=== PATIENT | male | born 1955 | race Caucasian/White ===

== ENCOUNTER 2019-06-07 12:32 | Observation (INO) ==
--- NOTE | 2019-06-07 13:23 | Emergency Department Note ---
Disposition Clinical Impression: Urinary retention, Hyperkalemia Renal failure Qualifiers: Renal failure chronicity: unspecified chronicity Qualified Code(s): N19 - Uns pecified kidney failure Disposition: Admitted As Inpatient Condition: Fair Time of Disposition: 15:09 General Adult HPI - General Chief complaint: ED General Medical Stated complaint: Stage 5 renal failure Time Seen by Provider: 06/07/19 12:37 Source: patient Mode of arrival: private vehicle Limitations: no limitations Nursing Notes Reviewed: Yes Vital Signs Reviewed: Yes - History of Present Illness HPI Narrative: 63-year-old male history of CHF on Plavix who presents for abnormal labs. States that he was seen on Tuesday by nephrology. He had labs ordered and was called today because they were abnormal. States he was told to come here to start dialysis. He actually has not had any complaints and feels at his baseline. Denies any chest pain or shortness of breath. No fevers, nausea vomiting or diarrhea. He is still having urine output. No other complaints. Pt Subjective Complaint: Abnormal labs Onset (ago): day(s) Pain Scale: 0 Improves with: nothing Worsens with: nothing Associated symptoms: Reports: denies other symptoms - Related Data Home Medications Medication Instructions Recorded Confirmed Aspirin [[place] Aspirin EC] 81 mg PO DAILY 06/07/19 06/07/19 Carvedilol 12.5 mg PO BID 06/07/19 06/07/19 Clopidogrel [Plavix] 75 mg PO DAILY 06/07/19 06/07/19 Furosemide [Lasix] 40 mg PO BID 06/07/19 06/07/19 Losartan Potassium 100 mg PO DAILY 06/07/19 06/07/19 Spironolactone [Aldactone] 25 mg PO DAILY 06/07/19 06/07/19 glipiZIDE [Glipizide] 10 mg PO BID 06/07/19 06/07/19 Allergies Allergy/AdvReac Type Severity Reaction Status Date / Time No Known Allergies Allergy Verified 06/07/19 12:54 All systems ED: reviewed and negative except as stated. Constitutional: Denies: fever Cardiovascular: Denies: chest pain Respiratory: Denies: dyspnea Gastrointestinal: Denies: abdominal pain, nausea, vomiting, diarrhea Genitourinary: Denies: dysuria, hematuria Past Medical History - Past Medical History Attestation: Yes The following information was validated with the patient. Source: patient Medical history: Reports: diabetes Psychiatric history: Reports: no psych history - Social History Smoking Status: Current every day smoker Alcohol use: Reports: none Drug use: Reports: none Physical Exam - General Limitations: no limitations General appearance: alert, in no apparent distress - Head Head exam: atraumatic, normocephalic, normal inspection - Eye Eye exam: Present: normal appearance - ENT ENT exam: normal exam - Neck Neck exam: Present: normal inspection - Chest Chest inspection: Present: normal inspection, symmetric chest wall rise - Respiratory Respiratory exam: Present: normal lung sounds bilaterally - Cardiovascular Cardiovascular exam: Present: regular rate, normal rhythm, irregular rhythm - Abdominal Exam Abdominal exam: Present: soft, Non-Tender. Absent: tenderness, distention, rigidity - Extremities Exam Extremities exam: Present: normal inspection, full ROM - Expanded Upper Extremity Exam Shoulder exam: Present: normal inspection, full ROM Arm exam: Present: normal inspection, full ROM Elbow exam: Present: normal inspection, full ROM Forearm/Wrist exam: Present: normal inspection, full ROM Hand exam: Present: normal inspection, full ROM - Expanded Lower Extremity Exam Hip/Pelvis exam: Present: normal inspection, full ROM Upper leg exam: Present: normal inspection, full ROM Knee exam: Present: normal inspection, full ROM Lower leg exam: Present: normal inspection, full ROM Ankle exam: Present: normal inspection, full ROM Foot/toe exam: Present: normal inspection, full ROM - Skin Skin exam: Present: warm, dry Course Course Narrative: Seen and examined. Vital signs reviewed. Plan for EKG, chest x-ray, CT imaging to evaluate for obstruction, labs and discussed with nephrology with likely admission. - Consultations Consultation #1: Discussed the case with Dr. Griffin in the emergency department. He will see the patient in consultation. Consultation #2: Discussed this case with Dr. Chen on-call for urology. Discussed the patient's exam as well as imaging and labs. Agrees with Carter placement. Cautious on hypotension from removing the patient's significant retained urine. They will see the patient in consultation. Vital Signs Temperature 97.4 F L 06/07/19 12:39 Pulse Rate 58 06/07/19 12:39 Respiratory Rate 18 06/07/19 12:39 Blood Pressure 89/60 06/07/19 12:39 O2 Sat by Pulse Oximetry 100 06/07/19 12:39 Temperature 97.4 F L 06/07/19 12:39 Pulse Rate 58 06/07/19 14:27 Respiratory Rate 18 06/07/19 14:27 Blood Pressure 105/62 06/07/19 14:27 O2 Sat by Pulse Oximetry 98 06/07/19 14:27 Oxygen Delivery Oxygen Delivery Room Air Medical Decision Making - MDM Narrative Medical decision making narrative: 63-year-old male presenting with labs concerning for renal failure. He has no complaints here. CT scan shows a distended bladder consistent with obstructive uropathy. He did have a potassium of 6 which was treated with insulin, D50 and calcium. No EKG changes. Case discussed both with nephrology and urology. The patient is admitted to the hospital service. - Lab Data Lab results reviewed: Yes I reviewed the patient's lab results. Result diagrams: 06/07/19 12:55 06/07/19 12:55 Lab Results 06/07/19 06/07/19 06/07/19 Range/Units 12:55 12:55 12:55 WBC 10.5 (4.3-11.1) K/mcL RBC 3.87 L (4.19-5.50) M/mcL Hgb 11.8 L (12.9-16.9) g/dL Hct 36.0 L (37.5-50.1) % MCV 93.0 (83.0-100.0) fL MCH 30.5 (28.0-33.3) pg MCHC 32.8 (31.6-35.5) g/dL RDW 13.2 (11.5-14.5) % Plt Count 241 (140-400) K/mcL MPV 10.0 (9.4-12.4) fL Immature Gran % 1.1 (0-4) % Seg Neutrophils % 79.6 % Lymphocytes % 13.6 % Monocytes % 4.4 % Eosinophils % 1.0 % Basophils % 0.3 % Neutrophils # 8.4 (1.6-8.9) K/mcL Lymphocytes # 1.4 (0.6-4.6) K/mcL Monocytes # 0.5 (0.0-1.3) K/mcL Eosinophils # 0.1 (0.0-0.6) K/mcL Basophils # 0.0 (0.0-0.2) K/mcL PT 12.0 (9.4-12.1) Seconds INR 1.1 Sodium 133 L (136-145) mEq/L Potassium 6.0 H (3.5-5.1) mEq/L Chloride 92 L (98-107) mEq/L Carbon Dioxide 23 (23-29) mEq/L BUN 88 H (8-23) mg/dL Creatinine 4.39 H (0.70-1.30) mg/dL Est GFR ( Amer) 17 L (> 60) Est GFR (Non-Af Amer) 14 L (> 60) BUN/Creatinine Ratio 20 (6-26) Glucose 152 H (70-105) mg/dL Calculated Osmolality 306 H (280-300) Calcium 10.1 (8.6-10.3) mg/dL Urine Color (Yellow) Urine Clarity (Clear) Urine pH (5.0-8.0) pH Units Ur Specific [place] (1.010-1.025) Urine Protein (Neg-Trace) mg/dL Urine Glucose (UA) (Normal) mg/dL Urine Ketones (Negative) mg/dL Urine Blood (Negative) Urine Nitrite (Negative) Urine Bilirubin (Negative) Urine Urobilinogen (Normal) mg/dL Ur Leukocyte Esterase (Negative) Urine Microscopic RBC (0-3) per hpf Urine Microscopic WBC (0-3) per hpf Ur Squamous Epith Cells (None-Few) per lpf Urine Bacteria (None-Few) per hpf Hyaline Casts (None-Few) per lpf Ur Culture Indicated? (NO) 06/07/19 Range/Units 14:16 WBC (4.3-11.1) K/mcL RBC (4.19-5.50) M/mcL Hgb (12.9-16.9) g/dL Hct (37.5-50.1) % MCV (83.0-100.0) fL MCH (28.0-33.3) pg MCHC (31.6-35.5) g/dL RDW (11.5-14.5) % Plt Count (140-400) K/mcL MPV (9.4-12.4) fL Immature Gran % (0-4) % Seg Neutrophils % % Lymphocytes % % Monocytes % % Eosinophils % % Basophils % % Neutrophils # (1.6-8.9) K/mcL Lymphocytes # (0.6-4.6) K/mcL Monocytes # (0.0-1.3) K/mcL Eosinophils # (0.0-0.6) K/mcL Basophils # (0.0-0.2) K/mcL PT (9.4-12.1) Seconds INR Sodium (136-145) mEq/L Potassium (3.5-5.1) mEq/L Chloride (98-107) mEq/L Carbon Dioxide (23-29) mEq/L BUN (8-23) mg/dL Creatinine (0.70-1.30) mg/dL Est GFR ( Amer) (> 60) Est GFR (Non-Af Amer) (> 60) BUN/Creatinine Ratio (6-26) Glucose (70-105) mg/dL Calculated Osmolality (280-300) Calcium (8.6-10.3) mg/dL Urine Color Yellow (Yellow) Urine Clarity Clear (Clear) Urine pH 5.0 (5.0-8.0) pH Units Ur Specific [place] 1.013 (1.010-1.025) Urine Protein 30 H (Neg-Trace) mg/dL Urine Glucose (UA) Normal (Normal) mg/dL Urine Ketones Negative (Negative) mg/dL Urine Blood Negative (Negative) Urine Nitrite Negative (Negative) Urine Bilirubin Negative (Negative) Urine Urobilinogen Normal (Normal) mg/dL Ur Leukocyte Esterase Negative (Negative) Urine Microscopic RBC 0-3 (0-3) per hpf Urine Microscopic WBC 0-3 (0-3) per hpf Ur Squamous Epith Cells Few (None-Few) per lpf Urine Bacteria None Seen (None-Few) per hpf Hyaline Casts None Seen (None-Few) per lpf Ur Culture Indicated? NO (NO) - Radiology Data Radiology results reviewed: Yes I reviewed the patient's radiology results. Chest X-Ray 06/07/19 12:49 IMPRESSION: Minimal right basilar atelectasis or scarring. D/ / Seymour Murcia MD / Seymour Murcia MD Interpreting Provider: Seymour Murcia MD Abdomen/Pelvis CT 06/07/19 13:17 IMPRESSION: 1. No acute abnormality in the abdomen or pelvis on the noncontrast CT. No hydronephrosis. No renal atrophy. The kidneys measure between 10-10.5 cm in length. 2. Distended urinary bladder up to 15 x 8 x 9 cm to the level of the umbilicus. Mildly enlarged prostate gland. 3. Diffuse atherosclerosis in the abdominal aorta. D/ / Yehuda Alcantar MD / Yehuda Alcantar MD Interpreting Provider: Yehuda Alcantar MD - EKG Data EKG #1 EKG attestation: Yes I reviewed and interpreted this EKG. EKG results narrative: EKG demonstrates a sinus rhythm with a right bundle-branch block with a rate of 64 bpm. Prolonged QRS ration 179. No gross ST elevations or depressions. No acute ischemic findings. S.Hermelinda - Marco Antonio Situation: Demographics, MOA Background: Presenting Complaint, Relevant PMH, Meds, & Allergies Assessment: Course and respsone to treatment, Exam Concerns, Patient/Family Expectation, Pertinant Lab Results Recommendation: Barrier(s) to disposition, Recommendation based on pending studies, treatments, or consults S.BHimanshu Report Given to: Dr. Steph Bernard Repor Time: 14:30
[2019-06-07 13:29] LABS: Calcium 10.1 mg/dL (8.6-10.3)
[2019-06-07 13:30] LABS: Basophils % 0.3 %; Eosinophils # 0.1 K/mcL (0.0-0.6); Hemoglobin 11.8 g/dL (12.9-16.9); Immature Granulocytes % 1.1 % (0-4); Lymphocytes # 1.4 K/mcL (0.6-4.6); Lymphocytes % 13.6 %; Mean Corpuscular HGB Conc 32.8 g/dL (31.6-35.5); Mean Corpuscular Hemoglobin 30.5 pg (28.0-33.3); Monocytes # 0.5 K/mcL (0.0-1.3); Monocytes % 4.4 %; Neutrophils # 8.4 K/mcL (1.6-8.9); Platelet Count 241 K/mcL (140-400); Red Blood Count 3.87 M/mcL (4.19-5.50); Red Cell Distribution Width 13.2 % (11.5-14.5); Segmented Neutrophils % 79.6 %; White Blood Count 10.5 K/mcL (4.3-11.1)
[2019-06-07 13:37] LABS: INR 1.1
[2019-06-07] MEDS ORDERED: Insulin Human Regular 10 UNIT in 0.9 % Sodium Chloride 10 ML IV ONE (13:42)
[2019-06-07] MEDS ORDERED: *HR* Dextrose 50 % in Water (Syg) 50 ML SYRINGE IVP ONE (13:42)
[2019-06-07] MEDS ORDERED: Calcium Gluconate 1gm/50mL 1 GM/50 ML BAG IVPB ONE ×2 (13:43→14:03)
[2019-06-07] MEDS ORDERED: *HR* Dextrose 50 % in Water (Syg) 50 ML SYRINGE ONE (14:12)
[2019-06-07 14:25] LABS: Bilirubin,Urine Negative (Negative); Blood,Urine Negative (Negative); Clarity,Urine Clear (Clear); Color,Urine Yellow (Yellow); Glucose,Urine (UA) Normal (Normal); Ketones,Urine Negative (Negative); Leukocyte Esterase,Urine Negative (Negative); Nitrite,Urine Negative (Negative); Protein,Urine 30 mg/dL (Neg-Trace); Specific Gravity,Urine 1.013 (1.010-1.025); Urobilinogen,Urine Normal (Normal)
[2019-06-07 14:26] LABS: Bacteria,Urine None Seen per hpf (None-Few); Hyaline Casts,Urine None Seen per lpf (None-Few); RBC,Urine 0-3 per hpf (0-3); Squamous Epithelial Cell,Urine Few per lpf (None-Few); WBC,Urine 0-3 per hpf (0-3)
--- NOTE | 2019-06-07 16:07 | Urology - Consult Note ---
<Marianna Tabares N - Last Filed: 06/07/19 16:05> Date of Encounter: 06/07/19 Time of Encounter: 15:45 - Assessment and Plan (1) Urinary retention Current Visit: Yes Status: Acute Assessment and plan: Patient is a 63-year-old male who presents with urinary retention. I suspect this has been an ongoing issue as patient did not appear to be in any discomfort prior to Carter placement. I will start patient on Flomax daily, and he will require an indwelling Carter catheter for approximately 1 week. I will also order a PSA since patient has no record of screening. Anticipate PSA elevation secondary to catheter placement and volume of prostate. We will repeat PSA if needed. We will arrange for an outpatient voiding trial with Dr. Chen. Urology CN:[facility] Consult date: 06/07/19 Reason for consult Urology: Other (urinary retention) Requesting physician: Jerry Belcher History of present illness: Patient is a 63-year-old male who presents with urinary retention and an enlarged prostate. Patient states he underwent blood work with Dr. Tello earlier this week, and [place] [facility] call patient to notify him of critical lab results. Patient was instructed to report to the emergency department to begin dialysis. On initial evaluation, patient was found to have an elevated serum creatinine to 4.39 and GFR 14. Patient underwent a CT of the abdomen and pelvis to rule out uropathy and was found to have a markedly distended bladder to the level of umbilicus as well as an enlarged prostate. Patient denies any abdominal pain or urge to urinate. Patient denies any past history of urinary retention. Patient admits to a baseline of significant nocturia, urinary urgency, frequency and occasional urge incontinence. Patient reports no acute changes in voiding habits. He denies any known family history of prostate or other malignancy. Patient is unsure if he has been screened for prostate cancer. Past Med Surg Social Fam HX - Past Medical History Medical history: diabetes Psychiatric history: no psych history - Past Surgical History Additional surgical history: neck surgery - Social History Smoking Status: Current every day smoker Alcohol use: none Drug use: none - Additional Family History Additional family history: No known documented family history of prostate cancer or malignancy Medications and Allergies Aspirin [[place] Aspirin EC] 81 mg PO DAILY 06/07/19 [History] Carvedilol 12.5 mg PO BID 06/07/19 [History] Clopidogrel [Plavix] 75 mg PO DAILY 06/07/19 [History] Furosemide [Lasix] 40 mg PO BID 06/07/19 [History] Losartan Potassium 100 mg PO DAILY 06/07/19 [History] Spironolactone [Aldactone] 25 mg PO DAILY 06/07/19 [History] glipiZIDE [Glipizide] 10 mg PO BID 06/07/19 [History] Allergy/AdvReac Type Severity Reaction Status Date / Time No Known Allergies Allergy Verified 06/07/19 12:54 Review of Systems - Constitutional no chills, no fatigue, no fever(s) - EENT Nose, mouth and throat: no dizziness, no headache(s) - Cardiovascular no chest pain, no diaphoresis - Respiratory no cough, no dyspnea - Gastrointestinal no abdominal pain, no nausea, no vomiting - Genitourinary nocturia, post void dribbling, urinary frequency, urinary incontinence, urinary urgency, no change in urinary stream, no difficulty urinating, no dysuria, no flank pain, no hematuria, no urinary hesitancy - Musculoskeletal no back pain, no muscle weakness - Integumentary no erythema, no rash - Neurological no confusion, no syncope - Psychiatric no anxiety, no confusion - Hematologic/Lymphatic no easy bleeding, no easy bruising - Allergic/Immunologic no throat swelling, no wheezing Exam Initial Vital Signs Temp Pulse Resp BP Pulse Ox 97.4 F L 58 18 89/60 100 06/07/19 12:39 06/07/19 12:39 06/07/19 12:39 06/07/19 12:39 06/07/19 12:39 - General physical appearance Present: no distress, no pain - Eyes Present: PERRL, normal ocular movement - ENT Present: normal nares - Neck Present: no masses, trachea midline, no lymphadenopathy - Respiratory Present: normal respiratory effort - Cardiovascular Cardiovascular exam IM: bradycardia - Abdomen Abdomen: Present: soft, non tender. Absent: distended - Genitourinary other (Carter catheter is indwelling and draining transparent, clear yellow urine into bedside bag; 900 mL) - Integumentary Present: no rash, no abnormal pigmentation - Neurologic Present: normal coordination - Musculoskeletal Present: other (Normal posture) Urology Results - Labs 06/07/19 12:55 06/07/19 12:55 Abnormal lab results RBC 3.87 M/mcL (4.19-5.50) L 06/07/19 12:55 Hgb 11.8 g/dL (12.9-16.9) L 06/07/19 12:55 Hct 36.0 % (37.5-50.1) L 06/07/19 12:55 Sodium 133 mEq/L (136-145) L 06/07/19 12:55 Potassium 6.0 mEq/L (3.5-5.1) H 06/07/19 12:55 Chloride 92 mEq/L (98-107) L 06/07/19 12:55 BUN 88 mg/dL (8-23) H 06/07/19 12:55 Creatinine 4.39 mg/dL (0.70-1.30) H 06/07/19 12:55 Est GFR ( Amer) 17 (> 60) L 06/07/19 12:55 Est GFR (Non-Af Amer) 14 (> 60) L 06/07/19 12:55 Glucose 152 mg/dL (70-105) H 06/07/19 12:55 Calculated Osmolality 306 (280-300) H 06/07/19 12:55 Urine Protein 30 mg/dL (Neg-Trace) H 06/07/19 14:16 Diabetes panel 06/07/19 Range/Units 12:55 Sodium 133 L (136-145) mEq/L Potassium 6.0 H (3.5-5.1) mEq/L Chloride 92 L (98-107) mEq/L Carbon Dioxide 23 (23-29) mEq/L BUN 88 H (8-23) mg/dL Creatinine 4.39 H (0.70-1.30) mg/dL Glucose 152 H (70-105) mg/dL Calcium 10.1 (8.6-10.3) mg/dL Calcium panel 06/07/19 Range/Units 12:55 Calcium 10.1 (8.6-10.3) mg/dL Pituitary panel 06/07/19 Range/Units 12:55 Sodium 133 L (136-145) mEq/L Potassium 6.0 H (3.5-5.1) mEq/L Chloride 92 L (98-107) mEq/L Carbon Dioxide 23 (23-29) mEq/L BUN 88 H (8-23) mg/dL Creatinine 4.39 H (0.70-1.30) mg/dL Glucose 152 H (70-105) mg/dL Calcium 10.1 (8.6-10.3) mg/dL Adrenal panel 06/07/19 Range/Units 12:55 Sodium 133 L (136-145) mEq/L Potassium 6.0 H (3.5-5.1) mEq/L Chloride 92 L (98-107) mEq/L Carbon Dioxide 23 (23-29) mEq/L BUN 88 H (8-23) mg/dL Creatinine 4.39 H (0.70-1.30) mg/dL Glucose 152 H (70-105) mg/dL Calcium 10.1 (8.6-10.3) mg/dL All other labs normal. - Imaging CT scan - abdomen: report reviewed, image reviewed CT scan - pelvis: report reviewed, image reviewed Consult Discharge Plan - Plan Referrals: Susan Carrion, [employer] [Primary Care Provider] - <Juan Chen - Last Filed: 06/08/19 10:50> Date of Encounter: 06/08/19 - Assessment and Plan (1) Urinary retention Current Visit: Yes Status: Acute Assessment and plan: pt seen and examined in conjunction with PA. agree with findings. will need to keep cath in place for 1-2 weeks before attempted voiding trial. high potential for recurrent retention/neurogenic bladder. will start tamsulosin. may need to consider greenlight PVP as outpatient if continued issues. hopefully renal function will improve with cath drainage. Exam Initial Vital Signs Temp Pulse Resp BP Pulse Ox 97.4 F L 58 18 89/60 100 06/07/19 12:39 06/07/19 12:39 06/07/19 12:39 06/07/19 12:39 06/07/19 12:39 Urology Results - Labs 06/08/19 04:18 06/08/19 04:18 Abnormal lab results RBC 3.31 M/mcL (4.19-5.50) L 06/08/19 04:18 Hgb 10.0 g/dL (12.9-16.9) L D 06/08/19 04:18 Hct 30.8 % (37.5-50.1) L 06/08/19 04:18 Sodium 133 mEq/L (136-145) L 06/07/19 12:55 Potassium 6.0 mEq/L (3.5-5.1) H 06/07/19 12:55 Chloride 92 mEq/L (98-107) L 06/07/19 12:55 BUN 82 mg/dL (8-23) H 06/08/19 04:18 Creatinine 3.85 mg/dL (0.70-1.30) H 06/08/19 04:18 Est GFR ( Amer) 19 (> 60) L 06/08/19 04:18 Est GFR (Non-Af Amer) 16 (> 60) L 06/08/19 04:18 Glucose 152 mg/dL (70-105) H 06/07/19 12:55 POC Glucose 137 mg/dL (70-99) H 06/08/19 06:41 Calculated Osmolality 307 (280-300) H 06/08/19 04:18 Phosphorus 5.8 mg/dL (2.7-4.5) H 06/08/19 04:18 Troponin I 0.05 ng/mL (< 0.04) H* 06/08/19 04:18 Triglycerides 536 mg/dL (< 150) H 06/08/19 04:18 Cholesterol 217 mg/dL (< 200) H 06/08/19 04:18 HDL Cholesterol 21 mg/dL (40-59) L 06/08/19 04:18 Cholesterol/HDL Ratio 10.3 (0-4.9) H 06/08/19 04:18 Urine Protein 30 mg/dL (Neg-Trace) H 06/07/19 18:40 Urine Blood Moderate (Negative) H 06/07/19 18:40 Urine Microscopic RBC 5-15 per hpf (0-3) H 06/07/19 18:40 Urine Microscopic WBC 5-15 per hpf (0-3) H 06/07/19 18:40 Ur Squamous Epith Cells Many per lpf (None-Few) H 06/07/19 18:40 Diabetes panel 06/07/19 06/07/19 06/08/19 Range/Units 12:55 16:16 04:18 Sodium 133 L 136 (136-145) mEq/L Potassium 6.0 H 5.0 5.1 (3.5-5.1) mEq/L Chloride 92 L 100 (98-107) mEq/L Carbon Dioxide 23 23 (23-29) mEq/L BUN 88 H 82 H (8-23) mg/dL Creatinine 4.39 H 3.85 H (0.70-1.30) mg/dL Glucose 152 H 105 (70-105) mg/dL Calcium 10.1 9.8 (8.6-10.3) mg/dL AST 18 (13-39) Units/L ALT 14 (7-52) Units/L Alkaline Phosphatase 64 (34-104) Units/L Albumin 3.8 (3.5-5.7) g/dL Triglycerides 536 H (< 150) mg/dL HDL Cholesterol 21 L (40-59) mg/dL Calcium panel 06/07/19 06/08/19 Range/Units 12:55 04:18 Calcium 10.1 9.8 (8.6-10.3) mg/dL Phosphorus 5.8 H (2.7-4.5) mg/dL Albumin 3.8 (3.5-5.7) g/dL Pituitary panel 06/07/19 06/07/19 06/08/19 Range/Units 12:55 16:16 04:18 Sodium 133 L 136 (136-145) mEq/L Potassium 6.0 H 5.0 5.1 (3.5-5.1) mEq/L Chloride 92 L 100 (98-107) mEq/L Carbon Dioxide 23 23 (23-29) mEq/L BUN 88 H 82 H (8-23) mg/dL Creatinine 4.39 H 3.85 H (0.70-1.30) mg/dL Glucose 152 H 105 (70-105) mg/dL Calcium 10.1 9.8 (8.6-10.3) mg/dL Adrenal panel 06/07/19 06/07/19 06/08/19 Range/Units 12:55 16:16 04:18 Sodium 133 L 136 (136-145) mEq/L Potassium 6.0 H 5.0 5.1 (3.5-5.1) mEq/L Chloride 92 L 100 (98-107) mEq/L Carbon Dioxide 23 23 (23-29) mEq/L BUN 88 H 82 H (8-23) mg/dL Creatinine 4.39 H 3.85 H (0.70-1.30) mg/dL Glucose 152 H 105 (70-105) mg/dL Calcium 10.1 9.8 (8.6-10.3) mg/dL Total Bilirubin 0.4 (0.3-1.0) mg/dL AST 18 (13-39) Units/L ALT 14 (7-52) Units/L Alkaline Phosphatase 64 (34-104) Units/L Albumin 3.8 (3.5-5.7) g/dL All other labs normal.
[2019-06-07] MEDS ORDERED: Ondansetron 4 MG/2 ML VIAL IVP PRN (16:13)
[2019-06-07] MEDS ORDERED: Naloxone 0.4 MG/ML INJ IVP PRN (16:13)
[2019-06-07] MEDS ORDERED: Acetaminophen 325 MG TABLET PO PRN (16:13)
[2019-06-07] MEDS ORDERED: *HR* OxyCODONE Immed Rel 5 MG TABLET PO PRN (16:13)
--- NOTE | 2019-06-07 16:13 | Internal Med History&Physical ---
Date of Encounter: 06/07/19 Time of Encounter: 16:12 Internal Medicine - H&P: HPI Chief complaint: abnormal labs History of present illness: Mr. Swanson is a 63 year old male WITH h/o CHF on furosemide, spironolactone and losartan was sent from nephrology clinic for further evaluation and management of abnormal labs that is suggesting acute kidney injury as well as hyperkalemia, the patient was admitted by the ER staff and his imaging studies was suggestive of severe urine retention, hyperkalemia treated medically. Urology was consulted for further evaluation and management of urinary retention, The patient denying chest pain, shortness of breath, orthopnea, paroxysmal nocturnal dyspnea, Progressive forcing of lower extremity edema, weakness, nausea, vomiting, loss of appetite. Nephrology is also noted to further evaluate that he noted to start renal replacement therapy while inpatient . The patient was admitted for further evaluation and management. Past Med Surg Social Fam HX - Past Medical History Medical history: diabetes Psychiatric history: no psych history - Past Surgical History Additional surgical history: neck surgery - Social History Smoking Status: Current every day smoker Alcohol use: none Drug use: none Internal Medicine - H&P: Meds Aspirin [[place] Aspirin EC] 81 mg PO DAILY 06/07/19 [History] Carvedilol 12.5 mg PO BID 06/07/19 [History] Clopidogrel [Plavix] 75 mg PO DAILY 06/07/19 [History] glipiZIDE [Glipizide] 10 mg PO BID 06/07/19 [History] Tamsulosin [Flomax] 0.4 mg PO DAILY #30 capsule 06/09/19 [Rx] Allergy/AdvReac Type Severity Reaction Status Date / Time No Known Allergies Allergy Verified 06/07/19 12:54 All Systems PM: A 10-system review of systems was performed and is negative for pertinent findings except as documented above in the HPI. - Constitutional Vitals: Temp Pulse Resp BP Pulse Ox 97.2 F L 59 16 96/57 95 06/07/19 16:04 06/07/19 16:04 06/07/19 16:04 06/07/19 16:04 06/07/19 16:04 General appearance: Present: A&O X 3 Exam: , - Head Head exam: Present: atraumatic, normocephalic - Neck Neck exam general surgery: Present: supple, trachea midline. Absent: lymphadenopathy - Respiratory Respiratory exam: Present: CTAB. Absent: accessory muscle use, rales, rhonchi, wheezes - Cardiovascular Cardiovascular exam: Present: RRR, +S1, +S2. Absent: diastolic murmur, gallop, rubs, systolic murmur - GI/Abdominal GI/Abdominal exam: Present: normal bowel sounds, soft, no peritoneal signs. Absent: distended, tenderness - Extremities Exam Extremities exam: Present: warm, radial pulses palpable and symmetrical. Absent: calf tenderness, cyanotic, pedal edema Internal Med - H&P Results - Labs CBC & Chem 7: 06/09/19 07:18 06/09/19 07:18 Labs: Short CBC 06/07/19 Range/Units 12:55 WBC 10.5 (4.3-11.1) K/mcL Hgb 11.8 L (12.9-16.9) g/dL Hct 36.0 L (37.5-50.1) % Plt Count 241 (140-400) K/mcL Neutrophils # 8.4 (1.6-8.9) K/mcL BMP 06/07/19 12:55 Sodium 133 L Potassium 6.0 H Chloride 92 L Carbon Dioxide 23 BUN 88 H Creatinine 4.39 H Glucose 152 H Calcium 10.1 Urine 06/07/19 Range/Units 14:16 Urine Color Yellow (Yellow) Urine Clarity Clear (Clear) Urine pH 5.0 (5.0-8.0) pH Units Ur Specific [place] 1.013 (1.010-1.025) Urine Protein 30 H (Neg-Trace) mg/dL Urine Glucose (UA) Normal (Normal) mg/dL - Impressions ITS Impressions Chest X-Ray 06/07/19 12:49 IMPRESSION: Minimal right basilar atelectasis or scarring. D/ / Seymour Murcia MD / Seymour Murcia MD Interpreting Provider: Seymour Murcia MD Abdomen/Pelvis CT 06/07/19 13:17 IMPRESSION: 1. No acute abnormality in the abdomen or pelvis on the noncontrast CT. No hydronephrosis. No renal atrophy. The kidneys measure between 10-10.5 cm in length. 2. Distended urinary bladder up to 15 x 8 x 9 cm to the level of the umbilicus. Mildly enlarged prostate gland. 3. Diffuse atherosclerosis in the abdominal aorta. D/ / 06/07/2019 14:32:13 Yehuda Alcantar MD / Coreen Salamanca Interpreting Provider: Yehuda Alcantar MD - Assessment and Plan (1) COLETTE (acute kidney injury) Status: Acute Assessment and plan: Imaging studies is suggestive of severe obstructive uropathy, neurology was consulted for further evaluation and management, expect significant recovery after revealed relieving the obstruction, we will hold furosemide, spironolactone and losartan for now, renal dosing of medication as better current EGFR, strict I&O's and repeat renal panel in a.m. (2) Urinary retention Status: Acute (3) Hyperkalemia Status: Acute Assessment and plan: Most likely secondary to renal impairment in the setting of obstructive uropathy, no evidence of EKG changes, repeat level suggestive of successfully m edical management (4) Diabetes mellitus Status: Acute Assessment and plan: We will start the patient insulin sliding scale with coverage. Qualifiers: Diabetes mellitus type: type 2 Diabetes mellitus alf insulin use: without buttermaker use Diabetes mellitus complication status: with hypoglycemia Diabetes mellitus complication detail: without coma Qualified Code(s): E11.649 - Type 2 diabetes mellitus with hypoglycemia without coma - Time Spent With Patient Total time spent is greater than 50% in coordination of care (as documented) at patient's floor/unit and/or counseling patient:
[2019-06-07] MEDS: 0.9 % Sodium Chloride 1,000 ML IVC SCH ×2 (16:59→23:55)
[2019-06-07 17:06] LABS: Troponin I 0.03 ng/mL (< 0.04)
[2019-06-07 19:00] LABS: Bilirubin,Urine Negative (Negative); Blood,Urine Moderate (Negative); Clarity,Urine Clear (Clear); Color,Urine Yellow (Yellow); Glucose,Urine (UA) Normal (Normal); Ketones,Urine Negative (Negative); Leukocyte Esterase,Urine Negative (Negative); Nitrite,Urine Negative (Negative); PH,Urine 5.5 pH Units (5.0-8.0); Protein,Urine 30 mg/dL (Neg-Trace); Specific Gravity,Urine 1.015 (1.010-1.025); Urobilinogen,Urine Normal (Normal)
[2019-06-07 19:03] LABS: Bacteria,Urine None Seen per hpf (None-Few); Hyaline Casts,Urine Few per lpf (None-Few); Squamous Epithelial Cell,Urine Many per lpf (None-Few)
[2019-06-07 19:17] LABS: Transitional Epi Cells,Urine Few per hpf (None-Few)
[2019-06-08 04:51] LABS: Basophils % 0.2 %; Eosinophils # 0.2 K/mcL (0.0-0.6); Eosinophils % 1.7 %; Hematocrit 30.8 % (37.5-50.1); Immature Granulocytes % 0.7 % (0-4); Lymphocytes # 1.8 K/mcL (0.6-4.6); Lymphocytes % 19.3 %; Mean Corpuscular HGB Conc 32.5 g/dL (31.6-35.5); Mean Corpuscular Hemoglobin 30.2 pg (28.0-33.3); Mean Corpuscular Volume 93.1 fL (83.0-100.0); Monocytes # 0.8 K/mcL (0.0-1.3); Monocytes % 8.2 %; Neutrophils # 6.6 K/mcL (1.6-8.9); Platelet Count 212 K/mcL (140-400); Red Blood Count 3.31 M/mcL (4.19-5.50); Red Cell Distribution Width 13.1 % (11.5-14.5); Segmented Neutrophils % 69.9 %; White Blood Count 9.4 K/mcL (4.3-11.1)
[2019-06-08 04:54] LABS: INR 1.1; Prothrombin Time 12.1 Seconds (9.4-12.1)
[2019-06-08 04:58] LABS: Activated Partial Thrombo Time 32.5 Seconds (26.0-36.0)
[2019-06-08 05:09] LABS: Alanine Aminotransferase 14 Units/L (7-52); Albumin 3.8 g/dL (3.5-5.7); Albumin/Globulin Ratio 1.4 (1.1-2.2); Alkaline Phosphatase 64 Units/L (34-104); Aspartate Amino Transferase 18 Units/L (13-39); BUN/Creatinine Ratio 21 (6-26); Bilirubin,Total 0.4 mg/dL (0.3-1.0); Blood Urea Nitrogen 82 mg/dL (8-23); Calcium 9.8 mg/dL (8.6-10.3); Carbon Dioxide 23 mEq/L (23-29); Chloride 100 mEq/L (98-107); Chol/HDL Ratio 10.3 (0-4.9); Cholesterol 217 mg/dL (< 200); Globulin 2.7 g/dL (2.4-3.5); Glucose 105 mg/dL (70-105); HDL Cholesterol 21 mg/dL (40-59); Magnesium 2.6 mg/dL (1.6-2.6); Osmolality,Calculated 307 (280-300); Phosphorous 5.8 mg/dL (2.7-4.5); Potassium 5.1 mEq/L (3.5-5.1); Sodium 136 mEq/L (136-145); Total Protein 6.5 g/dL (6.4-8.9); Triglycerides 536 mg/dL (< 150); eGFR For African Americans 19 (> 60); eGFR For Non-African Americans 16 (> 60)
[2019-06-08] MEDS: Aspirin Enteric Coated 81 MG Tablet PO SCH (07:12)
[2019-06-08] MEDS ORDERED: LOSARTAN POTASSIUM 100 MG PO SCH (09:00)
[2019-06-08] MEDS ORDERED: *HR* Dextrose 50 % in Water (Syg) 50 ML SYRINGE IVP PRN (10:10)
[2019-06-08] MEDS ORDERED: D5% in Water 1,000 ML IVC PRN (10:10)
[2019-06-08] MEDS ORDERED: Dextrose Gel 15 GM/37.5 ML TUBE PO PRN ×2 (10:10)
--- NOTE | 2019-06-08 10:53 | Urology Progress Note ---
Date of Encounter: 06/08/19 Time of Encounter: 10:50 - Assessment and Plan (1) Urinary retention Current Visit: Yes Status: Acute Assessment and plan: dont remove cath. will arrange voiding trial in 1-2 weeks after discharge. s tart tamsulosin. we discussed he is at increased risk for recurrent retention/neurogenic bladder. no further intervention while hospitalized. OK to discharge from standpoint. Nephrology will likely drive decision for discharge. Renal function has improved a little. Progress Note Subjective: feels better Narrative: pt still doing well. no pain. states he was unaware his bladder was so full and had no discomfort. Objective Initial Vital Signs Temp Pulse Resp BP Pulse Ox 97.4 F L 58 18 89/60 100 06/07/19 12:39 06/07/19 12:39 06/07/19 12:39 06/07/19 12:39 06/07/19 12:39 - General physical appearance Present: no distress - Additional Exam urine is clear. - Labs 06/08/19 04:18 06/08/19 04:18 Diabetes panel 06/07/19 06/07/19 06/08/19 Range/Units 12:55 16:16 04:18 Sodium 133 L 136 (136-145) mEq/L Potassium 6.0 H 5.0 5.1 (3.5-5.1) mEq/L Chloride 92 L 100 (98-107) mEq/L Carbon Dioxide 23 23 (23-29) mEq/L BUN 88 H 82 H (8-23) mg/dL Creatinine 4.39 H 3.85 H (0.70-1.30) mg/dL Glucose 152 H 105 (70-105) mg/dL Calcium 10.1 9.8 (8.6-10.3) mg/dL AST 18 (13-39) Units/L ALT 14 (7-52) Units/L Alkaline Phosphatase 64 (34-104) Units/L Albumin 3.8 (3.5-5.7) g/dL Triglycerides 536 H (< 150) mg/dL HDL Cholesterol 21 L (40-59) mg/dL Calcium panel 06/07/19 06/08/19 Range/Units 12:55 04:18 Calcium 10.1 9.8 (8.6-10.3) mg/dL Phosphorus 5.8 H (2.7-4.5) mg/dL Albumin 3.8 (3.5-5.7) g/dL Pituitary panel 06/07/19 06/07/19 06/08/19 Range/Units 12:55 16:16 04:18 Sodium 133 L 136 (136-145) mEq/L Potassium 6.0 H 5.0 5.1 (3.5-5.1) mEq/L Chloride 92 L 100 (98-107) mEq/L Carbon Dioxide 23 23 (23-29) mEq/L BUN 88 H 82 H (8-23) mg/dL Creatinine 4.39 H 3.85 H (0.70-1.30) mg/dL Glucose 152 H 105 (70-105) mg/dL Calcium 10.1 9.8 (8.6-10.3) mg/dL Adrenal panel 06/07/19 06/07/19 06/08/19 Range/Units 12:55 16:16 04:18 Sodium 133 L 136 (136-145) mEq/L Potassium 6.0 H 5.0 5.1 (3.5-5.1) mEq/L Chloride 92 L 100 (98-107) mEq/L Carbon Dioxide 23 23 (23-29) mEq/L BUN 88 H 82 H (8-23) mg/dL Creatinine 4.39 H 3.85 H (0.70-1.30) mg/dL Glucose 152 H 105 (70-105) mg/dL Calcium 10.1 9.8 (8.6-10.3) mg/dL Total Bilirubin 0.4 (0.3-1.0) mg/dL AST 18 (13-39) Units/L ALT 14 (7-52) Units/L Alkaline Phosphatase 64 (34-104) Units/L Albumin 3.8 (3.5-5.7) g/dL Consult Discharge Plan - Plan Referrals: Susan Carrion, FAMILY SERVICES SPECIALIST [Primary Care Provider] -
--- NOTE | 2019-06-08 11:25 | Internal Med Progress Note ---
Hospitalist Progress Note - Encounter Date of Encounter: 06/08/19 Time of Encounter: 09:40 - Subjective Interval History: Patient is awake and alert. Doing better today. He has been having good urine output. No fevers or chills reported overnight. - Exam Vitals: Temp Pulse Resp BP Pulse Ox 97.9 F 62 17 126/71 97 06/08/19 10:52 06/08/19 10:52 06/08/19 10:52 06/08/19 10:52 06/08/19 10:52 Exam: General: Patient is alert, no acute distress, oriented x 3 Respiratory: Good respiratory effort. Normal breath sounds. No wheezing or crackles. Cardiovascular: Regular rate and rhythm. s1 and s2 normal No clicks, rubs, gallops, or murmurs. No pedal edema Abdomen: Abdomen is soft, nontender. Bowel sounds are present Musculoskeletal: Spontaneously moving all extremities Skin: warm, dry, intact. Neuro: Alert oriented x 3 normal cranial nerves, no focal deficits - Assessment and Plan (1) COLETTE (acute kidney injury) Current Visit: Yes Status: Acute (2) Urinary retention Current Visit: Yes Status: Acute (3) Hyperkalemia Current Visit: Yes Status: Acute (4) Diabetes mellitus Current Visit: Yes Status: Acute DVT Prophylaxis: Will place patient on subcutaneous heparin - Summary of Assessment and Plan Summary of Assessment and Plan: Acute kidney injury due to obstructive uropathy: Renal function improving. Continue gentle IV hydration. Creatinine 3.85 today. Continue Carter catheter. Urinary retention: Carter catheter placed. Urology input appreciated. Patient will be discharged with Carter catheter in place when stable for discharge with outpatient follow-up with urology for voiding trial. Diabetes mellitus type 2: Initially had hypoglycemia most likely due to use of glipizide with acute kidney injury. Medications have been held. Blood glucose levels are improving. Will place patient on low-dose correctional scale. Mild troponin elevation: Troponins elevated up to 0.05. Likely due to acute kidney injury. No further workup planned at this time. Hyperkalemia: Improved. Potassium 5.1 today. Will continue to monitor. Moderate risk for complications. - Time Spent with Patient Total time spent is greater than 50% in coordination of care (as documented) at patient's floor/unit and/or counseling patient: Internal Medicine: Result - Labs CBC & Chem 7: 06/08/19 04:18 06/08/19 04:18 Labs: Short CBC 06/07/19 06/08/19 Range/Units 12:55 04:18 WBC 10.5 9.4 (4.3-11.1) K/mcL Hgb 11.8 L 10.0 L D (12.9-16.9) g/dL Hct 36.0 L 30.8 L (37.5-50.1) % Plt Count 241 212 (140-400) K/mcL Neutrophils # 8.4 6.6 (1.6-8.9) K/mcL BMP 06/07/19 06/07/19 06/08/19 12:55 16:16 04:18 Sodium 133 L 136 Potassium 6.0 H 5.0 5.1 Chloride 92 L 100 Carbon Dioxide 23 23 BUN 88 H 82 H Creatinine 4.39 H 3.85 H Glucose 152 H 105 Calcium 10.1 9.8 Cardiac Enzymes 06/07/19 06/07/19 06/08/19 Range/Units 16:16 22:29 04:18 Troponin I 0.03 0.03 0.05 H* (< 0.04) ng/mL 06/08/19 Range/Units 10:00 Troponin I 0.04 H* (< 0.04) ng/mL Liver Function 06/08/19 Range/Units 04:18 Total Bilirubin 0.4 (0.3-1.0) mg/dL AST 18 (13-39) Units/L ALT 14 (7-52) Units/L Alkaline Phosphatase 64 (34-104) Units/L Albumin 3.8 (3.5-5.7) g/dL Urine 06/07/19 06/07/19 Range/Units 14:16 18:40 Urine Color Yellow Yellow (Yellow) Urine Clarity Clear Clear (Clear) Urine pH 5.0 5.5 (5.0-8.0) pH Units Ur Specific [place] 1.013 1.015 (1.010-1.025) Urine Protein 30 H 30 H (Neg-Trace) mg/dL Urine Glucose (UA) Normal Normal (Normal) mg/dL - ABG Interpretation ABG results: PT/INR, D-dimer PT 12.1 Seconds (9.4-12.1) 06/08/19 04:18 - Impressions Impressions Chest X-Ray 06/07/19 12:49 IMPRESSION: Minimal right basilar atelectasis or scarring. D/ / Seymour Murcia MD / Seymour Murcia MD Interpreting Provider: Seymour Murcia MD Abdomen/Pelvis CT 06/07/19 13:17 IMPRESSION: 1. No acute abnormality in the abdomen or pelvis on the noncontrast CT. No hydronephrosis. No renal atrophy. The kidneys measure between 10-10.5 cm in length. 2. Distended urinary bladder up to 15 x 8 x 9 cm to the level of the umbilicus. Mildly enlarged prostate gland. 3. Diffuse atherosclerosis in the abdominal aorta. 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
[2019-06-08] MEDS: 0.9 % Sodium Chloride 1,000 ML IVC SCH ×2 (11:39→21:35)
[2019-06-08] MEDS: Insulin LISPRO 300 UNITS/3 ML VIAL SQ SCH ×2 (11:42→16:58)
--- NOTE | 2019-06-08 12:39 | Electrocardiograph Report ---
[facility] Test Date: 2019-06-07 Pat Name: Roscoe Swanson Department: EXAM8 Room: 2A34 Gender: M Burn Nurse: : [id number] Requested By: Jerry Belcher Order Number: [id number] Reading MD: Silvino Mann Measurements Intervals [place] Rate: 64 P: -77 [place]: 259 QRS: -75 QRSD: 179 T: -28 QT: 451 QTc: 466 Interpretive Statements Sinus or ectopic atrial rhythm Prolonged [place] interval Right bundle branch block Electronically Signed On 06-08-2019 12:37:57 EDT by Silvino Mann
--- NOTE | 2019-06-08 13:36 | Nephrology Consult Note ---
Date of Encounter: 06/08/19 Time of Encounter: 10:15 Assessment and Plan (1) COLETTE (acute kidney injury) Current Visit: Yes Status: Acute Likely secondary to obstructive uropathy, patient had Carter placed with 1 L of urine removed CT abdomen showed a distended bladder Urology is on board started patient on tamsulosin They will try a voiding trial in 1-2 weeks We are unsure patient's baseline please see no evidence EKG Patient's renal function is improving post Carter catheter placement Urine output expected after obstruction We will continue monitor patient's renal function Continue renally protective strategies, avoid nephrotoxic substances, renally dose medications as needed (2) CKD (chronic kidney disease) Current Visit: Yes Status: Acute Unknown baseline for patient Most recent outpatient labs that are available May 25 showed creatinine of 3.36, GFR 21, BUN of 51 Referred recently for decreased kidney function Patient states that his labs in July showed his renal function was fine to his knowledge Patient is on spironolactone and Lasix for congestive heart failure Patient had no urologic symptoms but was retaining urine please see COLETTE Qualifiers: Chronic kidney disease stage: unspecified stage Qualified Code(s): N18.9 - Chronic kidney disease, unspecified (3) Urinary retention Current Visit: Yes Status: Acute Likely secondary to enlarged prostate Carter catheter placed by urology Patient was started on Flomax daily and will have indwelling Carter for approximately one week Voiding trial scheduled with urology History of Present Illness - Reason for Consult Consult date: 06/07/19 Acute Kidney Injury, Chronic Kidney Disease Requesting physician: Jerry Belcher - Chief Complaint Abnormal labs, urinary retention - History of Present Illness Mr. Swanson is a 63-year-old male with history of CHF on furosemide, spironolactone, losartan he was sent from nephrology clinic for evaluation of abnormal labs. Imaging studies suggested urinary retention, hyperkalemia. Urology was consulted and Carter catheter was placed. Patient was treated with insulin, D50, calcium gluconate for potassium of 6.0 with no EKG changes. Patient was seen and examined at bedside today with no complaints. He stated he did not realize that he was retaining urine. He was he has been taking his spironolactone and furosemide for CHF. He had not noticed any increase in swelling or any other signs of worsening kidney failure. He states that he did not notice any urinary symptoms either. Patient denies any chest pain, shortness of breath, abdominal pain, urinary symptoms, weight dictate that patient is at his baseline for mentation. Patient denies any family history of renal failure, dialysis Patient had labs drawn in July he says were just fine for his kidneys so unsure about what caused his kidney function decline Patient denies any NSAID use or decreased oral intake Today's vitals are stable blood pressure 126/71, afebrile Patient input yesterday 1000 mL, output 1200 from catheter, today has received 480 analysis of fluid, 1500 mL CRN from catheter We are unsure of this patient's baseline kidney function is he was recently sent to nephrology for abnormal labs showing a decreased kidney function. Last outside labs that we have available are from May 25 creatinine 3.36, GFR 21, BUN of 51 Labs today show white blood cell count 9.4, hemoglobin of 10, hematocrit 30.8, sodium 136, potassium 5.1 decreased from 6.0 yesterday, chloride 100, BUN 82 decreased from 88 yesterday, creatinine 3.85 decreased from 4.39, GFR 16 increase from 14 yesterday. Patient is to follow up outpatient with urology in 1-2 weeks for voiding trial, was started on tamsulosin for urinary retention Past Med Surg Social Fam HX - Past Medical History Medical history: CVA, diabetes, hyperlipidemia, hypertension Psychiatric history: no psych history - Past Surgical History Surgical History: appendectomy Additional surgical history: neck surgery - Social History Smoking Status: Current every day smoker Packs per day: 1 Smokeless Tobacco Status: No Alcohol use: none Drug use: none Medications and Allergies Aspirin [[place] Aspirin EC] 81 mg PO DAILY 06/07/19 [History] Carvedilol 12.5 mg PO BID 06/07/19 [History] Clopidogrel [Plavix] 75 mg PO DAILY 06/07/19 [History] Furosemide [Lasix] 40 mg PO BID 06/07/19 [History] Losartan Potassium 100 mg PO DAILY 06/07/19 [History] Spironolactone [Aldactone] 25 mg PO DAILY 06/07/19 [History] glipiZIDE [Glipizide] 10 mg PO BID 06/07/19 [History] Allergy/AdvReac Type Severity Reaction Status Date / Time No Known Allergies Allergy Verified 06/07/19 12:54 Review of Systems Constitutional: no chills, no fatigue, no fever(s) Nose, mouth and throat: no dry mouth Cardiovascular: no chest pain, no irregular heart rhythm Respiratory: no cough, no dyspnea Gastrointestinal: no change in bowel habits Genitourinary Male: no urinary frequency, no urinary hesitancy, no urinary incontinence, no urinary urgency Exam - Vital Signs Vital signs: Initial Vital Signs Temp Pulse Resp BP Pulse Ox 97.4 F L 58 18 89/60 100 06/07/19 12:39 06/07/19 12:39 06/07/19 12:39 06/07/19 12:39 06/07/19 12:39 Vital Signs - Last 8 Hours Temp Pulse Resp BP Pulse Ox 06/08/19 10:52 97.9 F 62 17 126/71 97 06/08/19 07:13 98 06/08/19 06:42 98.0 F 65 17 143/67 98 Intake and Output 06/07/19 06/08/19 06/08/19 23:59 07:59 15:59 Intake Total 1000 / 1000 480 / 480 Output Total 1200 / 1200 800 / 1500 700 / 1500 Balance -200 / -200 -800 / -1020 -220 / -1020 Intake: IV Fluids 1000 / 1000 0.9 % Sodium Chloride 1,000 ML 1000 / 1000 @ 125 mls/hr IVC .Q8H [facility] Rx#: [id number] Oral 480 / 480 Output: Catheter 1200 / 1200 800 / 1500 700 / 1500 Other: Meal Lunch Percent of Meal Consumed 60% Weight 83.3 kg Blood Glucose* 158 137 196 Patient Weight 06/08/19 23:59 Weight 83.3 kg - General Appearance General appearance: well-developed, well-nourished EENT: mucous membranes moist Neck: no JVD, supple Respiratory: clear Cardiology: no murmurs, no rub, no gallops, no edema Gastrointestinal: normoactive bowel sounds, no tenderness, no guarding Integumentary: no rash, warm and dry Results - Lab Results 06/08/19 04:18 06/08/19 04:18 Most recent lab results 06/08/19 04:18 Calcium 9.8 Phosphorus 5.8 H Magnesium 2.6 Consult Discharge Plan - Plan Referrals: Susan Carrion, REFINERY OPERATOR [employer] [facility] [Primary Care Provider] -
[2019-06-08] MEDS: *HR* Heparin 5,000 UNIT/ML VIAL SQ SCH (16:58)
[2019-06-08] MEDS ORDERED: Insulin LISPRO 300 UNITS/3 ML VIAL SQ SCH (21:00)
[2019-06-09] MEDS: *HR* Heparin 5,000 UNIT/ML VIAL SQ SCH (05:36)
[2019-06-09 08:05] LABS: Basophils % 0.3 %; Eosinophils # 0.2 K/mcL (0.0-0.6); Eosinophils % 2.5 %; Hematocrit 30.7 % (37.5-50.1); Hemoglobin 9.8 g/dL (12.9-16.9); Immature Granulocytes % 0.9 % (0-4); Lymphocytes # 2.1 K/mcL (0.6-4.6); Lymphocytes % 24.1 %; Mean Corpuscular HGB Conc 31.9 g/dL (31.6-35.5); Mean Corpuscular Hemoglobin 30.2 pg (28.0-33.3); Mean Corpuscular Volume 94.5 fL (83.0-100.0); Mean Platelet Volume 10.1 fL (9.4-12.4); Monocytes # 0.8 K/mcL (0.0-1.3); Monocytes % 8.8 %; Neutrophils # 5.6 K/mcL (1.6-8.9); Platelet Count 222 K/mcL (140-400); Red Blood Count 3.25 M/mcL (4.19-5.50); Red Cell Distribution Width 13.2 % (11.5-14.5); Segmented Neutrophils % 63.4 %; White Blood Count 8.8 K/mcL (4.3-11.1)
[2019-06-09] MEDS: Insulin LISPRO 300 UNITS/3 ML VIAL SQ SCH ×2 (08:05→12:01)
[2019-06-09] MEDS: 0.9 % Sodium Chloride 1,000 ML IVC SCH (08:11)
[2019-06-09] MEDS: Aspirin Enteric Coated 81 MG Tablet PO SCH (08:11)
[2019-06-09 08:27] LABS: Calcium 9.9 mg/dL (8.6-10.3); Potassium 5.3 mEq/L (3.5-5.1)
[2019-06-09 11:28] VITALS: BP 121/64
--- NOTE | 2019-06-09 11:42 | Discharge Summary ---
- NOTES TO OUTPATIENT PROVIDER Notes to Outpatient Provider: Patient with a history of congestive heart failure on Lasix, spironolactone and losartan was hospitalized here with acute kidney injury. His creatinine on arrival was 4.39. He has been having urinary retention and was diagnosed with obstructive uropathy. Carter catheter was placed and urology was consulted. Patient was started on Flomax. His renal function has improved and urology recommends outpatient follow-up with Carter in place in 1-2 weeks for voiding trial. At this time his creatinine has come down to 2.38. He is clinically stable for discharge. Would recommend holding off on diuretics till he follows up with nephrology. 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 Swanson is a 63 year old male Patient with a history of congestive heart failure on Lasix, spironolactone and losartan was hospitalized here with acute kidney injury. His creatinine on arrival was 4.39. He has been having urinary retention and was diagnosed with obstructive uropathy. Carter catheter was placed and urology was consulted. Patient was started on Flomax. His renal function has improved and urology recommends outpatient follow-up with Carter in place in 1-2 weeks for voiding trial. At this time his creatinine has come down to 2.38. He is clinically stable for discharge. Would recommend holding off on diuretics till he follows up with nephrology. Discharge discussed with: patient, family - Time Spent with Patient Total time spent providing and/or coordinating discharge services: Time spent: Less than 30 minutes (25 min) - Discharge Medications Prescriptions: New Tamsulosin [Flomax] 0.4 mg PO DAILY #30 capsule Continued Clopidogrel [Plavix] 75 mg PO DAILY Carvedilol 12.5 mg PO BID Aspirin [[place] Aspirin EC] 81 mg PO DAILY glipiZIDE [Glipizide] 10 mg PO BID Discontinued Spironolactone [Aldactone] 25 mg PO DAILY Furosemide [Lasix] 40 mg PO BID Losartan Potassium 100 mg PO DAILY Home Medications: Aspirin [[place] Aspirin EC] 81 mg PO DAILY 06/07/19 [History] Carvedilol 12.5 mg PO BID 06/07/19 [History] Clopidogrel [Plavix] 75 mg PO DAILY 06/07/19 [History] glipiZIDE [Glipizide] 10 mg PO BID 06/07/19 [History] Tamsulosin [Flomax] 0.4 mg PO DAILY #30 capsule 06/09/19 [Rx] Allergies/Adverse Reactions: Allergy/AdvReac Type Severity Reaction Status Date / Time No Known Allergies Allergy Verified 06/07/19 12:54 Date of admission: 06/07/19 14:39 Primary care physician: Susan Carrion CNP Consults: 06/07/19 14:27 Consult to Nephrology [CONS] Stat Consulting Provider: [facility]/ANTHONY/LALITA/OZ Reason for Consult: renal failure, hyperkalemia Call Completed: Yes Consult to Urology [CONS] Stat Consulting Provider: [facility] [place] Reason for Consult: post obstructive uropathy Time Notified: 14:28 Call Completed: Yes Discharging clinician: Naya Christopher Anticipated date of discharge: 06/09/19 - Constitutional Vitals: Temp Pulse Resp BP Pulse Ox 97.6 F 58 16 121/64 97 06/09/19 11:26 06/09/19 11:26 06/09/19 11:26 06/09/19 11:26 06/09/19 11:26 General appearance: Present: A&O X 3, answers questions appropriately Exam: General: Patient is alert, no acute distress, oriented x 3 Respiratory: Good respiratory effort. Normal breath sounds. No wheezing or crackles. Cardiovascular: Regular rate and rhythm. s1 and s2 normal No clicks, rubs, gallops, or murmurs. No pedal edema Abdomen: Abdomen is soft, nontender. Bowel sounds are present Musculoskeletal: Spontaneously moving all extremities Skin: warm, dry, intact. Neuro: Alert oriented x 3 normal cranial nerves, no focal deficits - Patient Status Disposition: Home, Self-Care Condition: Fair Functional capacity at discharge: independent ambulation Overall status at discharge: patient is progressing back to baseline - Discharge Instructions Follow Up With: Susan Carrion CNP [Primary Care Provider] - (in 1-2 weeks) Maurice Tello DO [Partnered Physician] - (in 1-2 weeks) - Diet and Activity Activity: as per physical therapy Diet: diabetic diet, low salt diet, other (renal diet; Fluid restriction to 1.5L/day)
== END 2019-06-09 13:31 | disposition home or self-care (01) ==
LOC: 2ANU 12:32 → EMEROOARM 12:32 → SUATTDRO 14:39 → 2ANU 15:30
PROVIDERS: ADMIT Internal Medicine Nephrology; ATTEND Internal Medicine

== ENCOUNTER 2019-07-25 13:51 | Inpatient (IN) ==
[2019-07-25] MEDS ORDERED: 0.9 % Sodium Chloride 1,000 ML IVC ONE ×2 (14:08→14:35)
[2019-07-25] MEDS ORDERED: Isovue-370 500 ML BOTTLE IVP ONE ×2 (14:14→19:56)
[2019-07-25] MEDS ORDERED: Piperacillin/Tazobactam 3.375 GM in 0.9 % Sodium Chloride Mini Bag 100 ML IVPB ONE (14:15)
[2019-07-25 14:51] LABS: Basophils % 0.3 %; Eosinophils # 0.2 K/mcL (0.0-0.6); Eosinophils % 1.6 %; Hematocrit 29.2 % (37.5-50.1); Hemoglobin 9.4 g/dL (12.9-16.9); Immature Granulocytes % 0.6 % (0-4); Lymphocytes # 1.5 K/mcL (0.6-4.6); Mean Corpuscular HGB Conc 32.2 g/dL (31.6-35.5); Mean Corpuscular Hemoglobin 29.9 pg (28.0-33.3); Mean Platelet Volume 9.7 fL (9.4-12.4); Neutrophils # 10.9 K/mcL (1.6-8.9); Platelet Count 276 K/mcL (140-400); Red Blood Count 3.14 M/mcL (4.19-5.50); Red Cell Distribution Width 13.3 % (11.5-14.5); Segmented Neutrophils % 79.5 %; White Blood Count 13.7 K/mcL (4.3-11.1)
[2019-07-25 14:58] LABS: INR 1.2; Prothrombin Time 13.2 Seconds (9.4-12.1)
[2019-07-25 15:01] LABS: Activated Partial Thrombo Time 32.5 Seconds (26.0-36.0)
[2019-07-25 15:07] LABS: Troponin I 0.06 ng/mL (< 0.04)
--- NOTE | 2019-07-25 15:09 | Emergency Department Note ---
Disposition Clinical Impression: Open fracture, Foot abscess Disposition: Admitted As Inpatient Condition: Good Referrals: Jessenia Self MD [Primary Care Provider] - Forms: ED Satisfaction Letter Time of Disposition: 17:32 General Adult HPI - General Chief complaint: ED Extremity Problem,Nontraumatic Stated complaint: Left foot wound Time Seen by Provider: 07/25/19 14:01 Source: patient Mode of arrival: private vehicle Limitations: no limitations Nursing Notes Reviewed: Yes Vital Signs Reviewed: Yes - History of Present Illness HPI Narrative: 64-year-old male with a past medical history of diabetes, CAD, carotid stenting, but is a current every day smoker complains of left third toe pain that is been ongoing for the last 2 months. He reports that he initially had what looked to be an infection and he was placed on antibiotics and he states that he got somewhat better, then his toenail fell off, and then his noted that his toe looked black this morning so she brought him for evaluation. Patient notes sig nificant pain to the digit, states that it is sharp pain. He states that he cannot really move his foot without any pain. Pain Scale: 10 - Related Data Home Medications Medication Instructions Recorded Confirmed Aspirin [[place] Aspirin EC] 81 mg PO DAILY 06/07/19 07/25/19 Carvedilol 12.5 mg PO BID 06/07/19 07/25/19 Clopidogrel [Plavix] 75 mg PO DAILY 06/07/19 07/25/19 glipiZIDE [Glipizide] 10 mg PO BID 06/07/19 07/25/19 Allopurinol [Zyloprim 100 MG] 100 mg PO DAILY 07/25/19 07/25/19 Cholecalciferol (Vitamin D3) 50,000 unit PO DAILY 07/25/19 07/25/19 [Vitamin D] Furosemide [Lasix] 40 mg PO BID 07/25/19 07/25/19 Omeprazole [PriLOSEC] 20 mg PO DAILY 07/25/19 07/25/19 Allergies Allergy/AdvReac Type Severity Reaction Status Date / Time No Known Allergies Allergy Verified 06/21/19 08:20 Review of Systems: In addition to that documented in the HPI above, the additional ROS was obtained: Constitutional: Denies fevers or chills Eyes: Denies vision changes ENMT: Denies sore throat CV: Denies chest pain Resp: Denies SOB GI: Denies vomiting or diarrhea : Denies painful urination MSK: Denies recent trauma Skin: Denies new rashes Neuro: Denies new numbness or tingling or weakness, even when asked specifically if he has neuropathy Endocrine: Denies unexpected weight loss Heme: Denies bleeding disorders Past Medical History - Past Medical History Attestation: Yes The following information was validated with the patient. Medical history: Reports: CVA, diabetes, hyperlipidemia, hypertension Surgical history: Reports: appendectomy Psychiatric history: Reports: no psych history - Social History Smoking Status: Current every day smoker Smokeless Tobacco Status: No Alcohol use: Reports: none Drug use: Reports: none Physical Exam General: No acute distress. Well developed, well nourished. Head: atraumatic, normocephalic. ENT: No conjunctival injection, no scleral icterus. PERRLA. EOMI. Oropharynx non- erythematous. mucous membranes moist. Neuro: No focal deficits, no speech deficit, no facial droop, mentating well. BUE/BLE Str 5/5. Pulm: Lungs CTAB A/P. No wheezes, rales, ronchi. Cardio: RRR no m/r/g. Chest not tender to palpation. Abd: Soft, non-distended. Normoactive bowel sounds. Non-tender to palpation. No guarding. Non rigid. Extremities: Radial pulses 2+ chinmay, no palpable pulses in chinmay LE but lower extremities are warm and almita appropriately. Left third toe is purple, has a laceration across the anterior aspect of the toe, and there is a strong odor associated with the toe. He has significant tenderness to palpation. Skin: Other than noted above, warm, dry, intact. No rashes. Psych: Appropriate mood and affect. Answers questions appropriately. Cooperative with exam. - General Limitations: no limitations General appearance: alert, in no apparent distress Course - Consultations Consultation #1: Spoke with Dr. Lopez from podiatry who requested the last known meal of the patient and requested admission to the hospitalist. Will obtain last meal and admit. Time: 17:07 Vital Signs Temperature 98.6 F 07/25/19 13:54 Pulse Rate 54 07/25/19 13:54 Respiratory Rate 16 07/25/19 13:54 Blood Pressure 73/38 07/25/19 13:54 O2 Sat by Pulse Oximetry 99 07/25/19 13:54 Temperature 98.6 F 07/25/19 13:54 Pulse Rate 71 07/25/19 16:18 Respiratory Rate 10 07/25/19 16:18 Blood Pressure 114/53 07/25/19 16:18 O2 Sat by Pulse Oximetry 96 07/25/19 16:18 Oxygen Delivery Oxygen Delivery Room Air Medical Decision Making - MDM Narrative Medical decision making narrative: 64-year-old male with a past medical history of diabetes that presents for pain, swelling, gangrenous appearance of left third toe. We will obtain CT of his left foot, we will administer fluids, we will admit with podiatry consult. 1513: Troponin is elevated at 0.06, however chart review reveals that he has had elevated troponins in the past. Patient is chest pain-free, I believe the elevated troponin is secondary to his renal disease. We will cover the patient with an aspirin. 1732: Pt CT of foot showed abscess with gas in the third left toe with open fracture. Pt was covered with antibiotics including clarithromycin, vancomycin, and zosyn. Podiatry was called, details of the consult are in the course notes. They requested that we keep the patient NPO. Pt was admitted to the hospitalist, Dr Licea, who agreed to accept the patient to his service. Results of the workup including any imaging and/or labwork was shared with the patient at bedside. Patient was given an opportunity to ask questions at bedside and all of their concerns were addressed. Patient verbalized understanding and agreement with plan of care. Pt remained stable while in the department. - Medical Records Medical records reviewed: Yes I reviewed the patient's medical records. - Lab Data Lab results reviewed: Yes I reviewed the patient's lab results. Result diagrams: 07/25/19 14:28 07/25/19 14:28 Lab Results 07/25/19 07/25/19 07/25/19 Range/Units 14:28 14:28 14:28 WBC 13.7 H (4.3-11.1) K/mcL RBC 3.14 L (4.19-5.50) M/mcL Hgb 9.4 L (12.9-16.9) g/dL Hct 29.2 L (37.5-50.1) % MCV 93.0 (83.0-100.0) fL MCH 29.9 (28.0-33.3) pg MCHC 32.2 (31.6-35.5) g/dL RDW 13.3 (11.5-14.5) % Plt Count 276 (140-400) K/mcL MPV 9.7 (9.4-12.4) fL Immature Gran % 0.6 (0-4) % Seg Neutrophils % 79.5 % Lymphocytes % 11.0 % Monocytes % 7.0 % Eosinophils % 1.6 % Basophils % 0.3 % Neutrophils # 10.9 H (1.6-8.9) K/mcL Lymphocytes # 1.5 (0.6-4.6) K/mcL Monocytes # 1.0 (0.0-1.3) K/mcL Eosinophils # 0.2 (0.0-0.6) K/mcL Basophils # 0.0 (0.0-0.2) K/mcL ESR (0-10) mm/hr PT 13.2 H (9.4-12.1) Seconds INR 1.2 APTT 32.5 (26.0-36.0) Seconds VBG pH (7.32-7.42) pH Units VBG pCO2 (41-51) mmHg VBG pO2 (25-50) mmHg VBG HCO3 (21-27) mEq/L Sodium 135 L (136-145) mEq/L Potassium 4.0 (3.5-5.1) mEq/L Chloride 98 (98-107) mEq/L Carbon Dioxide 27 (23-29) mEq/L BUN 26 H (8-23) mg/dL Creatinine 1.92 H (0.70-1.30) mg/dL Est GFR ( Amer) 43 L (> 60) Est GFR (Non-Af Amer) 36 L (> 60) BUN/Creatinine Ratio 14 (6-26) Glucose 133 H (70-105) mg/dL Calculated Osmolality 287 (280-300) Calcium 9.6 (8.6-10.3) mg/dL Phosphorus 3.6 (2.7-4.5) mg/dL Magnesium 2.1 (1.6-2.6) mg/dL Total Bilirubin 0.5 (0.3-1.0) mg/dL Direct Bilirubin 0.1 (0.0-0.2) mg/dL Indirect Bilirubin 0.4 (0.0-1.2) mg/dL AST 12 L (13-39) Units/L ALT 11 (7-52) Units/L Alkaline Phosphatase 87 (34-104) Units/L Troponin I 0.06 H* (< 0.04) ng/mL C-Reactive Protein 90 H (Less than 10) mg/L Serum Total Protein 7.0 (6.4-8.9) g/dL Albumin 3.9 (3.5-5.7) g/dL Globulin 3.1 (2.4-3.5) g/dL Albumin/Globulin Ratio 1.3 (1.1-2.2) Beta-Hydroxybutyric Acd (0.02-0.27) mmol/L Specimen Rejected 07/25/19 07/25/19 07/25/19 Range/Units 14:28 15:31 15:43 WBC (4.3-11.1) K/mcL RBC (4.19-5.50) M/mcL Hgb (12.9-16.9) g/dL Hct (37.5-50.1) % MCV (83.0-100.0) fL MCH (28.0-33.3) pg MCHC (31.6-35.5) g/dL RDW (11.5-14.5) % Plt Count (140-400) K/mcL MPV (9.4-12.4) fL Immature Gran % (0-4) % Seg Neutrophils % % Lymphocytes % % Monocytes % % Eosinophils % % Basophils % % Neutrophils # (1.6-8.9) K/mcL Lymphocytes # (0.6-4.6) K/mcL Monocytes # (0.0-1.3) K/mcL Eosinophils # (0.0-0.6) K/mcL Basophils # (0.0-0.2) K/mcL ESR 112 H (0-10) mm/hr PT (9.4-12.1) Seconds INR APTT (26.0-36.0) Seconds VBG pH 7.37 (7.32-7.42) pH Units VBG pCO2 48 (41-51) mmHg VBG pO2 57 H (25-50) mmHg VBG HCO3 27 (21-27) mEq/L Sodium (136-145) mEq/L Potassium (3.5-5.1) mEq/L Chloride (98-107) mEq/L Carbon Dioxide (23-29) mEq/L BUN (8-23) mg/dL Creatinine (0.70-1.30) mg/dL Est GFR ( Amer) (> 60) Est GFR (Non-Af Amer) (> 60) BUN/Creatinine Ratio (6-26) Glucose (70-105) mg/dL Calculated Osmolality (280-300) Calcium (8.6-10.3) mg/dL Phosphorus (2.7-4.5) mg/dL Magnesium (1.6-2.6) mg/dL Total Bilirubin (0.3-1.0) mg/dL Direct Bilirubin (0.0-0.2) mg/dL Indirect Bilirubin (0.0-1.2) mg/dL AST (13-39) Units/L ALT (7-52) Units/L Alkaline Phosphatase (34-104) Units/L Troponin I (< 0.04) ng/mL C-Reactive Protein (Less than 10) mg/L Serum Total Protein (6.4-8.9) g/dL Albumin (3.5-5.7) g/dL Globulin (2.4-3.5) g/dL Albumin/Globulin Ratio (1.1-2.2) Beta-Hydroxybutyric Acd 0.28 H (0.02-0.27) mmol/L Specimen Rejected 07/25/19 Range/Units 16:22 WBC (4.3-11.1) K/mcL RBC (4.19-5.50) M/mcL Hgb (12.9-16.9) g/dL Hct (37.5-50.1) % MCV (83.0-100.0) fL MCH (28.0-33.3) pg MCHC (31.6-35.5) g/dL RDW (11.5-14.5) % Plt Count (140-400) K/mcL MPV (9.4-12.4) fL Immature Gran % (0-4) % Seg Neutrophils % % Lymphocytes % % Monocytes % % Eosinophils % % Basophils % % Neutrophils # (1.6-8.9) K/mcL Lymphocytes # (0.6-4.6) K/mcL Monocytes # (0.0-1.3) K/mcL Eosinophils # (0.0-0.6) K/mcL Basophils # (0.0-0.2) K/mcL ESR (0-10) mm/hr PT (9.4-12.1) Seconds INR APTT (26.0-36.0) Seconds VBG pH (7.32-7.42) pH Units VBG pCO2 (41-51) mmHg VBG pO2 (25-50) mmHg VBG HCO3 (21-27) mEq/L Sodium (136-145) mEq/L Potassium (3.5-5.1) mEq/L Chloride (98-107) mEq/L Carbon Dioxide (23-29) mEq/L BUN (8-23) mg/dL Creatinine (0.70-1.30) mg/dL Est GFR ( Amer) (> 60) Est GFR (Non-Af Amer) (> 60) BUN/Creatinine Ratio (6-26) Glucose (70-105) mg/dL Calculated Osmolality (280-300) Calcium (8.6-10.3) mg/dL Phosphorus (2.7-4.5) mg/dL Magnesium (1.6-2.6) mg/dL Total Bilirubin (0.3-1.0) mg/dL Direct Bilirubin (0.0-0.2) mg/dL Indirect Bilirubin (0.0-1.2) mg/dL AST (13-39) Units/L ALT (7-52) Units/L Alkaline Phosphatase (34-104) Units/L Troponin I (< 0.04) ng/mL C-Reactive Protein (Less than 10) mg/L Serum Total Protein (6.4-8.9) g/dL Albumin (3.5-5.7) g/dL Globulin (2.4-3.5) g/dL Albumin/Globulin Ratio (1.1-2.2) Beta-Hydroxybutyric Acd (0.02-0.27) mmol/L Specimen Rejected Accident - Radiology Data Radiology results reviewed: Yes I reviewed the patient's radiology results. Foot CT 07/25/19 15:12 IMPRESSION: 1. Subacute fracture of the left toe distal phalanx with focus of gas which appears contiguous with the skin surface. 2. No formed fluid collection or abscess. 3. No radiopaque foreign body. D/ / 07/25/2019 16:19:08 Presley Sánchez MD / jesica Interpreting Provider: Presley Sánchez MD - EKG Data EKG #1 EKG attestation: Yes I reviewed and interpreted this EKG. EKG results narrative: Heart rate 63, rhythm sinus, axis normal. ER 245 and prolonged, QRS 1:30 and prolonged, QTC 434. Less than [address] depression noted in lead V5 and V6 with T wave inversion in lead V5 and V6, less than [address] elevation seen in lead V2. When compared with previous EKG dated 06/07/2019 the previous EKG shows an RSR pattern in V2 and V3 consistent with right bundle branch block that is not the same on current study.
[2019-07-25] MEDS ORDERED: Aspirin 325 MG TABLET PO ONE (15:13)
[2019-07-25] MEDS ORDERED: Clindamycin 900 MG/50 ML 900 MG/50 ML IV.SOLN IVPB ONE (15:18)
[2019-07-25 15:24] LABS: Albumin 3.9 g/dL (3.5-5.7); Albumin/Globulin Ratio 1.3 (1.1-2.2); Bilirubin,Direct 0.1 mg/dL (0.0-0.2); Bilirubin,Indirect 0.4 mg/dL (0.0-1.2); Bilirubin,Total 0.5 mg/dL (0.3-1.0); Calcium 9.6 mg/dL (8.6-10.3); Globulin 3.1 g/dL (2.4-3.5); Magnesium 2.1 mg/dL (1.6-2.6); Phosphorous 3.6 mg/dL (2.7-4.5)
[2019-07-25 15:46] LABS: VBG HCO3 27 mEq/L (21-27); VBG PCO2 48 mmHg (41-51); VBG PH 7.37 pH Units (7.32-7.42); VBG PO2 57 mmHg (25-50)
[2019-07-25] MEDS ORDERED: Tdap (Boostrix) Vaccine 0.5 ML SYRINGE IM ONE (16:20)
--- NOTE | 2019-07-25 16:32 | Emergency Department Note ---
Disposition Clinical Impression: Open fracture, Foot abscess Disposition: Admitted As Inpatient Condition: Good Referrals: Jessenia Self MD [Primary Care Provider] - Forms: ED Satisfaction Letter Time of Disposition: 16:32 General Adult HPI - General Chief complaint: ED Extremity Problem,Nontraumatic Stated complaint: Left foot wound Time Seen by Provider: 07/25/19 14:01 Source: patient Mode of arrival: private vehicle Limitations: no limitations - History of Present Illness Pain Scale: 10 - Related Data Home Medications Medication Instructions Recorded Confirmed Aspirin [[place] Aspirin EC] 81 mg PO DAILY 06/07/19 06/08/19 Carvedilol 12.5 mg PO BID 06/07/19 06/08/19 Clopidogrel [Plavix] 75 mg PO DAILY 06/07/19 06/08/19 glipiZIDE [Glipizide] 10 mg PO BID 06/07/19 06/08/19 Previous Rx's Medication Instructions Recorded Tamsulosin [Flomax] 0.4 mg PO DAILY #30 capsule 06/09/19 Allergies Allergy/AdvReac Type Severity Reaction Status Date / Time No Known Allergies Allergy Verified 06/21/19 08:20 Past Medical History - Past Medical History Medical history: Reports: CVA, diabetes, hyperlipidemia, hypertension Surgical history: Reports: appendectomy Psychiatric history: Reports: no psych history - Social History Smoking Status: Current every day smoker Smokeless Tobacco Status: No Alcohol use: Reports: none Drug use: Reports: none Physical Exam - General Limitations: no limitations General appearance: alert, in no apparent distress Course Vital Signs Temperature 98.6 F 07/25/19 13:54 Pulse Rate 54 07/25/19 13:54 Respiratory Rate 16 07/25/19 13:54 Blood Pressure 73/38 07/25/19 13:54 O2 Sat by Pulse Oximetry 99 07/25/19 13:54 Temperature 98.6 F 07/25/19 13:54 Pulse Rate 71 07/25/19 16:18 Respiratory Rate 10 07/25/19 16:18 Blood Pressure 114/53 07/25/19 16:18 O2 Sat by Pulse Oximetry 96 07/25/19 16:18 Oxygen Delivery Oxygen Delivery Room Air Medical Decision Making - Lab Data Result diagrams: 07/25/19 14:28 07/25/19 14:28 Lab Results 07/25/19 07/25/19 07/25/19 Range/Units 14:28 14:28 14:28 WBC 13.7 H (4.3-11.1) K/mcL RBC 3.14 L (4.19-5.50) M/mcL Hgb 9.4 L (12.9-16.9) g/dL Hct 29.2 L (37.5-50.1) % MCV 93.0 (83.0-100.0) fL MCH 29.9 (28.0-33.3) pg MCHC 32.2 (31.6-35.5) g/dL RDW 13.3 (11.5-14.5) % Plt Count 276 (140-400) K/mcL MPV 9.7 (9.4-12.4) fL Immature Gran % 0.6 (0-4) % Seg Neutrophils % 79.5 % Lymphocytes % 11.0 % Monocytes % 7.0 % Eosinophils % 1.6 % Basophils % 0.3 % Neutrophils # 10.9 H (1.6-8.9) K/mcL Lymphocytes # 1.5 (0.6-4.6) K/mcL Monocytes # 1.0 (0.0-1.3) K/mcL Eosinophils # 0.2 (0.0-0.6) K/mcL Basophils # 0.0 (0.0-0.2) K/mcL ESR (0-10) mm/hr PT 13.2 H (9.4-12.1) Seconds INR 1.2 APTT 32.5 (26.0-36.0) Seconds VBG pH (7.32-7.42) pH Units VBG pCO2 (41-51) mmHg VBG pO2 (25-50) mmHg VBG HCO3 (21-27) mEq/L Sodium 135 L (136-145) mEq/L Potassium 4.0 (3.5-5.1) mEq/L Chloride 98 (98-107) mEq/L Carbon Dioxide 27 (23-29) mEq/L BUN 26 H (8-23) mg/dL Creatinine 1.92 H (0.70-1.30) mg/dL Est GFR ( Amer) 43 L (> 60) Est GFR (Non-Af Amer) 36 L (> 60) BUN/Creatinine Ratio 14 (6-26) Glucose 133 H (70-105) mg/dL Calculated Osmolality 287 (280-300) Calcium 9.6 (8.6-10.3) mg/dL Phosphorus 3.6 (2.7-4.5) mg/dL Magnesium 2.1 (1.6-2.6) mg/dL Total Bilirubin 0.5 (0.3-1.0) mg/dL Direct Bilirubin 0.1 (0.0-0.2) mg/dL Indirect Bilirubin 0.4 (0.0-1.2) mg/dL AST 12 L (13-39) Units/L ALT 11 (7-52) Units/L Alkaline Phosphatase 87 (34-104) Units/L Troponin I 0.06 H* (< 0.04) ng/mL C-Reactive Protein 90 H (Less than 10) mg/L Serum Total Protein 7.0 (6.4-8.9) g/dL Albumin 3.9 (3.5-5.7) g/dL Globulin 3.1 (2.4-3.5) g/dL Albumin/Globulin Ratio 1.3 (1.1-2.2) Beta-Hydroxybutyric Acd (0.02-0.27) mmol/L Specimen Rejected 07/25/19 07/25/19 07/25/19 Range/Units 14:28 15:31 15:43 WBC (4.3-11.1) K/mcL RBC (4.19-5.50) M/mcL Hgb (12.9-16.9) g/dL Hct (37.5-50.1) % MCV (83.0-100.0) fL MCH (28.0-33.3) pg MCHC (31.6-35.5) g/dL RDW (11.5-14.5) % Plt Count (140-400) K/mcL MPV (9.4-12.4) fL Immature Gran % (0-4) % Seg Neutrophils % % Lymphocytes % % Monocytes % % Eosinophils % % Basophils % % Neutrophils # (1.6-8.9) K/mcL Lymphocytes # (0.6-4.6) K/mcL Monocytes # (0.0-1.3) K/mcL Eosinophils # (0.0-0.6) K/mcL Basophils # (0.0-0.2) K/mcL ESR 112 H (0-10) mm/hr PT (9.4-12.1) Seconds INR APTT (26.0-36.0) Seconds VBG pH 7.37 (7.32-7.42) pH Units VBG pCO2 48 (41-51) mmHg VBG pO2 57 H (25-50) mmHg VBG HCO3 27 (21-27) mEq/L Sodium (136-145) mEq/L Potassium (3.5-5.1) mEq/L Chloride (98-107) mEq/L Carbon Dioxide (23-29) mEq/L BUN (8-23) mg/dL Creatinine (0.70-1.30) mg/dL Est GFR ( Amer) (> 60) Est GFR (Non-Af Amer) (> 60) BUN/Creatinine Ratio (6-26) Glucose (70-105) mg/dL Calculated Osmolality (280-300) Calcium (8.6-10.3) mg/dL Phosphorus (2.7-4.5) mg/dL Magnesium (1.6-2.6) mg/dL Total Bilirubin (0.3-1.0) mg/dL Direct Bilirubin (0.0-0.2) mg/dL Indirect Bilirubin (0.0-1.2) mg/dL AST (13-39) Units/L ALT (7-52) Units/L Alkaline Phosphatase (34-104) Units/L Troponin I (< 0.04) ng/mL C-Reactive Protein (Less than 10) mg/L Serum Total Protein (6.4-8.9) g/dL Albumin (3.5-5.7) g/dL Globulin (2.4-3.5) g/dL Albumin/Globulin Ratio (1.1-2.2) Beta-Hydroxybutyric Acd 0.28 H (0.02-0.27) mmol/L Specimen Rejected 07/25/19 Range/Units 16:22 WBC (4.3-11.1) K/mcL RBC (4.19-5.50) M/mcL Hgb (12.9-16.9) g/dL Hct (37.5-50.1) % MCV (83.0-100.0) fL MCH (28.0-33.3) pg MCHC (31.6-35.5) g/dL RDW (11.5-14.5) % Plt Count (140-400) K/mcL MPV (9.4-12.4) fL Immature Gran % (0-4) % Seg Neutrophils % % Lymphocytes % % Monocytes % % Eosinophils % % Basophils % % Neutrophils # (1.6-8.9) K/mcL Lymphocytes # (0.6-4.6) K/mcL Monocytes # (0.0-1.3) K/mcL Eosinophils # (0.0-0.6) K/mcL Basophils # (0.0-0.2) K/mcL ESR (0-10) mm/hr PT (9.4-12.1) Seconds INR APTT (26.0-36.0) Seconds VBG pH (7.32-7.42) pH Units VBG pCO2 (41-51) mmHg VBG pO2 (25-50) mmHg VBG HCO3 (21-27) mEq/L Sodium (136-145) mEq/L Potassium (3.5-5.1) mEq/L Chloride (98-107) mEq/L Carbon Dioxide (23-29) mEq/L BUN (8-23) mg/dL Creatinine (0.70-1.30) mg/dL Est GFR ( Amer) (> 60) Est GFR (Non-Af Amer) (> 60) BUN/Creatinine Ratio (6-26) Glucose (70-105) mg/dL Calculated Osmolality (280-300) Calcium (8.6-10.3) mg/dL Phosphorus (2.7-4.5) mg/dL Magnesium (1.6-2.6) mg/dL Total Bilirubin (0.3-1.0) mg/dL Direct Bilirubin (0.0-0.2) mg/dL Indirect Bilirubin (0.0-1.2) mg/dL AST (13-39) Units/L ALT (7-52) Units/L Alkaline Phosphatase (34-104) Units/L Troponin I (< 0.04) ng/mL C-Reactive Protein (Less than 10) mg/L Serum Total Protein (6.4-8.9) g/dL Albumin (3.5-5.7) g/dL Globulin (2.4-3.5) g/dL Albumin/Globulin Ratio (1.1-2.2) Beta-Hydroxybutyric Acd (0.02-0.27) mmol/L Specimen Rejected Accident Attestation Statement - Attestation Attestation: I reviewed the residents documentation and agree with the residents assessment and plan of care. I have personally had face to face time with the patient. (Brief History, Brief Exam, and MDM) I personally supervised and was present for the hammond/critical portions of the following procedures completed by the resident: EKG 64 year old male presents to the ED with complaints of left foot wound and he is diabetic. Patinet state the wound was present a few days ago and it appears on CT scan there is a open fracture to the 3rd left toe with abscess formation and appears necrotic. WE have started the infectious workup and started vanc/zosyn and consulted podiatry. plan to admit to medicine
[2019-07-25] MEDS ORDERED: Acetaminophen 325 MG TABLET PO PRN (17:39)
[2019-07-25] MEDS ORDERED: Ondansetron 4 MG/2 ML VIAL IVP PRN ×2 (17:39→19:56)
[2019-07-25] MEDS ORDERED: Naloxone 0.4 MG/ML INJ IVP PRN ×2 (17:39→19:56)
[2019-07-25] MEDS ORDERED: *HR* OxyCODONE Immed Rel 5 MG TABLET PO PRN (17:39)
[2019-07-25] MEDS ORDERED: traMADol 50 MG TABLET PO PRN ×2 (17:39→19:56)
[2019-07-25] MEDS ORDERED: Ringers Solution, Lactated 1,000 ML IVC SCH (17:45)
--- NOTE | 2019-07-25 17:47 | Podiatry Consult Note ---
Date of Encounter: 07/25/19 Time of Encounter: 17:49 Assessment and Plan (1) Gas gangrene Current visit: Yes Status: Acute 1. Patient evaluated and treated. CT reviewed with shows evidence of soft tissue gas and pathologic fracture at the left 3rd toe. I discussed with the patient that gas gangrene can be a surgical emergency and I&D with possible amputation of the digit is warranted for infection source control so as to prevent rapid progression of the soft tissue infection. Patient agrees with this plan. Risks, benefits, and expected post operative course reviewed with the patient. Risks include but are not limited to: worsening infection, non healing wound, heart complications, loss of limb, loss of life, blood clots, nerve/tendon/vascular i njury, need for further surgery, numbness, swelling, chronic pain. Surgical consent signed by the patient. No guarantees were made regarding the outcome of the procedure. There is concern for vascular disease given his calcified vessels on CT scan and decreased pulses. Will order ABIs following the surgical procedure and will consult vascular surgery as needed. Patient is NPO before surgery. History of Present Illness Chief complaint: left foot infection HPI: Mr. Swanson is a 64 year old male presenting with a left 3rd toe infection. He reports that approximately 3 days ago his toenail fell off and the toe had a foul odor and discoloration. He reports mild pain. He denies any systemic signs of infection. CT scan showed evidence of gas gangrene at the left 3rd toe. Patient states that he has not eaten since last night. Past Med Surg Social Fam HX - Past Medical History Medical history: CVA, diabetes, hyperlipidemia, hypertension Psychiatric history: no psych history - Past Surgical History Surgical History: appendectomy Additional surgical history: neck surgery - Social History Smoking Status: Current every day smoker Smokeless Tobacco Status: No Alcohol use: none Drug use: none Medications and Allergies Aspirin [[place] Aspirin EC] 81 mg PO DAILY 06/07/19 [History] Carvedilol 12.5 mg PO BID 06/07/19 [History] Clopidogrel [Plavix] 75 mg PO DAILY 06/07/19 [History] glipiZIDE [Glipizide] 10 mg PO BID 06/07/19 [History] Allopurinol [Zyloprim 100 MG] 100 mg PO DAILY 07/25/19 [History] Cholecalciferol (Vitamin D3) [Vitamin D] 50,000 unit PO DAILY 07/25/19 [History] Furosemide [Lasix] 40 mg PO BID 07/25/19 [History] Omeprazole [PriLOSEC] 20 mg PO DAILY 07/25/19 [History] Allergy/AdvReac Type Severity Reaction Status Date / Time No Known Allergies Allergy Verified 06/21/19 08:20 All Systems Reviewed: The remainder of the systems were reviewed and are negative Physical Exam - Constitutional Vitals: Temp Pulse Resp BP Pulse Ox 98.6 F 71 10 114/53 96 07/25/19 13:54 07/25/19 16:18 07/25/19 16:18 07/25/19 16:18 07/25/19 16:18 Exam: Alert, oriented x3, no acute distress. Vascular: DP and PT non palpable. Capillary refill less than 3 seconds to all digits. Skin temperature cool to touch distally. Capillary refill delayed to digits. Dermatology: Left 3rd toe with evidence of ischemia to level of PIPJ. Ulcer noted dorsally with probe to bone. Mild purulent drainage. No streaking erythema noted. Musculoskeletal: Tenderness with palpation left 3rd toe. Muscle strength normal. Neuro: Sensations diminished to light touch bilateral lower extremity. Results - Labs Result Diagrams: 07/25/19 14:28 07/25/19 14:28 Labs: Abnormal lab results WBC 13.7 K/mcL (4.3-11.1) H 07/25/19 14:28 RBC 3.14 M/mcL (4.19-5.50) L 07/25/19 14:28 Hgb 9.4 g/dL (12.9-16.9) L 07/25/19 14:28 Hct 29.2 % (37.5-50.1) L 07/25/19 14:28 Neutrophils # 10.9 K/mcL (1.6-8.9) H 07/25/19 14:28 ESR 112 mm/hr (0-10) H 07/25/19 14:28 PT 13.2 Seconds (9.4-12.1) H 07/25/19 14:28 VBG pO2 57 mmHg (25-50) H 07/25/19 15:43 Sodium 135 mEq/L (136-145) L 07/25/19 14:28 BUN 26 mg/dL (8-23) H 07/25/19 14:28 Creatinine 1.92 mg/dL (0.70-1.30) H 07/25/19 14:28 Est GFR ( Amer) 43 (> 60) L 07/25/19 14:28 Est GFR (Non-Af Amer) 36 (> 60) L 07/25/19 14:28 Glucose 133 mg/dL (70-105) H 07/25/19 14:28 AST 12 Units/L (13-39) L 07/25/19 14:28 Troponin I 0.06 ng/mL (< 0.04) H* 07/25/19 14:28 C-Reactive Protein 90 mg/L (Less than 10) H 07/25/19 14:28 Beta-Hydroxybutyric Acd 0.28 mmol/L (0.02-0.27) H 07/25/19 15:31 H & H 07/25/19 Range/Units 14:28 Hgb 9.4 L (12.9-16.9) g/dL Hct 29.2 L (37.5-50.1) % All other labs normal. Consult Discharge Plan - Plan Referrals: Jessenia Self MD [Primary Care Provider] -
[2019-07-25] MEDS ORDERED: *HR* Heparin 5,000 UNIT/ML VIAL SQ SCH (18:00)
[2019-07-25] MEDS ORDERED: Cefepime HCl 1,000 MG in Water for inj. (sterile) 10 ML IVP SCH (18:00)
[2019-07-25] MEDS ORDERED: Cefepime HCl 1,000 MG in Water for inj. (sterile) 10 ML IVPB SCH (18:00)
--- NOTE | 2019-07-25 18:10 | Internal Med History&Physical ---
Date of Encounter: 07/25/19 Time of Encounter: 17:30 Internal Medicine - H&P: HPI Chief complaint: Left 3rd toe pain and cyanosis Admitted From: Emergency Dept Plans for Post Hospital Care: Home History of present illness: Mr. Swanson is a 64 year old male with a history of CHF, CKD which was attributed to obstructive uropathy, diabetes CAD hypertension and chronic tobacco use who presented to the ED with complaints of left 3rd toe pain and cyanosis. According to the patient's kvng she can be reachd at [phone] the patient had a toenail infection 3 weeks ago and at the toenail fell off. She stated that about 3 days ago she noticed his left 3rd toe discoloration. Patient does admits to pain. He also admits to symptoms of intermittent claudication over the years but admits to current chronic tobacco use he denies ever being evaluated for peripheral artery disease. He could not recall also he has last [id number] he is only on a antidiabetic medication. He denies any prior history of diabetic foot ulcers. According to his medical records he was recently hospitalized in May 2019 for obstructive uropathy. Patient was evaluated by the podiatry team and is scheduled for emergent surgical interv ention. Past Med Surg Social Fam HX - Past Medical History Medical history: CVA, diabetes, hyperlipidemia, hypertension Psychiatric history: no psych history - Past Surgical History Surgical History: appendectomy Additional surgical history: neck surgery - Social History Smoking Status: Current every day smoker Smokeless Tobacco Status: No Alcohol use: none Drug use: none Internal Medicine - H&P: Meds Aspirin [[place] Aspirin EC] 81 mg PO DAILY 06/07/19 [History] Carvedilol 12.5 mg PO BID 06/07/19 [History] Clopidogrel [Plavix] 75 mg PO DAILY 06/07/19 [History] glipiZIDE [Glipizide] 10 mg PO BID 06/07/19 [History] Allopurinol [Zyloprim 100 MG] 100 mg PO DAILY 07/25/19 [History] Cholecalciferol (Vitamin D3) [Vitamin D] 50,000 unit PO DAILY 07/25/19 [History] Furosemide [Lasix] 40 mg PO BID 07/25/19 [History] Omeprazole [PriLOSEC] 20 mg PO DAILY 07/25/19 [History] Allergy/AdvReac Type Severity Reaction Status Date / Time No Known Allergies Allergy Verified 06/21/19 08:20 All Systems PM: A 10-system review of systems was performed and is negative for pertinent findings except as documented above in the HPI. Review of systems: GENERAL: Denies fever, chills, fatigue or night sweats. DERMATOLOGIC: Denies itch, rash or lesions HEENT: Denies headache, blurriness, diplopia or decreased visual acuity, ear pain, tinnitus, rhinorrhea, sinus tenderness or sore throat RESPIRATORY: Denies SOB, cough, hemoptysis or pleuritic chest pain CARDIOVASCULAR: Denies chest pain, LE edema, palpitation or syncope GASTRO INTESTINAL: Denies cramps, nausea/vomiting, diarrhea or constipation, melena MUSCULOSKELATAL: Denies muscle pain/weakness, joint tenderness/pain or swelling but reports left foot pain PSYCH: Denies worsening anxiety, or depression NEURO: Denies vertigo, dizziness, or ataxia GENITURINARY: Denies dysuria, nocturia or urinary incontinence - Constitutional Vitals: Temp Pulse Resp BP Pulse Ox 98.6 F 71 10 114/53 96 07/25/19 13:54 07/25/19 16:18 07/25/19 16:18 07/25/19 16:18 07/25/19 16:18 Exam: GENERAL: NAD, A&O x3, pleasant and conversant, sister, at his bedside SKIN: No skin lesions or rashes, non-jaundiced except for his third left toe which appears gangrenous and necrotic EYES: EOMI, PERRLA, no sclera icterus HENT: Head atraumatic, no facial asymmetry, frontal and maxillary sinus non- tender, normal hearing, oropharynx and mucosa moist and without any exudates NECK: No cervical lymphadenopathy, trachea midline, thyroid is palpable does not appear enlarged LUNGS: vesicular breath sounds, clear to auscultation, no wheeze, rhonchi, rales or crackles. Non labored respirations HEART: Normal rate and rhythm, no murmurs or rubs ABDOMEN: soft, non-tender, non-distended, bowel sounds x 4 normoactive EXTRMITIES: LE asymmetry noted with the left third toe gangrene and necrotic black eschar. No LE edema, trace pedal pulses and radial pulses 2 + and equal bilaterally NEURO: Speech and comprehension appears intact. PSYCH: Cooperative, non- anxious or irritable, mood and affect is appropriate Internal Med - H&P Results - Labs CBC & Chem 7: 07/25/19 14:28 07/25/19 14:28 Labs: Short CBC 07/25/19 Range/Units 14:28 WBC 13.7 H (4.3-11.1) K/mcL Hgb 9.4 L (12.9-16.9) g/dL Hct 29.2 L (37.5-50.1) % Plt Count 276 (140-400) K/mcL Neutrophils # 10.9 H (1.6-8.9) K/mcL BMP 07/25/19 14:28 Sodium 135 L Potassium 4.0 Chloride 98 Carbon Dioxide 27 BUN 26 H Creatinine 1.92 H Glucose 133 H Calcium 9.6 Cardiac Enzymes 07/25/19 Range/Units 14:28 Troponin I 0.06 H* (< 0.04) ng/mL Liver Function 07/25/19 Range/Units 14:28 Total Bilirubin 0.5 (0.3-1.0) mg/dL Direct Bilirubin 0.1 (0.0-0.2) mg/dL AST 12 L (13-39) Units/L ALT 11 (7-52) Units/L Alkaline Phosphatase 87 (34-104) Units/L Albumin 3.9 (3.5-5.7) g/dL - ABG Interpretation ABG results: 07/25/19 15:43 VBG pH 7.37 VBG pCO2 48 VBG pO2 57 H VBG HCO3 27 - Impressions ITS Impressions Foot CT 07/25/19 15:12 IMPRESSION: 1. Subacute fracture of the left toe distal phalanx with focus of gas which appears contiguous with the skin surface. 2. No formed fluid collection or abscess. 3. No radiopaque foreign body. D/ / 07/25/2019 16:19:08 Presley Sánchez MD / jesica Interpreting Provider: Presley Sánchez MD - Assessment and Plan (1) Open fracture Current Visit: Yes Status: Acute Assessment and plan: CT of the left foot reveals subacute fracture of the left toe distal to the phalanx with focus of gas. He was evaluated by podiatry team we appreciate their input is planned for OR today (2) Gas gangrene Current Visit: Yes Status: Acute Assessment and plan: CT of the left foot reveals subacute fracture of the left toe distal to the phalanx with focus of gas. He was evaluated by podiatry team we appreciate their input is planned for OR today, on examination appears to have necrotic le ft 3rd toe with black eschar. Suspect underlying PAD given his tobacco use EDUARDO ordered for tomorrow (3) Troponin I above reference range Current Visit: Yes Status: Acute Assessment and plan: Troponin 0.08 in the setting of CKD, denies chest pain we will trend (4) CKD (chronic kidney disease) Current Visit: Yes Status: Acute Assessment and plan: He was hospitalized in May 2019 for acute renal failure attributed to obstructive uropathy serum creatinine today Is much improved compared to May 2019 we will trend, check PSA, monitor I's and O's equally denies any urinary difficulties Qualifiers: Chronic kidney disease stage: unspecified stage Qualified Code(s): N18.9 - Chronic kidney disease, unspecified (5) Diabetes mellitus Current Visit: Yes Status: Acute Assessment and plan: Check A1c, insulin per protocol. Discussed glycemic control for proper wound healing Qualifiers: Diabetes mellitus type: type 2 Diabetes mellitus long term care social worker insulin use: without long term care social worker use Diabetes mellitus complication status: with hypoglycemia Diabetes mellitus complication detail: without coma Qualified Code(s): E11.649 - Type 2 diabetes mellitus with hypoglycemia without coma (6) DVT prophylaxis Current Visit: Yes Status: Acute Assessment and plan: Heparin subcutaneous (7) Tobacco dependency Current Visit: Yes Status: Acute Assessment and plan: Encouraged tobacco cessation will order nicotine patch and gum suspect PAD - Time Spent With Patient Total time spent is greater than 50% in coordination of care (as documented) at patient's floor/unit and/or counseling patient:
--- NOTE | 2019-07-25 18:16 | Anesthesia Evaluation PreOp ---
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: CVA (RESIDUAL MILD RLE WEAKNESS) Other Medical History: Renal (CKD3), Diabetes Type II, Other (ANEMIA) Anesthesia History: No Prior Anesthetic Complications, Past Anesthesia Alcohol Use: none Drug use: none Medications and Allergies Aspirin [[place] Aspirin EC] 81 mg PO DAILY 06/07/19 [History] Carvedilol 12.5 mg PO BID 06/07/19 [History] Clopidogrel [Plavix] 75 mg PO DAILY 06/07/19 [History] glipiZIDE [Glipizide] 10 mg PO BID 06/07/19 [History] Allopurinol [Zyloprim 100 MG] 100 mg PO DAILY 07/25/19 [History] Cholecalciferol (Vitamin D3) [Vitamin D] 50,000 unit PO DAILY 07/25/19 [History] Furosemide [Lasix] 40 mg PO BID 07/25/19 [History] Omeprazole [PriLOSEC] 20 mg PO DAILY 07/25/19 [History] Allergy/AdvReac Type Severity Reaction Status Date / Time No Known Allergies Allergy Verified 06/21/19 08:20 - Meds/Allergy Pre-op Review Medications Reviewed: Yes Allergies Reviewed: Yes Beta Blockers on Current Med List: No Anesthesia Results - Labs 07/25/19 14:28 07/25/19 14:28 Laboratory Tests 07/25/19 14:28 Calcium 9.6 Laboratory Tests 07/25/19 14:28 Troponin I 0.06 H* Anesthesia Exam Vital Signs/O2 Sat/Glucose, Most Recent Temp Pulse Resp BP Pulse Ox 98.6 F 71 10 114/53 96 07/25/19 13:54 07/25/19 16:18 07/25/19 16:18 07/25/19 16:18 07/25/19 16:18 Blood Glucose* 138 Weight: 82 KG - BMI 28 - HEENT Mallampati: I Teeth: Edentulous - Cardiac Rhythm: Irregular - Pulmonary Breath Sounds: bilateral Clear Anesthesia Assess/Plan ASA Score: 4, E Anesthetic Plan: MAC Monitoring Plan: Standard Monitors Recovery Plan: PACU
[2019-07-25] MEDS ORDERED: Lidocaine -MPF 2% 2 ML VIAL ONE (18:24)
[2019-07-25] MEDS ORDERED: *HR* Propofol 200 MG/20 ML VIAL IVP ONE (18:25)
[2019-07-25] MEDS ORDERED: Propofol 500 MG/50 ML INFUS..BTL ONE (18:25)
[2019-07-25] MEDS ORDERED: Vancomycin 500 MG in 0.9 % Sodium Chloride Mini Bag 100 ML IVPB ONE (18:30)
[2019-07-25] MEDS ORDERED: *HR* PHENYLEPHRINE 1,000 MCG/10 ML SYRINGE IVP ONE (18:34)
[2019-07-25] MEDS ORDERED: D5% in Water 1,000 ML IVC PRN ×2 (19:02→19:56)
[2019-07-25] MEDS ORDERED: *HR* Dextrose 50 % in Water (Syg) 50 ML SYRINGE IVP PRN ×2 (19:02→19:56)
[2019-07-25] MEDS ORDERED: Dextrose Gel 15 GM/37.5 ML TUBE PO PRN ×4 (19:02→19:56)
[2019-07-25] MEDS ORDERED: Nicotine 2 MG GUM BC PRN ×2 (19:04→19:56)
--- NOTE | 2019-07-25 19:55 | Orthopedic Operative Note ---
Date of procedure: 07/25/19 Pre-op diagnosis: left 3rd toe wet gangrene, gas gangrene, osteomyelitis Post-op diagnosis: same Procedure: 07/25/19 19:43 1. Incision and drainage below fascia left 1st toe 2. Left 3rd toe amputation Implants: None Complications: None Anesthesia: MAC, local Surgeon: Giovany Escobar Was there an assistant auto center manager present: No Estimated blood loss (cc): 1 Tourniquet Time (Minutes): 0 Specimen: left 3rd toe to pathology, micro culture Condition: stable Disposition: floor Procedure in Detail: 07/25/19 19:44 INDICATIONS AND CONSENT Roscoe Swanson is a 64 year old male who initially presented to the ED with a left 3rd toe wound infection that started when the nail was damaged and fell off. CT scan of the foot showed evidence of gas gangrene and possible osteomyelitis with pathologic fracture of the left 3rd toe. Clinically, there was evidence of wet gangrene. Incision and drainage with possible amputation of the toe was warranted for infection source control. The patient elected to proceed with surgery. We discussed the above procedures in detail. This included a discussion on the indications, contraindications, and possible complications including but not limited to: infection, non-healing wound, pain, swelling, bleeding, blood clots, heart complications, nerve injury, tendon injury, vascular injury, loss of limb, loss of life, and need for further surgery. We also reviewed the expected post operative course, including a discussion on the partial-weightbearing status after this procedure. He related understanding of our discussion regarding this surgery. All questions were answered to his satisfaction, and a proper written informed consent was obtained, signed, and placed in the chart. No guarantees were given, stated or implied, as to the outc ome of this procedure. PROCEDURE IN DETAIL The patient was seen in the pre-operative holding area by Anesthesia, where he was consented for MAC with local block. The patient was then brought back to the operative suite and placed on the operating room table in the supine position. A sign-in was performed. MAC was then initiated per Anesthesia protocol. No tourniquet was placed due to concern for peripheral vascular disease. Next, the left lower leg was scrubbed, prepped, and draped in the usual aseptic manner. A [place] Time-Out was performed, and all parties in the room agreed. A total o f 5 mL of 1% lidocaine plain was injected to the left third ray in a digital block distribution. A 15 blade and rongeur were used to perform an incision and drainage to the distal left 3rd toe to the level of bone. The bone at the middle and proximal phalanx appeared necrotic and there was purulent drainage from the wound. It was decided that amputation was appropriate for infection source control as the digit was not salvageable. A fishmouth incision was made distal to the level of metatarsophalangeal joint. The toe was then disarticulated using a 15 blade at the metatarsophalangeal joint. The toe was sent to pathology. All non-viable soft tissue was sharply excised using a rongeur and 15 blade. The 3rd metatarsal bone and surrounding soft tissue appeared viable and healthy. The distal right third toe was sent to pathology. The wound was irrigated with 3 liters of normal saline using cysto tubing. Of note, there was minimal bleeding at the surgical site during the procedure. Two retention sutures were placed using 3-0 Nylon. Capillary refill to the remaining toes was delayed. The wound was then dressed with Adaptic, dry sterile dressing using Kerlix fluffs, and no MIS wrap. A sign-out was performed. The patient tolerated anesthesia and the procedure well, and was transferred to PAC-U with vital signs stable. Needle and sponge counts were correct X 2 at the end of the case. Dr. Giovany Escobar was present, scrubbed, and participated in all vital aspects of the procedure. After a brief stay in PAC-U, the patient will be admitted back to the floor for continued monitoring. We will follow up on pathology results and will work closely with ID regarding antibiotic recommendations. Will consider repeat incision and drainage with delayed primary closure pending soft tissue viability over the next 24-48 hours. We will order non-invasive vascular studies as there is concern for peripheral arterial disease. He is aware that he is at risk for loss of limb and that his procedure was to help prevent further spread of infection.
[2019-07-25] MEDS: Ringers Solution, Lactated 1,000 ML IVC SCH (20:50)
[2019-07-25] MEDS: Insulin DETEMIR 100 UNIT/ML X5UNITS SQ SCH (20:50)
[2019-07-25] MEDS ORDERED: Insulin DETEMIR 100 UNIT/ML X5UNITS SQ SCH (21:00)
[2019-07-25 22:22] LABS: Estimated Average Glucose 163 mg/dl
--- NOTE | 2019-07-25 22:25 | Anesthesia Evaluation Post Op ---
Date of Encounter: 07/25/19 Time of Encounter: 19:15 - Discharge PostOp Status: Transfer Patient to floor (Patient's vital signs have been reviewed. Patient is stable postoperatively and has adequately recovered from anesthesia. Patient is determined to have stable airway patency and respiratory function including respiratory rate and oxygen saturation. Patient has a stable heart rate, blood pressure and adequate hydration. Patients mental status is acceptable. Patients temperature is appropriate. Pain and nausea are adequately controlled)
[2019-07-26 04:57] LABS: Basophils % 0.2 %; Eosinophils # 0.2 K/mcL (0.0-0.6); Eosinophils % 1.8 %; Hematocrit 25.2 % (37.5-50.1); Hemoglobin 8.1 g/dL (12.9-16.9); Immature Granulocytes % 0.6 % (0-4); Lymphocytes # 1.1 K/mcL (0.6-4.6); Lymphocytes % 8.6 %; Mean Corpuscular HGB Conc 32.1 g/dL (31.6-35.5); Mean Corpuscular Hemoglobin 29.6 pg (28.0-33.3); Mean Platelet Volume 10.2 fL (9.4-12.4); Monocytes # 0.9 K/mcL (0.0-1.3); Monocytes % 7.3 %; Neutrophils # 10.2 K/mcL (1.6-8.9); Platelet Count 248 K/mcL (140-400); Red Blood Count 2.74 M/mcL (4.19-5.50); Red Cell Distribution Width 13.4 % (11.5-14.5); Segmented Neutrophils % 81.5 %; White Blood Count 12.5 K/mcL (4.3-11.1)
[2019-07-26 05:17] LABS: Calcium 8.7 mg/dL (8.6-10.3); Magnesium 1.9 mg/dL (1.6-2.6); Potassium 3.8 mEq/L (3.5-5.1)
[2019-07-26 05:36] LABS: Folate 11.6 ng/mL (3.0-16.0)
[2019-07-26] MEDS: *HR* Heparin 5,000 UNIT/ML VIAL SQ SCH ×2 (05:48→17:11)
[2019-07-26] MEDS: Ringers Solution, Lactated 1,000 ML IVC SCH ×2 (05:58→15:57)
[2019-07-26] MEDS: Nicotine 21 MG PATCH.TD24 TD SCH (07:59)
[2019-07-26] MEDS ORDERED: Insulin LISPRO 300 UNITS/3 ML VIAL SQ SCH (08:00)
[2019-07-26] MEDS: Insulin LISPRO 300 UNITS/3 ML VIAL SQ SCH ×3 (08:28→17:05)
[2019-07-26] MEDS ORDERED: Iron Sucrose Complex 250 MG in 0.9 % Sodium Chloride 250 ML IVPB SCH (09:00)
[2019-07-26] MEDS ORDERED: Nicotine 21 MG PATCH.TD24 TD SCH (09:00)
[2019-07-26] MEDS ORDERED: Furosemide 40 MG TABLET PO SCH ×2 (10:05→21:00)
[2019-07-26] MEDS: *HR* OxyCODONE Immed Rel 5 MG TABLET PO PRN (10:23)
[2019-07-26] MEDS: Furosemide 40 MG TABLET PO SCH ×2 (12:07→22:19)
[2019-07-26] MEDS: Cyanocobalamin (B-12) 1,000 MCG TABLET PO SCH (12:07)
[2019-07-26] MEDS: Piperacillin/Tazobactam 3.375 GM in 0.9 % Sodium Chloride Mini Bag 100 ML IVPB SCH ×2 (12:50→14:59)
--- NOTE | 2019-07-26 15:29 | Internal Med Progress Note ---
Hospitalist Progress Note - Encounter Date of Encounter: 07/26/19 Time of Encounter: 14:40 - Subjective Interval History: Mr Swanson is status post amputation of his third left toe. He is ankle-brachial index does reveal significant PAD. The in-house vascular surgeon was notified today of the finding from EDUARDO. He admits to pain in the right foot. GEN: Denies fever, chills or malaise HEENT: Denies headache blurriness, or dysphagia RESP: Denies SOB or cough CV: Denies chest pain or palpitations GI: Denies Nausea, vomiting, diarrhea or constipation Reviewed current in hospital medications with modifications see orders Reviewed Routine labs - Exam Vitals: Temp Pulse Resp BP Pulse Ox 98.4 F 66 16 93/54 95 07/26/19 11:14 07/26/19 11:14 07/26/19 11:14 07/26/19 12:18 07/26/19 11:14 Exam: GEN: NAD, although somewhat somnolent status post narcotic analgesia. at the bedside SKIN: [place] warm acyanotic not jaundice HEART: RRR, no murmurs LUNGS: CTA no wheeze or crackles, overall non labored ABDOMEN; Soft, non tender or distended, BS x 4 normactive EXT: No LE edema, Pedal pulses 1+, radial pulses 2+ PSYCH: Mood and affect is appropriate - Assessment and Plan (1) Open fracture Current Visit: Yes Status: Acute Assessment and Plan: Status post incision and drainage below the fascia of the left first toe, left third toe amputation. Stable postop day 1 Ongoing plan per podiatry team appreciate input, Of note- CT of the left foot reveals subacute fracture of the left toe distal to the phalanx with focus of gas. (2) Gas gangrene Current Visit: Yes Status: Acute Assessment and Plan: Status post incision and drainage below the fascia of the left first toe, left third toe amputation. Stable postop day 1, of note CT of the left foot reveals subacute fracture of the left toe distal to the phalanx with focus of gas. He was evaluated by podiatry team we appreciate their input is planned for OR today, on examination appears to have necrotic left 3rd toe with black eschar. Suspect underlying PAD given his tobacco use EDUARDO ordered for tomorrow (3) PAD (peripheral artery disease) Current Visit: Yes Status: Acute Assessment and Plan: preliminary report of the ankle brachial index as follows: RT EDUARDO 0.64 indicating moderate arterial disease by tech data table. LT EDUARDO 0.36 indicating severe arterial disease by tech data table. Vascular surgery consult pending notified vascular surgeon via OR nurse this afternoon (4) Troponin I above reference range Current Visit: Yes Status: Acute Assessment and Plan: Troponin 0.06 in the setting of CKD, denies chest pain trend 0.05-0.06. Patient will benefit from either ischemic workup inpatient after his been evaluated by vascular surgeon for his PAD given his critical limb ischemia on an outpatient (5) CKD (chronic kidney disease) Current Visit: Yes Status: Acute Assessment and Plan: He was hospitalized in May 2019 for acute renal failure attributed to obstructive uropathy serum creatinine today Is much improved compared to May 2019 we will trend, check PSA, monitor I's and O's equally denies any urinary difficulties, serum creatinine improved from 1.92-1.67, only 0.3 L out so far continue to monitor may be due to bladder scan if urine output does not improve by tomorrow (6) Diabetes mellitus Current Visit: Yes Status: Acute Assessment and Plan: A1c 7.3, insulin per protocol. Glycemic control indicated for proper wound healing, on basal and short acting insulin (7) DVT prophylaxis Current Visit: Yes Status: Acute Assessment and Plan: Heparin subcutaneous (8) Tobacco dependency Current Visit: Yes Status: Acute Assessment and Plan: Encouraged tobacco cessation will order nicotine patch and gum, given a diagnosis of PAD with with severe disease of the left lower extremity patient was strongly advised him encouraged to cease tobacco use (9) Hypotension Current Visit: Yes Status: Acute Assessment and Plan: Patient has been running low blood pressure in the setting of narcotic analgesia will start him on IV continuous hydration, blood pressure improved with the IV bolus due to concerns for sepsis. His urine output has been oliguric - Time Spent with Patient Total time spent is greater than 50% in coordination of care (as documented) at patient's floor/unit and/or counseling patient: Internal Medicine: Result - Labs CBC & Chem 7: 07/26/19 03:07 07/26/19 03:07 Labs: Short CBC 07/26/19 Range/Units 03:07 WBC 12.5 H (4.3-11.1) K/mcL Hgb 8.1 L (12.9-16.9) g/dL Hct 25.2 L (37.5-50.1) % Plt Count 248 (140-400) K/mcL Neutrophils # 10.2 H (1.6-8.9) K/mcL BMP 07/26/19 03:07 Sodium 136 Potassium 3.8 Chloride 104 Carbon Dioxide 24 BUN 23 Creatinine 1.67 H Glucose 89 Calcium 8.7 Cardiac Enzymes 07/25/19 07/26/19 Range/Units 20:36 03:07 Troponin I 0.05 H* 0.06 H* (< 0.04) ng/mL - ABG Interpretation ABG results: PT/INR, D-dimer PT 13.2 Seconds (9.4-12.1) H 07/25/19 14:28 - Impressions Impressions Foot CT 07/25/19 15:12 IMPRESSION: 1. Subacute fracture of the left toe distal phalanx with focus of gas which appears contiguous with the skin surface. 2. No formed fluid collection or abscess. 3. No radiopaque foreign body. D/ / 07/25/2019 16:19:08 Presley Sánchez MD / jesica Interpreting Provider: Presley Sánchez MD Foot X-Ray 07/26/19 10:42 IMPRESSION: Status post amputation of the left 3rd toe D/ / Gallo Osorio MD / Gallo Osorio MD Interpreting Provider: Gallo Osorio MD Consult Discharge Plan - Plan Referrals: Jessenia Self MD [Primary Care Provider] - (5) CKD (chronic kidney disease) Qualifiers: Chronic kidney disease stage: unspecified stage Qualified Code(s): N18.9 - Chronic kidney disease, unspecified (6) Diabetes mellitus Qualifiers: Diabetes mellitus type: type 2 Diabetes mellitus intermediate accountant insulin use: without nursing home use Diabetes mellitus complication status: with hypoglycemia Diabetes mellitus complication detail: without coma Qualified Code(s): E11.649 - Type 2 diabetes mellitus with hypoglycemia without coma
[2019-07-26] MEDS ORDERED: Isovue-370 500 ML BOTTLE IVP ONE (17:30)
--- NOTE | 2019-07-26 17:50 | Vascular/Endovasc Consult Note ---
Date of Encounter: 07/26/19 Time of Encounter: 16:45 Assessment and Plan (1) Atherosclerosis of [place] arteries of extremities with gangrene, left leg Status: Chronic The pathophysiology and natural history of peripheral vascular disease with discussed with the patient and his family. All questions were answered. The patient has evidence of severe left lower extremity peripheral vascular disease and moderate disease of the right lower extremity. He recently required a left third toe amputation due to gas great gangrene. The patient will be scheduled for an angiogram with possible intervention. The risks, benefits and alternatives were discussed and all questions were answered. (2) Diabetes mellitus Status: Chronic The patient was counseled regarding atherosclerotic risk factor reduction. Qualifiers: Diabetes mellitus type: type 2 Diabetes mellitus detention insulin use: with detention use Diabetes mellitus complication status: with circulatory complication Diabetes mellitus complication detail: with peripheral angiopathy with gangrene Qualified Code(s): E11.52 - Type 2 diabetes mellitus with diabetic peripheral angiopathy with gangrene; Z79.4 - custodial (current) use of insulin (3) CKD (chronic kidney disease) Status: Chronic Qualifiers: Chronic kidney disease stage: unspecified stage Qualified Code(s): N18.9 - Chronic kidney disease, unspecified (4) Tobacco dependency Status: Chronic - History of Present Illness Consult date: 07/26/19 Requesting physician: Ju Gan Consult reason: Peripheral vascular disease Chief complaint: Ischemic left toe History of present illness: Mr. Swanson is a 64 year old male with a history of diabetes, chronic kidney disease, tobacco abuse, hyperlipidemia and hypertension. The patient presented to the emergency room with cyanosis and pain in his left third toe. He is admitted to [facility] for gas gangrene of the left third toe. He underwent debridement of the wound and amputation of the left third toe. The patient then underwent vascular studies reveal severe left lower extremity disease. Vascular surgery was counseled to aid for further evaluation. At the time of evaluation the patient reports that he is comfortable and has adequate pain control. He denies any fevers or chills. He denies any chest pain or shortness of breath. Past Med Surg Social Fam HX - Past Medical History Medical history: CVA, diabetes, hyperlipidemia, hypertension Psychiatric history: no psych history - Past Surgical History Surgical History: appendectomy Additional surgical history: neck surgery - Social History Smoking Status: Current every day smoker Packs per day: 1/2 Smokeless Tobacco Status: No Alcohol use: none Drug use: none - Family History Father Hx Family Cardiac Disorders: Yes Hx Family Cancer: Yes Mother Hx Family Cardiac Disorders: Yes Hx Family Cancer: Yes Medications and Allergies Clopidogrel [Plavix] 75 mg PO DAILY 06/07/19 [History] Acetaminophen [Tylenol] 650 mg PO Q6HR PRN tablet 07/30/19 [Rx] Allopurinol [Zyloprim 100 MG] 100 mg PO DAILY tablet 07/30/19 [Rx] Aspirin Enteric Coated [Aspirin EC] 81 mg PO DAILY tablet. 07/30/19 [Rx] Atorvastatin [Lipitor] 40 mg PO HS tablet 07/30/19 [Rx] Carvedilol [Coreg] 12.5 mg PO BIDWM tablet 07/30/19 [Rx] Cholecalciferol (D-3) [Vitamin D] 1,000 unit PO DAILY tablet 07/30/19 [Rx] Cyanocobalamin (B-12) [Vitamin B12] 1,000 mcg PO DAILY tablet 07/30/19 [Rx] Glucagon, Human Recombinant [Glucagen] 1 mg IM ONCE PRN vial 07/30/19 [Rx] Heparin 5,000 unit SQ Q12HR vial 07/30/19 [Rx] Insulin LISPRO [HumaLOG] 0 units SQ Q6HR vial 07/30/19 [Rx] Nicotine Gum [Nicorette gum] 2 mg BC Q2HWA PRN gum 07/30/19 [Rx] Nicotine Patch [Nicoderm] 21 mg TD DAILY patch.td24 07/30/19 [Rx] Omeprazole [PriLOSEC] 20 mg PO 0730 capsule. 07/30/19 [Rx] Ondansetron [Zofran] 4 mg IVP Q8HR PRN vial 07/30/19 [Rx] Allergy/AdvReac Type Severity Reaction Status Date / Time No Known Allergies Allergy Verified 06/21/19 08:20 All Systems Review: The remainder of the systems were reviewed and are negative - Constitutional Constitutional: no chills, no fever(s) - Cardiovascular Cardiovascular: no chest pain at rest, no dyspnea at rest Exam Vital Signs, Last 4 Hours Temp Pulse Resp BP Pulse Ox 07/26/19 15:43 98.1 F 72 16 109/68 95 General: Present: Conversant, No Apparent Distress Neck: Absent: JVD, Lymphadenopathy, Left Carotid bruit, Right Carotid bruit Cardiac: Present: Reg Rate and Rhythm, Normal S1 and S2 Lungs: Present: Normal Breath Sounds Neuro: Present: Alert and responsive, No focal deficits noted Abdomen: Present: Soft, Non-tender. Absent: Masses Vascular: Present: Normal capillary refill, Pulse, absent (Bilateral pedal pulses are absent), Amputation(s) (Left third toe amputation wound has bandage in place.). Absent: Cyanosis (No cyanosis of the feet noted), Edema Consult Discharge Plan - Plan Additional Instructions: Heel weight bearing only, wear surgical shoe when ambulating Follow up with podiatry clinic upon discharge Referrals: Jessenia Self MD [Primary Care Provider] -
[2019-07-26] MEDS ORDERED: Lidocaine Jelly 11 ml Syringe MM ONE (19:19)
[2019-07-26] MEDS: Insulin DETEMIR 100 UNIT/ML X5UNITS SQ SCH (20:43)
[2019-07-26] MEDS: *HR* Acetylcysteine 20% 600 MG/3 ML ORAL SYRINGE PO SCH (20:44)
[2019-07-26] MEDS: Acetaminophen 325 MG TABLET PO PRN (20:45)
[2019-07-26] MEDS ORDERED: NON-FORMULARY MEDICATION 1 EACH EACH (Carvedilol 12.5 MG) PO SCH (21:00)
[2019-07-26 21:14] LABS: Bilirubin,Urine Negative (Negative); Blood,Urine Negative (Negative); Clarity,Urine Clear (Clear); Color,Urine Yellow (Yellow); Glucose,Urine (UA) Normal (Normal); Ketones,Urine Negative (Negative); Leukocyte Esterase,Urine Negative (Negative); Nitrite,Urine Negative (Negative); Protein,Urine 30 mg/dL (Neg-Trace); Specific Gravity,Urine 1.014 (1.010-1.025); Urobilinogen,Urine Normal (Normal)
[2019-07-26 21:16] LABS: Bacteria,Urine None Seen per hpf (None-Few); Hyaline Casts,Urine None Seen per lpf (None-Few); RBC,Urine 0-3 per hpf (0-3); Squamous Epithelial Cell,Urine None Seen per lpf (None-Few); WBC,Urine 0-3 per hpf (0-3)
[2019-07-27] MEDS: Piperacillin/Tazobactam 3.375 GM in 0.9 % Sodium Chloride Mini Bag 100 ML IVPB SCH ×3 (02:20→16:42)
[2019-07-27 04:24] LABS: Basophils # 0.1 K/mcL (0.0-0.2); Basophils % 0.5 %; Eosinophils # 0.4 K/mcL (0.0-0.6); Hematocrit 24.9 % (37.5-50.1); Immature Granulocytes % 0.8 % (0-4); Lymphocytes # 1.3 K/mcL (0.6-4.6); Lymphocytes % 11.1 %; Mean Corpuscular HGB Conc 32.1 g/dL (31.6-35.5); Mean Corpuscular Hemoglobin 29.5 pg (28.0-33.3); Mean Corpuscular Volume 91.9 fL (83.0-100.0); Mean Platelet Volume 9.8 fL (9.4-12.4); Monocytes % 8.1 %; Neutrophils # 9.1 K/mcL (1.6-8.9); Platelet Count 232 K/mcL (140-400); Red Blood Count 2.71 M/mcL (4.19-5.50); Red Cell Distribution Width 13.3 % (11.5-14.5); Segmented Neutrophils % 76.5 %; White Blood Count 11.9 K/mcL (4.3-11.1)
[2019-07-27 04:42] LABS: Calcium 8.7 mg/dL (8.6-10.3); Magnesium 1.8 mg/dL (1.6-2.6); Potassium 3.6 mEq/L (3.5-5.1)
[2019-07-27] MEDS: *HR* Heparin 5,000 UNIT/ML VIAL SQ SCH ×2 (07:15→16:51)
[2019-07-27] MEDS: Insulin LISPRO 300 UNITS/3 ML VIAL SQ SCH ×3 (08:33→16:55)
--- NOTE | 2019-07-27 08:44 | Internal Med Progress Note ---
Hospitalist Progress Note - Encounter Date of Encounter: 07/27/19 Time of Encounter: 08:41 - Subjective Interval History: Mr Swanson still appears altered and required one-to-one supervision overnight. Family did admit to having a prior history of stroke however his CT head was inconclusive for an acute stroke but revealed prior cerebral infarct. Patient also call from patient having urinary retention and was currently being walked up with urology. His bladder scan yesterday revealed over a liter of urine since insertion of the Carter catheter patient has voided over 3.4 L. GEN: Denies fever, chills or malaise HEENT: Denies headache blurriness, or dysphagia RESP: Denies SOB or cough CV: Denies chest pain or palpitations GI: Denies Nausea, vomiting, diarrhea or constipation Reviewed current in hospital medications with modifications see orders Reviewed Routine labs - Exam Vitals: Temp Pulse Resp BP Pulse Ox 100.4 F H 86 18 127/71 92 07/27/19 07:23 07/27/19 07:23 07/27/19 07:23 07/27/19 07:23 07/27/19 08:20 Exam: GEN: NAD, A&O x1 to self only not oriented to time and place, Pleasant and conversant, 2 sisters, brother and at the bedside SKIN: [place] warm acyanotic not jaundice HEART: RRR, no murmurs LUNGS: CTA no wheeze or crackles, overall non labored ABDOMEN; Soft, non tender or distended, BS x 4 normactive EXT: No LE edema, Pedal pulses 1+, radial pulses 2+ PSYCH: Mood and affect is appropriate - Assessment and Plan (1) Acute encephalopathy Current Visit: Yes Status: Acute Assessment and Plan: CT of the brain yesterday was inconclusive we will obtain MRI of the brain due to concerns of possible acute stroke his ammonia level was within normal limits. Patient is required one-to-one supervision. Patient has been febrile overnight hence sepsis is likely the underlying reason for his altered mentation. He was already on antibiotics status post presentation with gas gangrene of his 3rd toe. We will consider monitoring clinically correlate this morning family members at his bedside-2 sisters, brother and still states that he is not back to baseline (2) Sepsis Current Visit: Yes Status: Acute Assessment and Plan: Patient is meeting criteria for sepsis given the febrile response leukocytosis overnight with the likely source being his presenting with the gas gangrene of the third toe, initial blood culture on admission has been negative for 2 days patient was already started on empiric antibiotics with vancomycin pharmacy to dose given his CKD and Zosyn hence repeating the blood culture today will be un- yielding. His surgical wound culture does reveal gram-negative radha will await blood cultures to finalize before descalating antibiotics (3) Urinary retention Current Visit: Yes Status: Acute Assessment and Plan: Patient with obstructive uropathy that was being worked up as an outpatient, urine output improved since insertion of Carter urology consult is pending appreciated input (4) Open fracture Current Visit: Yes Status: Acute Assessment and Plan: Status post incision and drainage below the fascia of the left first toe, left third toe amputation. Stable postop day 2 Ongoing plan per podiatry team appreciate input, Of note- CT of the left foot reveals subacute fracture of the left toe distal to the phalanx with focus of gas. (5) Gas gangrene Current Visit: Yes Status: Acute Assessment and Plan: Wound culture revealed gram-negative rods continue current antibiotic therapy for now pending blood cultures, pharmacy to dose his vancomycin appreciate their input Status post incision and drainage below the fascia of the left first toe, left third toe amputation. Stable postop day2, of note CT of the left foot reveals subacute fracture of the left toe distal to the phalanx with focus of gas. He was evaluated by podiatry team we appreciate their input is planned for OR today, on examination appears to have necrotic left 3rd toe with black eschar. Suspect underlying PAD given his tobacco use EDUARDO ordered for tomorrow (6) PAD (peripheral artery disease) Current Visit: Yes Status: Acute Assessment and Plan: Patient was evaluated by the vascular surgeon appreciate input he was planned for arteriogram today. Appears this will be postponed pending his workup for possible acute stroke preliminary report of the ankle brachial index as follows: RT EDUARDO 0.64 indicating moderate arterial disease by tech data table. LT EDUARDO 0.36 indicating severe arterial disease by tech data table. Vascular surgery consult pending notified vascular surgeon via OR nurse this afternoon (7) Troponin I above reference range Current Visit: Yes Status: Acute Assessment and Plan: Patient still denies chest pain this morning. Troponin 0.06 in the setting of CKD, denies chest pain trend 0.05-0.06. Patient will benefit from either ischemic workup inpatient after his been evaluated by vascular surgeon for his PAD given his critical limb ischemia on an outpatient (8) CKD (chronic kidney disease) Current Visit: Yes Status: Acute Assessment and Plan: Serum creatinine trended up to 1.72. Of note-He was hospitalized in May 2019 for acute renal failure attributed to obstructive uropathy serum creatinine today Is much improved compared to May 2019 we will trend, check PSA, monitor I's and O's equally denies any urinary difficulties, serum creatinine improved from 1.92-1.67, only 0.3 L out so far continue to monitor may be due to bladder scan if urine output does not improve by tomorrow (9) Diabetes mellitus Current Visit: Yes Status: Acute Assessment and Plan: A1c 7.3, insulin per protocol. Glycemic control indicated for proper wound healing, on basal and short acting insulin, POC ranged from 95-156 slightly behind goal of 180-200 given his acute state, would reduce his short acting coverage (10) DVT prophylaxis Current Visit: Yes Status: Acute Assessment and Plan: Heparin subcutaneous (11) Tobacco dependency Current Visit: Yes Status: Acute Assessment and Plan: Encouraged tobacco cessation will order nicotine patch and gum, given a diagnosis of PAD with with severe disease of the left lower extremity patient was strongly advised him encouraged to cease tobacco use (12) Hypotension Current Visit: Yes Status: Acute Assessment and Plan: Resolved responded to IV hydration 123-128/64-71 Patient has been running low blood pressure in the setting of narcotic analgesia will start him on IV continuous hydration, blood pressure improved with the IV bolus due to concerns for sepsis. His urine output has been oliguric - Time Spent with Patient Total time spent is greater than 50% in coordination of care (as documented) at patient's floor/unit and/or counseling patient: Internal Medicine: Result - Labs CBC & Chem 7: 07/27/19 04:03 07/27/19 04:03 Labs: Short CBC 07/27/19 Range/Units 04:03 WBC 11.9 H (4.3-11.1) K/mcL Hgb 8.0 L (12.9-16.9) g/dL Hct 24.9 L (37.5-50.1) % Plt Count 232 (140-400) K/mcL Neutrophils # 9.1 H (1.6-8.9) K/mcL BMP 07/27/19 04:03 Sodium 135 L Potassium 3.6 Chloride 101 Carbon Dioxide 25 BUN 19 Creatinine 1.72 H Glucose 77 Calcium 8.7 Urine 07/26/19 Range/Units 20:50 Urine Color Yellow (Yellow) Urine Clarity Clear (Clear) Urine pH 6.0 (5.0-8.0) pH Units Ur Specific [place] 1.014 (1.010-1.025) Urine Protein 30 H (Neg-Trace) mg/dL Urine Glucose (UA) Normal (Normal) mg/dL - ABG Interpretation ABG results: PT/INR, D-dimer PT 13.2 Seconds (9.4-12.1) H 07/25/19 14:28 - Impressions Impressions Foot X-Ray 07/26/19 10:42 IMPRESSION: Status post amputation of the left 3rd toe. D/ / 07/26/2019 15:28:54 Gallo Osorio MD / Coreen Salamanca Interpreting Provider: Gallo Osorio MD Head CT 07/26/19 17:34 IMPRESSION: Motion limited examination, demonstrating atrophy, small vessel ischemic disease, and sequela of prior left cerebellar infarct. If patient has persistent symptoms, short-term interval follow-up when patient is better able to tolerate the exam may be helpful. 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 D/ / Maurice Santiago MD / Maurice Santiago MD Interpreting Provider: Maurice Santiago MD Consult Discharge Plan - Plan Referrals: Jessenia Self MD [Primary Care Provider] - (2) Sepsis Qualifiers: Sepsis type: sepsis due to unspecified organism Sepsis acute organ dysfunction status: with acute organ dysfunction Severe sepsis acute organ dysfunction type: encephalopathy Severe sepsis shock status: without septic shock Qualified Code(s): A41.9 - Sepsis, unspecified organism; R65.20 - Severe sepsis without septic shock; G93.40 - Encephalopathy, unspecified (8) CKD (chronic kidney disease) Qualifiers: Chronic kidney disease stage: unspecified stage Qualified Code(s): N18.9 - Chronic kidney disease, unspecified (9) Diabetes mellitus Qualifiers: Diabetes mellitus type: type 2 Diabetes mellitus long term care administrator insulin use: without longterm use Diabetes mellitus complication status: with hypoglycemia Diabetes mellitus complication detail: without coma Qualified Code(s): E11.649 - Type 2 diabetes mellitus with hypoglycemia without coma
[2019-07-27] MEDS: Cholecalciferol (D-3) 1,000 UNIT (25MCG) TABLET PO SCH (08:47)
[2019-07-27] MEDS: Aspirin Enteric Coated 81 MG Tablet PO SCH (08:47)
[2019-07-27] MEDS: Nicotine 21 MG PATCH.TD24 TD SCH (08:47)
[2019-07-27] MEDS: Furosemide 40 MG TABLET PO SCH (08:47)
[2019-07-27] MEDS: Cyanocobalamin (B-12) 1,000 MCG TABLET PO SCH (08:47)
[2019-07-27] MEDS ORDERED: Aspirin Enteric Coated 81 MG Tablet PO SCH (09:00)
[2019-07-27] MEDS ORDERED: Dextrose Gel 15 GM/37.5 ML TUBE PO PRN ×2 (09:02)
[2019-07-27] MEDS ORDERED: D5% in Water 1,000 ML IVC PRN (09:02)
[2019-07-27] MEDS ORDERED: *HR* Dextrose 50 % in Water (Syg) 50 ML SYRINGE IVP PRN (09:02)
[2019-07-27] MEDS: *HR* OxyCODONE Immed Rel 5 MG TABLET PO PRN (09:04)
[2019-07-27] MEDS: *HR* Acetylcysteine 20% 600 MG/3 ML ORAL SYRINGE PO SCH ×2 (09:46→19:41)
--- NOTE | 2019-07-27 09:53 | Nephrology Consult Note ---
Date of Encounter: 07/27/19 Time of Encounter: 09:53 History of Present Illness - Reason for Consult Consult date: 07/27/19 Acute Kidney Injury - Chief Complaint naye - History of Present Illness Mr. Swanson is a 64 yo man with a recent history of acute kidney injury that was felt to be secondary to obstructive uropathy who presents for evaluation of pain and cyanosis and his toe. During his hospitalization it appears that the patient had another episode of urinary obstruction and this improved with placement of a Carter. Urology has been consult to Alexander Carter and had Stacy kidney Specialist consulted to manage the creatinine which went from 1.67 1.7. At the time my evaluation patient will be sleepy, however, he denies chest pain, shortness of breath and states he is okay. I am not sure get a full review of systems or an accurate review of systems secondary to his sleepy state. a/p Unfortunately the assessment and plan portion of this electronic note is blocked so I cannot enter the assessment and plan. The assessment plan will be entered below. The patient has acute kidney injury that seems to be secondary to obstructive uropathy. Looking at his creatinine trend this seems to be continued improvement. On looking at the records his urine output after Carter placement was about 3 L. Urology has evaluated and the patient has elected to continue an indwelling Carter which is probably appropriate. His creatinine went from 1.9-1.67-1.7 and I anticipate that it will improve now that his urine output is good. We do not have a baseline renal function in the records available to me in the electronic system. Currently his renal function is much better than it was in the past. There is no barrier to discharge from a renal standpoint. If he is discharged she can follow-up in the renal clinic in the next 1-3 months with a renal function panel 1 week prior to his clinic visit. At that time we can see what his baseline renal function is. If the patient is here tomorrow then we will evaluate what his creatinine trend is any risk management professional based off his renal response to current therapy. I recommend avoiding nephrotoxic agents and adjusting medications for renal function as needed. Also avoid hypotension. If he is not eating and drinking well consider intravenous hydration. Past Med Surg Social Fam HX - Past Medical History Medical history: CVA, diabetes, hyperlipidemia, hypertension Psychiatric history: no psych history - Past Surgical History Surgical History: appendectomy Additional surgical history: neck surgery - Social History Smoking Status: Current every day smoker Packs per day: 1/2 Smokeless Tobacco Status: No Alcohol use: none Drug use: none - Family History Father Hx Family Cardiac Disorders: Yes Hx Family Cancer: Yes Mother Hx Family Cardiac Disorders: Yes Hx Family Cancer: Yes Medications and Allergies Aspirin [Cassandra Aspirin EC] 81 mg PO DAILY 06/07/19 [History] Carvedilol 12.5 mg PO BID 06/07/19 [History] Clopidogrel [Plavix] 75 mg PO DAILY 06/07/19 [History] glipiZIDE [Glipizide] 10 mg PO BID 06/07/19 [History] Allopurinol [Zyloprim 100 MG] 100 mg PO DAILY 07/25/19 [History] Furosemide [Lasix] 40 mg PO BID 07/25/19 [History] Omeprazole [PriLOSEC] 20 mg PO DAILY 07/25/19 [History] Cholecalciferol (Vitamin D3) [Vitamin D] 5,000 unit PO DAILY 07/26/19 [History] Allergy/AdvReac Type Severity Reaction Status Date / Time No Known Allergies Allergy Verified 06/21/19 08:20 Review of Systems ROS unobtainable: due to mental status Exam - Vital Signs Vital signs: Initial Vital Signs Temp Pulse Resp BP Pulse Ox 98.6 F 54 16 73/38 99 07/25/19 13:54 07/25/19 13:54 07/25/19 13:54 07/25/19 13:54 07/25/19 13:54 Vital Signs - Last 8 Hours Temp Pulse Resp BP Pulse Ox 07/27/19 08:20 92 07/27/19 07:23 100.4 F H 86 18 127/71 92 07/27/19 03:17 98.1 F 74 17 123/64 91 Intake and Output 07/26/19 07/27/19 07/27/19 23:59 07:59 15:59 Intake Total 100 / 1712.5 100 / 100 Output Total 600 / 600 2800 / 2800 Balance -500 / 1112.5 -2800 / -2700 100 / -2700 Intake: IV Fluids 100 / 1612.5 100 / 100 Zosyn 3.375 GM In 0.9 % Sodium 100 / 100 100 / 100 Chloride (Mini-Bag +) 100 ML @ 25 mls/hr IVPB Q8HR [facility] Rx#: [id number] Oral 0 / 100 Output: Catheter 600 / 600 2800 / 2800 Coude 600 / 600 Other: # Urine Diapers 1 Blood Glucose* 103 79 - General Appearance General appearance: well-developed, well-nourished EENT: ATNC Neck: supple Respiratory: course breath sounds Cardiology: no edema, regular rate Gastrointestinal: no tenderness Integumentary: warm and dry Additional Comments: Patient is lethargic but arousable. He falls asleep multiple times during his evaluation. Musculoskeletal: no cyanosis Psychiatric: mood/affect appropriate Results - Lab Results 07/27/19 04:03 07/27/19 04:03 Most recent lab results 07/27/19 04:03 Calcium 8.7 Magnesium 1.8 Consult Discharge Plan - Plan Referrals: Jessenia Self MD [Primary Care Provider] -
--- NOTE | 2019-07-27 10:09 | Urology - Consult Note ---
<Marianna Tabares N - Last Filed: 07/27/19 10:06> Date of Encounter: 07/27/19 Time of Encounter: 09:20 - Assessment and Plan (1) Urinary retention Current Visit: Yes Status: Acute Assessment and plan: Patient is a 64-year-old male who presents the history of urinary retention. I discussed the option of leaving an indwelling Carter catheter versus removing patient's catheter and resuming with SIC. Patient and his both elected to continue with indwelling Carter until they able to discuss a greenlight procedure with Dr. Chen. When patient is discharged, he will need to be discharged with the current Carter catheter in place. Patient also prefers to continue with the bedside bag instead of a leg bag. Patient's states he has been rescheduled with Dr. Chen for 08/17/2019. Urology CN:[facility] Consult date: 07/27/19 Reason for consult Urology: Other (urinary retention) Requesting physician: Fady Bhatia History of present illness: Patient is a 64-year-old male who presents with a history of urinary retention. Patient is established with Dr. Chen, and he was scheduled today for an appointment to further discuss greenlight PVP procedure planning. Patient has a long-standing history of urinary retention and has been instructed to perform self intermittent catheterization. Patient's structural engineering drafting officer reports he has not been performing SIC, and he will not allow her to catheterize him. Patient underwent a left third toe amputation 2 days ago, and he was unable to urinate postoperatively. A Carter catheter was placed, and 600 mL of clear urine was returned. On my evaluation, patient is sitting upright in bed in no apparent distress, and he denies any flank pain or gross hematuria. Carter catheter is indwelling and draining sufficiently. Past Med Surg Social Fam HX - Past Medical History Medical history: CVA, diabetes, hyperlipidemia, hypertension Psychiatric history: no psych history - Past Surgical History Surgical History: appendectomy Additional surgical history: neck surgery - Social History Smoking Status: Current every day smoker Packs per day: 1/2 Smokeless Tobacco Status: No Alcohol use: none Drug use: none - Family History Father Hx Family Cardiac Disorders: Yes Hx Family Cancer: Yes Mother Hx Family Cardiac Disorders: Yes Hx Family Cancer: Yes Medications and Allergies Aspirin [[place] Aspirin EC] 81 mg PO DAILY 06/07/19 [History] Carvedilol 12.5 mg PO BID 06/07/19 [History] Clopidogrel [Plavix] 75 mg PO DAILY 06/07/19 [History] glipiZIDE [Glipizide] 10 mg PO BID 06/07/19 [History] Allopurinol [Zyloprim 100 MG] 100 mg PO DAILY 07/25/19 [History] Furosemide [Lasix] 40 mg PO BID 07/25/19 [History] Omeprazole [PriLOSEC] 20 mg PO DAILY 07/25/19 [History] Cholecalciferol (Vitamin D3) [Vitamin D] 5,000 unit PO DAILY 07/26/19 [History] Allergy/AdvReac Type Severity Reaction Status Date / Time No Known Allergies Allergy Verified 06/21/19 08:20 Review of Systems - Constitutional no chills, no fatigue, no fever(s) - EENT Nose, mouth and throat: no dizziness, no headache(s) - Cardiovascular no chest pain, no diaphoresis, no dyspnea - Respiratory no cough, no dyspnea - Gastrointestinal nausea, no abdominal pain, no vomiting - Genitourinary change in urinary stream, difficulty urinating, no dysuria, no flank pain, no hematuria, no urinary frequency, no urinary hesitancy, no urinary incontinence, no urinary urgency - Musculoskeletal no back pain, no muscle weakness - Integumentary no erythema, no rash - Neurological no confusion, no syncope - Psychiatric no anxiety, no confusion - Hematologic/Lymphatic no easy bleeding, no easy bruising - Allergic/Immunologic no throat swelling, no wheezing Exam Initial Vital Signs Temp Pulse Resp BP Pulse Ox 98.6 F 54 16 73/38 99 07/25/19 13:54 07/25/19 13:54 07/25/19 13:54 07/25/19 13:54 07/25/19 13:54 - General physical appearance Present: no distress, no pain - Eyes Present: PERRL, normal ocular movement - ENT Present: normal nares, no congestion, decreased hearing - Neck Present: no masses, trachea midline, no lymphadenopathy - Respiratory Present: normal respiratory effort - Cardiovascular Cardiovascular exam IM: RRR - Abdomen Abdomen: Present: soft, non tender. Absent: distended - Genitourinary other (Carter catheter is indwelling and draining transparent, clear yellow urine into bedside bag) - Integumentary Present: no rash, no abnormal pigmentation - Neurologic Present: normal coordination - Musculoskeletal Present: other (Normal posture) Urology Results - Labs 07/27/19 04:03 07/27/19 04:03 Abnormal lab results WBC 11.9 K/mcL (4.3-11.1) H 07/27/19 04:03 RBC 2.71 M/mcL (4.19-5.50) L 07/27/19 04:03 Hgb 8.0 g/dL (12.9-16.9) L 07/27/19 04:03 Hct 24.9 % (37.5-50.1) L 07/27/19 04:03 Neutrophils # 9.1 K/mcL (1.6-8.9) H 07/27/19 04:03 ESR 112 mm/hr (0-10) H 07/25/19 14:28 PT 13.2 Seconds (9.4-12.1) H 07/25/19 14:28 VBG pO2 57 mmHg (25-50) H 07/25/19 15:43 Sodium 135 mEq/L (136-145) L 07/27/19 04:03 BUN 26 mg/dL (8-23) H 07/25/19 14:28 Creatinine 1.72 mg/dL (0.70-1.30) H 07/27/19 04:03 Est GFR ( Amer) 49 (> 60) L 07/27/19 04:03 Est GFR (Non-Af Amer) 40 (> 60) L 07/27/19 04:03 Glucose 133 mg/dL (70-105) H 07/25/19 14:28 POC Glucose 117 mg/dL (70-99) H 07/26/19 11:10 Hemoglobin A1c 7.3 % (-5.6) H 07/25/19 14:31 Iron 20 mcg/dL (65-175) L 07/26/19 03:07 % Saturation 10 % (20-55) L 07/26/19 03:07 Transferrin 148 mg/dL (203-362) L 07/26/19 03:07 AST 12 Units/L (13-39) L 07/25/19 14:28 Troponin I 0.06 ng/mL (< 0.04) H* 07/26/19 03:07 C-Reactive Protein 90 mg/L (Less than 10) H 07/25/19 14:28 Vitamin B12 204 pg/mL (250-1100) L 07/26/19 03:07 Beta-Hydroxybutyric Acd 0.28 mmol/L (0.02-0.27) H 07/25/19 15:31 Urine Protein 30 mg/dL (Neg-Trace) H 07/26/19 20:50 Vancomycin Trough 13 mcg/mL (5-10) H 07/27/19 08:12 Diabetes panel 07/27/19 Range/Units 04:03 Sodium 135 L (136-145) mEq/L Potassium 3.6 (3.5-5.1) mEq/L Chloride 101 (98-107) mEq/L Carbon Dioxide 25 (23-29) mEq/L BUN 19 (8-23) mg/dL Creatinine 1.72 H (0.70-1.30) mg/dL Glucose 77 (70-105) mg/dL Calcium 8.7 (8.6-10.3) mg/dL Calcium panel 07/27/19 Range/Units 04:03 Calcium 8.7 (8.6-10.3) mg/dL Pituitary panel 07/27/19 Range/Units 04:03 Sodium 135 L (136-145) mEq/L Potassium 3.6 (3.5-5.1) mEq/L Chloride 101 (98-107) mEq/L Carbon Dioxide 25 (23-29) mEq/L BUN 19 (8-23) mg/dL Creatinine 1.72 H (0.70-1.30) mg/dL Glucose 77 (70-105) mg/dL Calcium 8.7 (8.6-10.3) mg/dL Adrenal panel 07/27/19 Range/Units 04:03 Sodium 135 L (136-145) mEq/L Potassium 3.6 (3.5-5.1) mEq/L Chloride 101 (98-107) mEq/L Carbon Dioxide 25 (23-29) mEq/L BUN 19 (8-23) mg/dL Creatinine 1.72 H (0.70-1.30) mg/dL Glucose 77 (70-105) mg/dL Calcium 8.7 (8.6-10.3) mg/dL All other labs normal. Consult Discharge Plan - Plan Referrals: Jessenia Self MD [Primary Care Provider] - <Alvarado Mendes - Last Filed: 07/27/19 18:27> Date of Encounter: 07/27/19 Urology CN:[facility] History of present illness: Patient was seen and examined independently. I agree with the plan as written by Marianna Tabares. At this point patient with urinary retention with catheter in place. Patient will keep scheduled catheter follow-up with Dr. Chen. Exam Initial Vital Signs Temp Pulse Resp BP Pulse Ox 98.6 F 54 16 73/38 99 07/25/19 13:54 07/25/19 13:54 07/25/19 13:54 07/25/19 13:54 07/25/19 13:54 Urology Results - Labs 07/27/19 04:03 07/27/19 04:03 Abnormal lab results WBC 11.9 K/mcL (4.3-11.1) H 07/27/19 04:03 RBC 2.71 M/mcL (4.19-5.50) L 07/27/19 04:03 Hgb 8.0 g/dL (12.9-16.9) L 07/27/19 04:03 Hct 24.9 % (37.5-50.1) L 07/27/19 04:03 Neutrophils # 9.1 K/mcL (1.6-8.9) H 07/27/19 04:03 ESR 112 mm/hr (0-10) H 07/25/19 14:28 PT 13.2 Seconds (9.4-12.1) H 07/25/19 14:28 VBG pO2 57 mmHg (25-50) H 07/25/19 15:43 Sodium 135 mEq/L (136-145) L 07/27/19 04:03 BUN 26 mg/dL (8-23) H 07/25/19 14:28 Creatinine 1.72 mg/dL (0.70-1.30) H 07/27/19 04:03 Est GFR ( Amer) 49 (> 60) L 07/27/19 04:03 Est GFR (Non-Af Amer) 40 (> 60) L 07/27/19 04:03 Glucose 133 mg/dL (70-105) H 07/25/19 14:28 POC Glucose 117 mg/dL (70-99) H 07/26/19 11:10 Hemoglobin A1c 7.3 % (-5.6) H 07/25/19 14:31 Iron 20 mcg/dL (65-175) L 07/26/19 03:07 % Saturation 10 % (20-55) L 07/26/19 03:07 Transferrin 148 mg/dL (203-362) L 07/26/19 03:07 AST 12 Units/L (13-39) L 07/25/19 14:28 Troponin I 0.06 ng/mL (< 0.04) H* 07/26/19 03:07 C-Reactive Protein 90 mg/L (Less than 10) H 07/25/19 14:28 Vitamin B12 204 pg/mL (250-1100) L 07/26/19 03:07 Beta-Hydroxybutyric Acd 0.28 mmol/L (0.02-0.27) H 07/25/19 15:31 Urine Protein 30 mg/dL (Neg-Trace) H 07/26/19 20:50 Vancomycin Trough 13 mcg/mL (5-10) H 07/27/19 08:12 Diabetes panel 07/27/19 Range/Units 04:03 Sodium 135 L (136-145) mEq/L Potassium 3.6 (3.5-5.1) mEq/L Chloride 101 (98-107) mEq/L Carbon Dioxide 25 (23-29) mEq/L BUN 19 (8-23) mg/dL Creatinine 1.72 H (0.70-1.30) mg/dL Glucose 77 (70-105) mg/dL Calcium 8.7 (8.6-10.3) mg/dL Calcium panel 07/27/19 Range/Units 04:03 Calcium 8.7 (8.6-10.3) mg/dL Pituitary panel 07/27/19 Range/Units 04:03 Sodium 135 L (136-145) mEq/L Potassium 3.6 (3.5-5.1) mEq/L Chloride 101 (98-107) mEq/L Carbon Dioxide 25 (23-29) mEq/L BUN 19 (8-23) mg/dL Creatinine 1.72 H (0.70-1.30) mg/dL Glucose 77 (70-105) mg/dL Calcium 8.7 (8.6-10.3) mg/dL Adrenal panel 07/27/19 Range/Units 04:03 Sodium 135 L (136-145) mEq/L Potassium 3.6 (3.5-5.1) mEq/L Chloride 101 (98-107) mEq/L Carbon Dioxide 25 (23-29) mEq/L BUN 19 (8-23) mg/dL Creatinine 1.72 H (0.70-1.30) mg/dL Glucose 77 (70-105) mg/dL Calcium 8.7 (8.6-10.3) mg/dL All other labs normal.
--- NOTE | 2019-07-27 11:11 | Podiatry Progress Note ---
Date of Encounter: 07/27/19 Objective - Vital Signs Vital Signs: Vital Signs Temp Pulse Resp BP Pulse Ox 07/27/19 11:04 99.2 F 71 14 97/48 94 07/27/19 08:20 92 07/27/19 07:23 100.4 F H 86 18 127/71 92 07/27/19 03:17 98.1 F 74 17 123/64 91 07/27/19 00:29 99.1 F 65 18 128/64 93 07/26/19 19:07 100.3 F H 07/26/19 19:03 100.5 F H 76 18 133/63 93 07/26/19 15:43 98.1 F 72 16 109/68 95 07/26/19 12:18 93/54 07/26/19 12:00 108/66 07/26/19 11:44 97/60 07/26/19 11:14 98.4 F 66 16 88/42 95 Intake and Output 07/26/19 07/27/19 07/27/19 23:59 07:59 15:59 Intake Total 100 / 1712.5 100 / 100 Output Total 600 / 600 2800 / 3300 500 / 3300 Balance -500 / 1112.5 -2800 / -3200 -400 / -3200 Intake: IV Fluids 100 / 1612.5 100 / 100 Zosyn 3.375 GM In 0.9 % Sodium 100 / 100 100 / 100 Chloride (Mini-Bag +) 100 ML @ 25 mls/hr IVPB Q8HR [facility] Rx#: [id number] Oral 0 / 100 Output: Catheter 600 / 600 2800 / 3300 500 / 3300 Coude 600 / 600 Other: # Urine Diapers 1 Blood Glucose* 103 79 - Lab Result Diagrams: 07/27/19 04:03 07/27/19 04:03 Labs: Abnormal lab results WBC 11.9 K/mcL (4.3-11.1) H 07/27/19 04:03 RBC 2.71 M/mcL (4.19-5.50) L 07/27/19 04:03 Hgb 8.0 g/dL (12.9-16.9) L 07/27/19 04:03 Hct 24.9 % (37.5-50.1) L 07/27/19 04:03 Neutrophils # 9.1 K/mcL (1.6-8.9) H 07/27/19 04:03 ESR 112 mm/hr (0-10) H 07/25/19 14:28 PT 13.2 Seconds (9.4-12.1) H 07/25/19 14:28 VBG pO2 57 mmHg (25-50) H 07/25/19 15:43 Sodium 135 mEq/L (136-145) L 07/27/19 04:03 BUN 26 mg/dL (8-23) H 07/25/19 14:28 Creatinine 1.72 mg/dL (0.70-1.30) H 07/27/19 04:03 Est GFR ( Amer) 49 (> 60) L 07/27/19 04:03 Est GFR (Non-Af Amer) 40 (> 60) L 07/27/19 04:03 Glucose 133 mg/dL (70-105) H 07/25/19 14:28 POC Glucose 117 mg/dL (70-99) H 07/26/19 11:10 Hemoglobin A1c 7.3 % (-5.6) H 07/25/19 14:31 Iron 20 mcg/dL (65-175) L 07/26/19 03:07 % Saturation 10 % (20-55) L 07/26/19 03:07 Transferrin 148 mg/dL (203-362) L 07/26/19 03:07 AST 12 Units/L (13-39) L 07/25/19 14:28 Troponin I 0.06 ng/mL (< 0.04) H* 07/26/19 03:07 C-Reactive Protein 90 mg/L (Less than 10) H 07/25/19 14:28 Vitamin B12 204 pg/mL (250-1100) L 07/26/19 03:07 Beta-Hydroxybutyric Acd 0.28 mmol/L (0.02-0.27) H 07/25/19 15:31 Urine Protein 30 mg/dL (Neg-Trace) H 07/26/19 20:50 Vancomycin Trough 13 mcg/mL (5-10) H 07/27/19 08:12 Microbiology, Last 48 Hours 07/25/19 19:14 Wound Culture - Preliminary Left Third Toe Gram Negative Alexys 07/25/19 19:14 Anaerobic Culture - Preliminary Left Third Toe Culture is incubating. 07/25/19 14:31 Blood Culture - Preliminary Peripheral Venipuncture Culture is incubating and being continuously monitored for growth. Final report to follow. 07/25/19 14:28 Blood Culture - Preliminary Peripheral Venipuncture Culture is incubating and being continuously monitored for growth. Final report to follow. Consult Discharge Plan - Plan Referrals: Jessenia Self MD [Primary Care Provider] -
--- NOTE | 2019-07-27 11:14 | Podiatry Progress Note ---
Date of Encounter: 07/27/19 Time of Encounter: 10:00 - Assessment and Plan (1) Foot abscess Current Visit: Yes Status: Acute POD #1 s/p 1. Incision and drainage below fascia left 3rd toe 2. Left 3rd toe amputation per Luz PLAN: Surgical site healing as well as expected at this time Patient was scheduled for LLE angiogram today however due to AMS this was placed on hold until MRI completed No signs of ischemia noted to surgical line at this time No appearance of infection Wound culture prelim showing GNR WBC 11.9 and trending down Currently on vanc and zosyn Podiatry will continue to following Awaiting vascular intervention to optimize blood flow if possible Will continue to monitor site for any further complications Nurse reported lethary with administration of 10mg [place]- discontinued at this time Has toradol and PO tylenol for pain control Please use these first and if pain is not tolerable consider IV tylenol for pain control. Once stable will need to follow up with in podiatry office- please call and make appointment for less than 1 week following discharge. (2) Atherosclerosis of [place] arteries of extremities with gangrene, left leg Current Visit: Yes Status: Chronic EDUARDO tech preliminary. RT EDUARDO 0.64 indicating moderate arterial disease by tech data table. LT EDUARDO 0.36 indicating severe arterial disease by tech data table. Noted and vascular following and appreciated Awaiting vascular intervention Subjective Interval history: Patient POD #1 s/p 1. Incision and drainage below fascia left 3rd toe 2. Left 3rd toe amputation per Spoke with nurse this AM, reports patient AMS and being worked up for stroke. History of previous stroke following a heart cath 3 years ago. nurse reports hospitalist ordered a CT which was abnormal. Pending MRI however patient has a pacer so scan will be delayed. At bedside, patient does say hello to command however does not follow commands, not oriented to person place or time. Incoherent conversation. States yes when asked if his foot hurts. Family denies any fevers or chills. Objective - Vital Signs Vital Signs: Vital Signs Temp Pulse Resp BP Pulse Ox 07/27/19 11:04 99.2 F 71 14 97/48 94 07/27/19 08:20 92 07/27/19 07:23 100.4 F H 86 18 127/71 92 07/27/19 03:17 98.1 F 74 17 123/64 91 07/27/19 00:29 99.1 F 65 18 128/64 93 07/26/19 19:07 100.3 F H 07/26/19 19:03 100.5 F H 76 18 133/63 93 07/26/19 15:43 98.1 F 72 16 109/68 95 07/26/19 12:18 93/54 07/26/19 12:00 108/66 07/26/19 11:44 97/60 07/26/19 11:14 98.4 F 66 16 88/42 95 Intake and Output 07/26/19 07/27/19 07/27/19 23:59 07:59 15:59 Intake Total 100 / 1712.5 100 / 100 Output Total 600 / 600 2800 / 3300 500 / 3300 Balance -500 / 1112.5 -2800 / -3200 -400 / -3200 Intake: IV Fluids 100 / 1612.5 100 / 100 Zosyn 3.375 GM In 0.9 % Sodium 100 / 100 100 / 100 Chloride (Mini-Bag +) 100 ML @ 25 mls/hr IVPB Q8HR [facility] Rx#: [id number] Oral 0 / 100 Output: Catheter 600 / 600 2800 / 3300 500 / 3300 Coude 600 / 600 Other: # Urine Diapers 1 Blood Glucose* 103 79 - Exam Exam: CONSTITUTIONAL: awake however not oriented. VASCULAR: non palpable pulses DP/PT left and right. No edema. Cap refill <3sec, toes warm to touch. No calf pain with manual compression NEUROLOGICAL: intact sensation to light and moderate touch SKIN: Healing incision line to 3rd toe amputation site of the left foot. There is dry blood/scabbing noted to incision line without evidence of ischemia. Appears to be healing well given that blood flow is limited. no appearance of infection. no drainage. no warmth surrounding site. - Lab Result Diagrams: 07/27/19 04:03 07/27/19 04:03 Labs: Abnormal lab results WBC 11.9 K/mcL (4.3-11.1) H 07/27/19 04:03 RBC 2.71 M/mcL (4.19-5.50) L 07/27/19 04:03 Hgb 8.0 g/dL (12.9-16.9) L 07/27/19 04:03 Hct 24.9 % (37.5-50.1) L 07/27/19 04:03 Neutrophils # 9.1 K/mcL (1.6-8.9) H 07/27/19 04:03 ESR 112 mm/hr (0-10) H 07/25/19 14:28 PT 13.2 Seconds (9.4-12.1) H 07/25/19 14:28 VBG pO2 57 mmHg (25-50) H 07/25/19 15:43 Sodium 135 mEq/L (136-145) L 07/27/19 04:03 BUN 26 mg/dL (8-23) H 07/25/19 14:28 Creatinine 1.72 mg/dL (0.70-1.30) H 07/27/19 04:03 Est GFR ( Amer) 49 (> 60) L 07/27/19 04:03 Est GFR (Non-Af Amer) 40 (> 60) L 07/27/19 04:03 Glucose 133 mg/dL (70-105) H 07/25/19 14:28 POC Glucose 117 mg/dL (70-99) H 07/26/19 11:10 Hemoglobin A1c 7.3 % (-5.6) H 07/25/19 14:31 Iron 20 mcg/dL (65-175) L 07/26/19 03:07 % Saturation 10 % (20-55) L 07/26/19 03:07 Transferrin 148 mg/dL (203-362) L 07/26/19 03:07 AST 12 Units/L (13-39) L 07/25/19 14:28 Troponin I 0.06 ng/mL (< 0.04) H* 07/26/19 03:07 C-Reactive Protein 90 mg/L (Less than 10) H 07/25/19 14:28 Vitamin B12 204 pg/mL (250-1100) L 07/26/19 03:07 Beta-Hydroxybutyric Acd 0.28 mmol/L (0.02-0.27) H 07/25/19 15:31 Urine Protein 30 mg/dL (Neg-Trace) H 07/26/19 20:50 Vancomycin Trough 13 mcg/mL (5-10) H 07/27/19 08:12 Microbiology, Last 48 Hours 09/11/19 19:14 Wound Culture - Preliminary Left Third Toe Gram Negative Alexys 07/25/19 19:14 Anaerobic Culture - Preliminary Left Third Toe Culture is incubating. 07/25/19 14:31 Blood Culture - Preliminary Peripheral Venipuncture Culture is incubating and being continuously monitored for growth. Final report to follow. 07/25/19 14:28 Blood Culture - Preliminary Peripheral Venipuncture Culture is incubating and being continuously monitored for growth. Final report to follow. Consult Discharge Plan - Plan Referrals: Jessenia Self MD [Primary Care Provider] -
[2019-07-27] MEDS: Ringers Solution, Lactated 1,000 ML IVC SCH (11:43)
[2019-07-27] MEDS ORDERED: *HR* OxyCODONE Immed Rel 5 MG TABLET PO PRN (12:54)
[2019-07-27] MEDS: Insulin DETEMIR 100 UNIT/ML X5UNITS SQ SCH (19:41)
[2019-07-27] MEDS: Acetaminophen 325 MG TABLET PO PRN (20:33)
--- NOTE | 2019-07-27 20:40 | Vascular/Endovas Progress Note ---
Date of Encounter: 07/27/19 Time of Encounter: 17:00 - Assessment and plan (1) Atherosclerosis of [place] arteries of extremities with gangrene, left leg Status: Chronic The patient has evidence of severe left lower extremity peripheral vascular disease and moderate disease of the right lower extremity. He recently required a left toe amputation. He was scheduled for an angiogram, but due to his recent right hemispheric she will vascular accident is angiogram be postponed. Co ntinue with atherosclerotic risk factor reduction. The patient be reassessed next week to reconsider angiography if clinically stable. 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 This was documented by MRI. He is currently comfortable. He denies chest or shortness of breath. Vital Signs, Last 4 Hours Temp Pulse Resp BP Pulse Ox 07/27/19 20:05 99/59 07/27/19 19:23 99.1 F 66 17 93/54 96 - Physical Examination General: Present: No Apparent Distress Neck: Absent: JVD Cardiac: Present: Reg Rate and Rhythm Lungs: Present: Normal Breath Sounds Neuro: Present: Other (Altered mental status) Vascular: Present: Normal capillary refill, Pulse, absent (Pedal pulses absent bilaterally), Surgical incisions (Attention site appears to be healing). Absent: Edema Abdomen: Present: Soft, Non-tender Results 07/30/19 16:14 07/30/19 16:14 Lab Results, Last 24 hours 07/27/19 07/27/19 04:03 04:03 WBC 11.9 H Hgb 8.0 L Hct 24.9 L Plt Count 232 Sodium 135 L Potassium 3.6 Chloride 101 Carbon Dioxide 25 BUN 19 Creatinine 1.72 H Glucose 77 Calcium 8.7 Magnesium 1.8 Consult Discharge Plan - Plan Additional Instructions: Heel weight bearing only, wear surgical shoe when ambulating Follow up with podiatry clinic upon discharge Referrals: Jessenia Self MD [Primary Care Provider] -
[2019-07-28] MEDS: Piperacillin/Tazobactam 3.375 GM in 0.9 % Sodium Chloride Mini Bag 100 ML IVPB SCH ×4 (01:45→23:58)
[2019-07-28 05:05] LABS: Calcium 8.5 mg/dL (8.6-10.3); Chol/HDL Ratio 6.3 (0-4.9); Magnesium 1.9 mg/dL (1.6-2.6); Potassium 3.2 mEq/L (3.5-5.1)
[2019-07-28 05:44] LABS: Basophils % 0.3 %; Eosinophils # 0.4 K/mcL (0.0-0.6); Eosinophils % 3.3 %; Hematocrit 23.3 % (37.5-50.1); Hemoglobin 7.6 g/dL (12.9-16.9); Immature Granulocytes % 0.8 % (0-4); Lymphocytes # 1.2 K/mcL (0.6-4.6); Lymphocytes % 11.2 %; Mean Corpuscular HGB Conc 32.6 g/dL (31.6-35.5); Mean Corpuscular Hemoglobin 29.3 pg (28.0-33.3); Monocytes # 0.9 K/mcL (0.0-1.3); Monocytes % 8.1 %; Neutrophils # 8.1 K/mcL (1.6-8.9); Platelet Count 238 K/mcL (140-400); Red Blood Count 2.59 M/mcL (4.19-5.50); Red Cell Distribution Width 13.2 % (11.5-14.5); Segmented Neutrophils % 76.3 %; White Blood Count 10.6 K/mcL (4.3-11.1)
[2019-07-28] MEDS: *HR* Heparin 5,000 UNIT/ML VIAL SQ SCH ×2 (07:41→17:45)
[2019-07-28] MEDS: *HR* Acetylcysteine 20% 600 MG/3 ML ORAL SYRINGE PO SCH (07:45)
[2019-07-28] MEDS: Cyanocobalamin (B-12) 1,000 MCG TABLET PO SCH (07:45)
[2019-07-28] MEDS: Aspirin Enteric Coated 81 MG Tablet PO SCH (07:45)
[2019-07-28] MEDS: Cholecalciferol (D-3) 1,000 UNIT (25MCG) TABLET PO SCH (07:45)
[2019-07-28] MEDS: Ringers Solution, Lactated 1,000 ML IVC SCH ×3 (08:02→23:57)
[2019-07-28] MEDS: Insulin LISPRO 300 UNITS/3 ML VIAL SQ SCH ×3 (08:09→17:46)
--- NOTE | 2019-07-28 08:53 | Podiatry Progress Note ---
Date of Encounter: 07/28/19 Time of Encounter: 08:50 - Assessment and Plan (1) Gas gangrene Current Visit: Yes Status: Acute 1. In regards to the surgical site, he is progressing well s/p 3rd toe amputation. He had an apparent stroke following his surgery. He is stable at this time. I do believe he needs vascular intervention in order for the surgical site to heal and vascular is following. He is pending possible intervention once he is more stable following the stroke. No further surgical intervention planned at this time to the foot. He is at risk for loss of limb given his PVD. Will continue to monitor the foot for demarcation as the digital amputation was for infection source control. WBAT in surgical shoe with heel touch for transfers. Subjective Principal diagnosis: s/p left 3rd toe amputation Interval history: Patient resting comfortably in bed. He denies pain in his left foot. He had an apparent stroke following surgery. He is more alert and oriented today and his family states that he is doing better. Patient seen with hospitalist this AM. He has been NWB. Vascular procedure cancelled due to the recent stroke. Objective - Vital Signs Vital Signs: Vital Signs Temp Pulse Resp BP Pulse Ox 07/28/19 07:23 98.1 F 76 15 118/64 94 07/28/19 03:30 97.7 F 61 18 131/61 96 07/27/19 22:39 98.0 F 62 17 103/51 96 07/27/19 20:05 99/59 07/27/19 19:23 99.1 F 66 17 93/54 96 07/27/19 16:33 98.2 F 66 15 109/68 95 07/27/19 14:20 73 103/66 07/27/19 11:04 99.2 F 71 14 97/48 94 Intake and Output 07/27/19 07/28/19 07/28/19 23:59 07:59 15:59 Intake Total 100 / 1300 1100 / 2100 1000 / 2100 Output Total 1525 / 4825 350 / 350 Balance -1425 / -3525 750 / 1750 1000 / 1750 Intake: IV Fluids 100 / 1300 1100 / 2100 1000 / 2100 Lactated Ringers 1,000 ML @ 75 1000 / 2000 1000 / 2000 mls/hr IVC .[id number] IGGY Rx#: [id number] Zosyn 3.375 GM In 0.9 % Sodium 100 / 300 100 / 100 Chloride (Mini-Bag +) 100 ML @ 25 mls/hr IVPB Q8HR [facility], [facility]–1983 Rx#: [id number] Oral 0 / 0 Output: Urine 1000 / 1000 Catheter 525 / 3825 350 / 350 Other: Weight 82.95 kg Blood Glucose* 119 70 Patient Weight 07/28/19 23:59 Weight 82.95 kg - Exam Exam: Alert, oriented x2, no acute distress. Vascular: DP and PT non palpable. Skin temperature cool to touch distally. Capillary refill delayed to digits. Dermatology: Left 3rd toe amputation site with dried necrosis at the wound margins. Erythema improved. Musculoskeletal: s/p left 3rd toe amputation Muscle strength normal. Neuro: Sensations diminished to light touch bilateral lower extremity. - Lab Result Diagrams: 07/28/19 04:20 07/28/19 04:20 Labs: Abnormal lab results WBC 11.9 K/mcL (4.3-11.1) H 07/27/19 04:03 RBC 2.59 M/mcL (4.19-5.50) L 07/28/19 04:20 Hgb 7.6 g/dL (12.9-16.9) L 07/28/19 04:20 Hct 23.3 % (37.5-50.1) L 07/28/19 04:20 Neutrophils # 9.1 K/mcL (1.6-8.9) H 07/27/19 04:03 ESR 112 mm/hr (0-10) H 07/25/19 14:28 PT 13.2 Seconds (9.4-12.1) H 07/25/19 14:28 VBG pO2 57 mmHg (25-50) H 07/25/19 15:43 Sodium 134 mEq/L (136-145) L 07/28/19 04:20 Potassium 3.2 mEq/L (3.5-5.1) L 07/28/19 04:20 BUN 26 mg/dL (8-23) H 07/25/19 14:28 Creatinine 1.63 mg/dL (0.70-1.30) H 07/28/19 04:20 Est GFR ( Amer) 52 (> 60) L 07/28/19 04:20 Est GFR (Non-Af Amer) 43 (> 60) L 07/28/19 04:20 Glucose 69 mg/dL (70-105) L 07/28/19 04:20 POC Glucose 68 mg/dL (70-99) L 07/27/19 16:56 Hemoglobin A1c 7.3 % (-5.6) H 07/25/19 14:31 Calculated Osmolality 278 (280-300) L 07/28/19 04:20 Calcium 8.5 mg/dL (8.6-10.3) L 07/28/19 04:20 Iron 20 mcg/dL (65-175) L 07/26/19 03:07 % Saturation 10 % (20-55) L 07/26/19 03:07 Transferrin 148 mg/dL (203-362) L 07/26/19 03:07 AST 12 Units/L (13-39) L 07/25/19 14:28 Troponin I 0.06 ng/mL (< 0.04) H* 07/26/19 03:07 C-Reactive Protein 90 mg/L (Less than 10) H 07/25/19 14:28 Triglycerides 180 mg/dL (< 150) H 07/28/19 04:20 VLDL Cholesterol, Calc 36 mg/dL (< 31) H 07/28/19 04:20 HDL Cholesterol 20 mg/dL (40-59) L 07/28/19 04:20 Cholesterol/HDL Ratio 6.3 (0-4.9) H 07/28/19 04:20 Vitamin B12 204 pg/mL (250-1100) L 07/26/19 03:07 Beta-Hydroxybutyric Acd 0.28 mmol/L (0.02-0.27) H 07/25/19 15:31 Urine Protein 30 mg/dL (Neg-Trace) H 07/26/19 20:50 Vancomycin Trough 13 mcg/mL (5-10) H 07/27/19 08:12 Microbiology, Last 48 Hours 07/25/19 19:14 Wound Culture - Final Left Third Toe Enterobacter cloacae complex 07/25/19 19:14 Anaerobic Culture - Preliminary Left Third Toe Culture is incubating. Consult Discharge Plan - Plan Referrals: Jessenia Self MD [Primary Care Provider] -
[2019-07-28] MEDS: Nicotine 21 MG PATCH.TD24 TD SCH (10:52)
--- NOTE | 2019-07-28 11:46 | Nephrology Progress Note ---
Date of Encounter: 07/28/19 Time of Encounter: 11:45 - Assessment and Plan (1) Hypokalemia Current Visit: Yes Status: Acute (2) Acute encephalopathy Current Visit: Yes Status: Acute (3) Anemia Current Visit: Yes Status: Acute Qualifiers: Anemia type: B12 deficiency Vitamin B12 deficiency anemia type: other B12 deficiency Qualified Code(s): D51.8 - Other vitamin B12 deficiency anemias (4) CKD (chronic kidney disease) Current Visit: Yes Status: Acute Qualifiers: Chronic kidney disease stage: unspecified stage Qualified Code(s): N18.9 - Chronic kidney disease, unspecified (5) Diabetes mellitus Current Visit: Yes Status: Acute Qualifiers: Diabetes mellitus type: type 2 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 Looking at his creatinine trend this seems to be continued improvement. On looking at the records his urine output after Carter placement was about 3 L. Urology has evaluated and the patient has elected to continue an indwelling Carter which is probably appropriate. His creatinine went from 1.9-1.67-1.7 - 1.6 and I anticipate that it will improve now that his urine output is good. We do not have a baseline renal function in the records a vailable to me in the electronic system. Currently his renal function is much better than it was in the past. There is no barrier to discharge from a renal standpoint. If he is discharged she can follow-up in the renal clinic in the next 1-3 months with a renal function panel 1 week prior to his clinic visit. At that time we can see what his baseline renal function is. Will order potassium replacement. Subjective Principal diagnosis: s/p left 3rd toe amputation Interval history: Patient seen. No new complaint. Objective - Vital Signs Vital signs: Vital Signs Temp Pulse Resp BP Pulse Ox 07/28/19 11:36 97.9 F 64 16 107/64 97 07/28/19 07:23 98.1 F 76 15 118/64 94 07/28/19 03:30 97.7 F 61 18 131/61 96 07/27/19 22:39 98.0 F 62 17 103/51 96 07/27/19 20:05 99/59 07/27/19 19:23 99.1 F 66 17 93/54 96 07/27/19 16:33 98.2 F 66 15 109/68 95 07/27/19 14:20 73 103/66 Intake and Output 07/27/19 07/28/19 07/28/19 23:59 07:59 15:59 Intake Total 100 / 1300 1100 / 2460 1360 / 2460 Output Total 1525 / 4825 350 / 350 Balance -1425 / -3525 750 / 2110 1360 / 2110 Intake: IV Fluids 100 / 1300 1100 / 2100 1000 / 2100 Lactated Ringers 1,000 ML @ 75 1000 / 2000 1000 / 2000 mls/hr IVC .[id number] IGGY Rx#: [id number] Zosyn 3.375 GM In 0.9 % Sodium 100 / 300 100 / 100 Chloride (Mini-Bag +) 100 ML @ 25 mls/hr IVPB Q8HR IGGY Rx#: [id number] Oral 0 / 360 360 / 360 Output: Urine 1000 / 1000 Catheter 525 / 3825 350 / 350 Other: Meal Breakfast Percent of Meal Consumed 100% Weight 82.95 kg Blood Glucose* 119 70 160 Patient Weight 07/28/19 23:59 Weight 82.95 kg - General Appearance General appearance: Present: well-developed, well-nourished EENT: Present: ATNC Cardiology: Present: regular rate Psychiatric: Present: mood/affect appropriate - Lab 07/28/19 04:20 07/28/19 04:20 Most recent lab results 07/28/19 04:20 Calcium 8.5 L Magnesium 1.9 Consult Discharge Plan - Plan Referrals: Jessenia Self MD [Primary Care Provider] -
--- NOTE | 2019-07-28 13:50 | Internal Med Progress Note ---
Hospitalist Progress Note - Encounter Date of Encounter: 07/28/19 Time of Encounter: 08:00 - Subjective Interval History: Mr Swanson is much alert and oriented today. MRI revealed multiple infarcts in the right frontal lobe. His surgical incision wound appears to be healing. His carotid duplex revealed 40-45% stenosis of the left ICA with bilateral plaques of notes to yesterday's today the patient had stenting to bilateral carotid artery years ago GEN: Denies fever, chills or malaise HEENT: Denies headache blurriness, or dysphagia RESP: Denies SOB or cough CV: Denies chest pain or palpitations GI: Denies Nausea, vomiting, diarrhea or constipation Reviewed current in hospital medications with modifications see orders Reviewed Routine labs - Exam Vitals: Temp Pulse Resp BP Pulse Ox 97.9 F 64 16 107/64 97 07/28/19 11:36 07/28/19 11:36 07/28/19 11:36 07/28/19 11:36 07/28/19 11:36 Exam: GEN: NAD, A&O x3 to self, place, and president . Pleasant and conversant, at the bedside SKIN: [place] warm acyanotic not jaundice HEART: RRR, no murmurs LUNGS: Diminished but appears CTA no wheeze or crackles, overall non labored ABDOMEN; Soft, non tender or distended, BS x 4 normactive EXT: No LE edema, Pedal pulses 1+, radial pulses 2+ left foot toe surgical site appears to be healing third toe surgically absent PSYCH: Mood and affect is appropriate - Assessment and Plan (1) CVA (cerebral vascular accident) Current Visit: Yes Status: Acute Assessment and Plan: Patient does not have any focal deficit at present, goal is for secondary prevention, he was already on Plavix and aspirin Lipitor 40 mg added although his lipid profile was remarkable for LDL cholesterol of 69 total cholesterol of 125. Carotid duplex revealed 40-59% stenosis of the left ICA with bilateral plaque. His echocardiogram reveals EF of 50% no evidence of PFO with agitated saline. Due to concern for embolic stroke Dr. Ng neurologist recommends transesophageal echocardiogram once the patient is more stable MRI head : 1. Multiple acute right frontal lobe infarctions. No associated hemorrhage. 2. Parenchymal volume loss and sequela of moderate chronic microvascular ischemic changes. Old lacunar infarctions in the infratentorial and supratentorial brain parenchyma. 3. 8 mm soft tissue nodule in the superficial lobe of the right parotid gland may represent intraparotid lymph node versus primary parotid neoplasm. (2) Acute encephalopathy Current Visit: Yes Status: Acute Assessment and Plan: Improving patient a more alert oriented today continue to clinically correlate in the setting of acute stroke, sepsis. CT of the brain yesterday was inconclusive we will obtain MRI of the brain due to concerns of possible acute stroke his ammonia level was within normal limits. Patient is required one-to-one supervision. Patient has been febrile overnight hence sepsis is likely the underlying reason for his altered mentation. He was already on antibiotics status post presentation with gas gangrene of his 3rd toe. We will consider monitoring clinically correlate this morning family members at his bedside-2 sisters, brother and still states that he is not back to baseline (3) Sepsis Current Visit: Yes Status: Acute Assessment and Plan: Improvement- encephalopathy much improved, leukocytosis resolved he is afebrile, blood culture is negative so far but wound culture positive for Enterobacter cloacae susceptible to Zosyn would de-escalate antimicrobial therapy and discontinue vancomycin Of note Patient is meeting criteria for sepsis given the febrile response leukocytosis overnight with the likely source being his presenting with the gas gangrene of the third toe, initial blood culture on admission has been negative for 2 days patient was already started on empiric antibiotics with vancomycin pharmacy to dose given his CKD and Zosyn hence repeating the blood culture today will be un-yielding. His surgical wound culture does reveal gram-negative radha will await blood cultures to finalize before descalating antibiotics (4) Diabetes mellitus Current Visit: Yes Status: Acute Assessment and Plan: A1c 7.3, insulin per protocol. Glycemic control indicated for proper wound healing, on basal and short acting insulin, POC ranged from 68-83 but in the setting of acute encephalopathy and poor oral intake, since he now alert and oriented no dose changes (5) Urinary retention Current Visit: Yes Status: Acute Assessment and Plan: Patient with obstructive uropathy that was being worked up as an outpatient, urine output improved since insertion of Carter urology consult is pending appreciated input (6) Open fracture Current Visit: Yes Status: Acute Assessment and Plan: Status post incision and drainage below the fascia of the left first toe, left third toe amputation. Stable postop day 3, Ongoing plan per podiatry team appreciate input, Of note- CT of the left foot reveals subacute fracture of the left toe distal to the phalanx with focus of gas. (7) Gas gangrene Current Visit: Yes Status: Acute Assessment and Plan: Wound culture revealed gram-negative rods continue current antibiotic therapy for now pending blood cultures and now Enterobacter clocae susceptible to Zosyn will DC vancomycin Status post incision and drainage below the fascia of the left first toe, left third toe amputation. Stable postop day3, of note CT of the left foot reveals subacute fracture of the left toe distal to the phalanx with focus of gas. He was evaluated by podiatry team we appreciate their input is planned for OR today, on examination appears to have necrotic left 3rd toe with black eschar. Suspect underlying PAD given his tobacco use EDUARDO ordered for tomorrow (8) PAD (peripheral artery disease) Current Visit: Yes Status: Acute Assessment and Plan: Patient was evaluated by the vascular surgeon appreciate input he was planned for arteriogram today. Appears this will be postponed pending his workup for possible acute stroke, patient MRI revealed multiple right frontal lobe infarct. He will be planned for vascular intervention sometime next week preliminary report of the ankle brachial index as follows: RT EDUARDO 0.64 indicating moderate arterial disease by tech data table. LT EDUARDO 0.36 indicating severe arterial disease by tech data table. Vascular surgery consult pending notified vascular surgeon via OR nurse this afternoon (9) Troponin I above reference range Current Visit: Yes Status: Acute Assessment and Plan: Patient still denies chest pain this morning. Troponin 0.06 in the setting of CKD, denies chest pain trend 0.05-0.06. Patient will benefit from either ischemic workup inpatient after his been evaluated by vascular surgeon for his PAD given his critical limb ischemia on an outpatient (10) CKD (chronic kidney disease) Current Visit: Yes Status: Acute Assessment and Plan: Serum creatinine 1.72-1.63. He is being followed by both urology and nephrology appreciate the input Of note-He was hospitalized in May 2019 for acute renal failure attributed to obstructive uropathy serum creatinine today Is much improved compared to June 02 we will trend, check PSA, monitor I's and O's equally denies any urinary difficulties, serum creatinine improved from 1.92-1.67, only 0.3 L out so far continue to monitor may be due to bladder scan if urine output does not improve by tomorrow (11) DVT prophylaxis Current Visit: Yes Status: Acute Assessment and Plan: Heparin subcutaneous (12) Tobacco dependency Current Visit: Yes Status: Acute Assessment and Plan: Encouraged tobacco cessation will order nicotine patch and gum, given a diagnosis of PAD with with severe disease of the left lower extremity patient was strongly advised him encouraged to cease tobacco use (13) Hypotension Current Visit: Yes Status: Acute Assessment and Plan: Resolved responded to IV hydration likely due to sepsis Patient has been running low blood pressure in the setting of narcotic analgesia will start him on IV continuous hydration, blood pressure improved with the IV bolus due to concerns for sepsis. His urine output has been oliguric (14) Anemia Current Visit: Yes Status: Acute Assessment and Plan: Hemoglobin has trended down from 9.4 on admission to 7.6 although it is setting of volume resuscitation and recent surgery workup so far reveal B12 deficiency will monitor clinically correlate may need to transfuse in the next 24 hours given his overall comorbid condition - Time Spent with Patient Total time spent is greater than 50% in coordination of care (as documented) at patient's floor/unit and/or counseling patient: Internal Medicine: Result - Labs CBC & Chem 7: 07/28/19 04:20 07/28/19 04:20 Labs: Short CBC 07/28/19 Range/Units 04:20 WBC 10.6 (4.3-11.1) K/mcL Hgb 7.6 L (12.9-16.9) g/dL Hct 23.3 L (37.5-50.1) % Plt Count 238 (140-400) K/mcL Neutrophils # 8.1 (1.6-8.9) K/mcL BMP 07/28/19 04:20 Sodium 134 L Potassium 3.2 L Chloride 98 Carbon Dioxide 25 BUN 18 Creatinine 1.63 H Glucose 69 L Calcium 8.5 L - ABG Interpretation ABG results: PT/INR, D-dimer PT 13.2 Seconds (9.4-12.1) H 07/25/19 14:28 - Impressions Impressions Brain MRI 07/27/19 15:58 IMPRESSION: 1. Multiple acute right frontal lobe infarctions. No associated hemorrhage. 2. Parenchymal volume loss and sequela of moderate chronic microvascular ischemic changes. Old lacunar infarctions in the infratentorial and supratentorial brain parenchyma. 3. 8 mm soft tissue nodule in the superficial lobe of the right parotid gland may represent intraparotid lymph node versus primary parotid neoplasm. The findings were sent to the Radiology Results Communication Center at 4:02 pm on 07/27/2019to be communicated to a licensed caregiver. D/ / 07/27/2019 16:29:26 Blayne Caldera MD / [email or web address] Interpreting Provider: Blayne Caldera MD Echocardiogram 07/27/19 23:09 Impressions: LVEF 50%. Moderate left ventricular diastolic dysfunction. LV chamber size upper limits of normal. Normal right ventricular structure and function. Moderate mitral regurgitation. A device lead was visualized in the right atrium and right ventricle. No evidence of PFO with agitated saline contrast. No pulmonary hypertension based on TR signal obtained. Left Ventricular Wall Motion: Rest Echo Findings The mid inferior, basal inferior and basal inferior lateral rucker were hypokinetic. All other wall segments showed normal motion. Findings: Study Quality * Technically adequate exam. ECG Findings * Normal sinus rhythm. Left Ventricle * LVEF 50%. * Moderate left ventricular diastolic dysfunction. * LV chamber size upper limits of normal. Right Ventricle * Normal right ventricular structure and function. Left Atrium * Moderately dilated left atrium. Right Atrium * Normal right atrial size. Aortic Valve * No aortic stenosis. * Aortic valve leaflet morphology not well visualized. * Trace aortic regurgitation. Mitral Valve * Normal mitral valve structure. * No mitral stenosis. * Moderate mitral regurgitation. Tricuspid Valve * Tricuspid valve not well visualized. * Estimated RA pressure is 3 mmHg. Pulmonic Valve * Pulmonic valve is not well visualized. * No pulmonic stenosis. * No pulmonic regurgitation. Pulmonary Artery * Pulmonary artery not well visualized. Aorta * Normally sized aortic root. Pericardium * There is no pericardial effusion present. Device lead * A device lead was visualized in the right atrium and right ventricle. Interatrial Septum * No evidence of PFO by color Doppler. * No evidence of PFO with agitated saline contrast. IVC * Normal IVC dimensions and inspiratory collapse. Consult Discharge Plan - Plan Referrals: Jessenia Self MD [Primary Care Provider] - (1) CVA (cerebral vascular accident) Qualifiers: CVA mechanism: embolism Precerebral and cerebral artery: unspecified cerebral artery Qualified Code(s): I63.40 - Cerebral infarction due to embolism of unspecified cerebral artery (3) Sepsis Qualifiers: Sepsis type: sepsis due to unspecified organism Sepsis acute organ dysfunction status: with acute organ dysfunction Severe sepsis acute organ dysfunction type: encephalopathy Severe sepsis shock status: without septic shock Qualified Code(s): A41.9 - Sepsis, unspecified organism; R65.20 - Severe sepsis without septic shock; G93.40 - Encephalopathy, unspecified (4) Diabetes mellitus Qualifiers: Diabetes mellitus type: type 2 Diabetes mellitus half-way insulin use: without half-way use Diabetes mellitus complication status: with hypoglycemia Diabetes mellitus complication detail: without coma Qualified Code(s): E11.649 - Type 2 diabetes mellitus with hypoglycemia without coma (10) CKD (chronic kidney disease) Qualifiers: Chronic kidney disease stage: unspecified stage Qualified Code(s): N18.9 - Chronic kidney disease, unspecified (14) Anemia Qualifiers: Anemia type: B12 deficiency Vitamin B12 deficiency anemia type: other B12 deficiency Qualified Code(s): D51.8 - Other vitamin B12 deficiency anemias
--- NOTE | 2019-07-28 16:49 | Neurology - Consult Note ---
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 MRI of the brain showed acute signal changes on diffusion-weighted images however, ADC map may indicate subacute nature of these cerebral infarcts. Due to ongoing sepsis secondary to third toe infection I would recommend transesophageal echocardiogram to evaluate the source emboli from a cardiac sources. Would however, not recommend anticoagulation therapy unless definitive source of emboli can be identified. There is also concern of infectious endocarditis due to ongoing history of sepsis therefore no anticoagulation therapy will be recommended at this moment. Would agree to keep him on combination of aspirin and Plavix as secondary stroke prevention and continue statin therapy. Please continue medical and supportive care and neurology will certainly follow Qualifiers: CVA mechanism: embolism Precerebral and cerebral artery: unspecified cerebral artery Qualified Code(s): I63.40 - Cerebral infarction due to embolism of unspecified cerebral artery History of Present Illness Chief complaint: Altered mental status and abnormal MRI of the brain HPI: Mr. Swanson is a 64 year old male with past medical history significant for chronic kidney disease, diabetes, tobacco abuse, hyperuricemia who was initially admitted on 07/25/2019 to the hospital due to infected third toe on the left side. The patient underwent third toe amputation and was treated with multiple antibiotics due to sepsis. However, on 07/26/2019 the patient was found to have altered mental status from his baseline therefore a stroke workup was ordered. Initial CT of the head showed no acute intracranial abnormality. However, an MRI of the brain that was completed yesterday demonstrated presence of multiple acute ischemic infarct involving the right hemisphere, involving parasagittal high right frontal lobe, right frontal periventricular white matter anteriorly and laterally concerning for embolic phenomenon. However, patient clinically has no focal motor weakness. His mental status also significantly improved to day. Patient has no significant speech difficulty. Patient completed echocardiogram and it showed normal left ventricular ejection fraction, no significant valvular disease, no regional wall motion abnormality, no evidence of PFO. Patient is a currently reporting no significant neurological discomforts. He feels much better than few days ago. He reports no significant headaches. Currently the patient has no fever and the no longer having leukocytosis. Blood culture is negative. Past Med Surg Social Fam HX - Past Medical History Medical history: CVA, diabetes, hyperlipidemia, hypertension Psychiatric history: no psych history - Past Surgical History Surgical History: appendectomy Additional surgical history: neck surgery - Social History Smoking Status: Current every day smoker Packs per day: 1/2 Smokeless Tobacco Status: No Alcohol use: none Drug use: none - Family History Father Hx Family Cardiac Disorders: Yes Hx Family Cancer: Yes Mother Hx Family Cardiac Disorders: Yes Hx Family Cancer: Yes Medications and Allergies Aspirin [Comal Aspirin EC] 81 mg PO DAILY 06/07/19 [History] Carvedilol 12.5 mg PO BID 06/07/19 [History] Clopidogrel [Plavix] 75 mg PO DAILY 06/07/19 [History] glipiZIDE [Glipizide] 10 mg PO BID 06/07/19 [History] Allopurinol [Zyloprim 100 MG] 100 mg PO DAILY 07/25/19 [History] Furosemide [Lasix] 40 mg PO BID 07/25/19 [History] Omeprazole [PriLOSEC] 20 mg PO DAILY 07/25/19 [History] Cholecalciferol (Vitamin D3) [Vitamin D] 5,000 unit PO DAILY 07/26/19 [History] Allergy/AdvReac Type Severity Reaction Status Date / Time No Known Allergies Allergy Verified 06/21/19 08:20 All Systems: The remainder of the systems were reviewed and are negative - Constitutional Constitutional ROS IM: anorexia (yes), chills (no), daytime sleepiness (no), fatigue (yes), fever(s) (no) - Nose, Mouth, Throat Nose, mouth and throat: abnormal hearing (no), dental pain (no), disequilibrium (no) - Cardiovascular Cardiovascular ROS IM: chest pain (no), chest pain at rest (no), chest pain with activity (no) - Respiratory Respiratory IM: cough (no), dyspnea (no), hemoptysis (no) - Gastrointestinal Gastrointestinal: abdominal pain (no), change in bowel habits (no) - Musculoskeletal Musculoskeletal ROS IM: abnormal gait (no), arthralgias (no) - Neurological Neurological ROS: abnormal gait (no), abnormal hearing (no), abnormal movements (no), abnormal speech (no), confusion (yes), convulsions (no), dizziness (no), focal weakness (no), frequent falls (no) - Psychiatric Psychiatric general PM: abnormal sleep pattern (no), anhedonia (no), anxiety (no) - Endocrine Endocrine IM: change in body appearance, deeping of the voice Physical Examination - Vital Signs Vital Signs: Initial Vital Signs Temp Pulse Resp BP Pulse Ox 98.6 F 54 16 73/38 99 07/25/19 13:54 07/25/19 13:54 07/25/19 13:54 07/25/19 13:54 07/25/19 13:54 Results - Laboratory Findings CBC and BMP: 07/28/19 04:20 07/28/19 04:20 Abnormal lab findings: Abnormal lab results WBC 11.9 K/mcL (4.3-11.1) H 07/27/19 04:03 RBC 2.59 M/mcL (4.19-5.50) L 07/28/19 04:20 Hgb 7.6 g/dL (12.9-16.9) L 07/28/19 04:20 Hct 23.3 % (37.5-50.1) L 07/28/19 04:20 Neutrophils # 9.1 K/mcL (1.6-8.9) H 07/27/19 04:03 ESR 112 mm/hr (0-10) H 07/25/19 14:28 PT 13.2 Seconds (9.4-12.1) H 07/25/19 14:28 VBG pO2 57 mmHg (25-50) H 07/25/19 15:43 Sodium 134 mEq/L (136-145) L 07/28/19 04:20 Potassium 3.2 mEq/L (3.5-5.1) L 07/28/19 04:20 BUN 26 mg/dL (8-23) H 07/25/19 14:28 Creatinine 1.63 mg/dL (0.70-1.30) H 07/28/19 04:20 Est GFR ( Amer) 52 (> 60) L 07/28/19 04:20 Est GFR (Non-Af Amer) 43 (> 60) L 07/28/19 04:20 Glucose 69 mg/dL (70-105) L 07/28/19 04:20 POC Glucose 68 mg/dL (70-99) L 07/27/19 16:56 Hemoglobin A1c 7.3 % (-5.6) H 07/25/19 14:31 Calculated Osmolality 278 (280-300) L 07/28/19 04:20 Calcium 8.5 mg/dL (8.6-10.3) L 07/28/19 04:20 Iron 20 mcg/dL (65-175) L 07/26/19 03:07 % Saturation 10 % (20-55) L 07/26/19 03:07 Transferrin 148 mg/dL (203-362) L 07/26/19 03:07 AST 12 Units/L (13-39) L 07/25/19 14:28 Troponin I 0.06 ng/mL (< 0.04) H* 07/26/19 03:07 C-Reactive Protein 90 mg/L (Less than 10) H 07/25/19 14:28 Triglycerides 180 mg/dL (< 150) H 07/28/19 04:20 VLDL Cholesterol, Calc 36 mg/dL (< 31) H 07/28/19 04:20 HDL Cholesterol 20 mg/dL (40-59) L 07/28/19 04:20 Cholesterol/HDL Ratio 6.3 (0-4.9) H 07/28/19 04:20 Vitamin B12 204 pg/mL (250-1100) L 07/26/19 03:07 Beta-Hydroxybutyric Acd 0.28 mmol/L (0.02-0.27) H 07/25/19 15:31 Urine Protein 30 mg/dL (Neg-Trace) H 07/26/19 20:50 Vancomycin Trough 16 mcg/mL (5-10) H 07/28/19 08:58 - Diagnostic Findings Additional findings: MRI OF THE BRAIN WITHOUT CONTRAST 07/27/2019 3:56 pm TECHNIQUE: Multiplanar multisequence MRI of the brain was performed without the administration of intravenous contrast. COMPARISON: Head CT 07/26/2019 HISTORY: ORDERING SYSTEM PROVIDED HISTORY: abnormal CT head during work up for acute encephal Altered mental status. Drowsiness. Acute symptoms. Initial encounter. FINDINGS: INTRACRANIAL STRUCTURES/VENTRICLES: There are foci of diffusion restriction within the parasagittal high right frontal lobe measuring 1.1 cm as well as right frontal periventricular white matter anteriorly and laterally. Associated T2/FLAIR hyperintense signal. No mass effect or midline shift. No acute intracranial hemorrhage. Diffuse parenchymal volume loss with enlargement of the ventricles and cerebral sulci. Periventricular, subcortical, and pontine white matter T2/FLAIR hyperintense signal. Old lacunar infarction in the right hemipons as well as basal ganglia and thalami bilaterally. Additional old lacunar infarctions in the cerebella bilaterally. The sellar/suprasellar regions appear unremarkable. The normal signal voids within the major intracranial vessels appear maintained. ORBITS: The visualized portion of the orbits demonstrate no acute abnormality. SINUSES: The visualized paranasal sinuses and mastoid air cells are well aerated. BONES/SOFT TISSUES: The bone marrow signal intensity appears normal. The soft tissues demonstrate no acute abnormality. 8 mm soft tissue nodule in the superficial lobe of the right parotid gland. MR/MR head/brain wo con IMPRESSION: 1. Multiple acute right frontal lobe infarctions. No associated hemorrhage. 2. Parenchymal volume loss and sequela of moderate chronic microvascular ischemic changes. Old lacunar infarctions in the infratentorial and supratentorial brain parenchyma. 3. 8 mm soft tissue nodule in the superficial lobe of the right parotid gland may represent intraparotid lymph node versus primary parotid neoplasm. The findings were sent to the [facility]iology [facility] at 4:02 pm on 07/27/2019to be communicated to a licensed caregiver. D/ / 07/27/2019 16:29:26 Blayne Caldera MD / deondre Interpreting Provider: Blayne Caldera MD /EV echo with saline Impressions: LVEF 50%. Moderate left ventricular diastolic dysfunction. LV chamber size upper limits of normal. Normal right ventricular structure and function. Moderate mitral regurgitation. A device lead was visualized in the right atrium and right ventricle. No evidence of PFO with agitated saline contrast. No pulmonary hypertension based on TR signal obtained. CT OF THE HEAD WITHOUT CONTRAST 07/26/2019 6:34 pm TECHNIQUE: CT of the head was performed without the administration of intravenous contrast. Dose modulation, iterative reconstruction, and/or weight based adjustment of the mA/kV was utilized to reduce the radiation dose to as low as reasonably achievable. COMPARISON: None. HISTORY: ORDERING SYSTEM PROVIDED HISTORY: acute encephalopathy FINDINGS: BRAIN/VENTRICLES: Motion artifact examination is seen which markedly limits the exam despite repeating the exam. Generalized cerebral and cerebellar atrophy. Moderate periventricular white matter hypodensity is seen bilaterally. Hypodensity at the left cerebellar hemisphere, likely reflecting sequela of prior ischemic change. Mild dilatation of the ventricles, likely a consequence of atrophy. ORBITS: The visualized portion of the orbits demonstrate no acute abnormality. SINUSES: The visualized paranasal sinuses and mastoid air cells demonstrate no acute abnormality. SOFT TISSUES/SKULL: 8 mm nodule is seen within the right parotid gland. CT/CT head/brain wo con IMPRESSION: Motion limited examination, demonstrating atrophy, small vessel ischemic disease, and sequela of prior left cerebellar infarct. If patient has persistent symptoms, short-term interval follow-up when patient is better able to tolerate the exam may be helpful. 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 D/ / Maurice Santiago MD / Maurice Santiago MD Interpreting Provider: Maurice Santiago MD Consult Discharge Plan - Plan Referrals: Jessenia Self MD [Primary Care Provider] -
[2019-07-28] MEDS: Insulin DETEMIR 100 UNIT/ML X5UNITS SQ SCH (20:43)
[2019-07-29] MEDS: *HR* Heparin 5,000 UNIT/ML VIAL SQ SCH ×2 (05:50→22:29)
[2019-07-29 07:06] LABS: Basophils # 0.1 K/mcL (0.0-0.2); Basophils % 0.6 %; Eosinophils # 0.3 K/mcL (0.0-0.6); Eosinophils % 2.3 %; Hematocrit 23.2 % (37.5-50.1); Hemoglobin 7.4 g/dL (12.9-16.9); Immature Granulocytes % 0.9 % (0-4); Lymphocytes # 1.1 K/mcL (0.6-4.6); Lymphocytes % 9.3 %; Mean Corpuscular HGB Conc 31.9 g/dL (31.6-35.5); Mean Platelet Volume 9.9 fL (9.4-12.4); Monocytes # 0.8 K/mcL (0.0-1.3); Monocytes % 6.2 %; Neutrophils # 9.9 K/mcL (1.6-8.9); Platelet Count 273 K/mcL (140-400); Red Blood Count 2.55 M/mcL (4.19-5.50); Red Cell Distribution Width 13.3 % (11.5-14.5); Segmented Neutrophils % 80.7 %; White Blood Count 12.2 K/mcL (4.3-11.1)
[2019-07-29 07:27] LABS: Calcium 8.7 mg/dL (8.6-10.3)
[2019-07-29] MEDS ORDERED: Aminoglycoside Consult 1 EACH MC ONE (07:32)
--- NOTE | 2019-07-29 08:51 | Nephrology Progress Note ---
Date of Encounter: 07/29/19 Time of Encounter: 08:47 - Assessment and Plan (1) COLETTE (acute kidney injury) Current Visit: No Status: Acute The patient has acute kidney injury that seems to be secondary to obstructive uropathy. Looking at his creatinine trend there has been consistent improvement. Currently his renal function is much better than it was in the past. There is no barrier to discharge from a renal standpoint. If he is discharged she can follow-up in the renal clinic in the next 1-3 months with a renal function panel 1 week prior to his clinic visit. At that time we can see what his baseline renal function is. Potassium is normal. Thank you for this interesting consult. At this time [facility] will sign off. The patient should follow-up with [facility] 1-3 months after discharge. Should you have any questions or concerns please free to contact us or reconsult us. (2) Hypokalemia Current Visit: Yes Status: Acute (3) Acute encephalopathy Current Visit: Yes Status: Acute (4) Anemia Current Visit: Yes Status: Acute Qualifiers: Anemia type: B12 deficiency Vitamin B12 deficiency anemia type: other B12 deficiency Qualified Code(s): D51.8 - Other vitamin B12 deficiency anemias (5) CKD (chronic kidney disease) Current Visit: Yes Status: Acute Qualifiers: Chronic kidney disease stage: unspecified stage Qualified Code(s): N18.9 - Chronic kidney disease, unspecified (6) Diabetes mellitus Current Visit: Yes Status: Acute Qualifiers: Diabetes mellitus type: type 2 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 No new complaint. Objective - Vital Signs Vital signs: Vital Signs Temp Pulse Resp BP Pulse Ox 07/29/19 07:30 100.1 F H 72 10 133/76 96 07/29/19 04:25 97.4 F L 61 17 131/71 96 07/28/19 18:51 98.4 F 83 17 103/61 94 07/28/19 16:29 99.1 F 64 16 138/65 97 07/28/19 11:36 97.9 F 64 16 107/64 97 Intake and Output 07/28/19 07/29/19 07/29/19 23:59 07:59 15:59 Intake Total 1100 / 3660 Output Total 450 / 800 650 / 650 Balance 650 / 2860 -650 / -650 Intake: IV Fluids 1100 / 3300 Lactated Ringers 1,000 ML @ 75 1000 / 3000 mls/hr IVC .[id number] IGGY Rx#: [id number] Zosyn 3.375 GM In 0.9 % Sodium 100 / 300 Chloride (Mini-Bag +) 100 ML @ 25 mls/hr IVPB Q8HR IGGY Rx#: [id number] Output: Catheter 450 / 800 650 / 650 Other: Blood Glucose* 138 102 - General Appearance General appearance: Present: well-developed, well-nourished EENT: Present: ATNC Cardiology: Present: regular rate Neurologic: Present: alert and oriented x3 Psychiatric: Present: mood/affect appropriate - Lab 07/29/19 06:40 07/29/19 06:40 Most recent lab results 07/29/19 06:40 Calcium 8.7 Magnesium 2.0 Consult Discharge Plan - Plan Referrals: Jessenia Self MD [Primary Care Provider] -
[2019-07-29] MEDS ORDERED: 0.9 % Sodium Chloride 250 ML IVC SCH (09:30)
--- NOTE | 2019-07-29 09:51 | Internal Med Progress Note ---
Hospitalist Progress Note - Encounter Date of Encounter: 07/29/19 Time of Encounter: 08:00 - Subjective Interval History: Mr Swanson overnight had febrile response overnight and has leukocytosis, given his recent history of stroke, sepsis was initially improving a logical explanation will be aspiration versus atelectasis, although he denies any dysphagia he has was always been at his bedside stated that patient to seem to have some choking episodes. Discussed also with patient and given that his hemoglobin has steadily dropped with initial laboratory workup suggestive of vitamin B deficiency, both with concerns for possible underlying insidious GI bleed coupled with the planned procedures for next week he might benefit from blood transfusion. They agreed to transfusion GEN: Denies fever, chills or malaise HEENT: Denies headache blurriness, or dysphagia RESP: Denies SOB or cough CV: Denies chest pain or palpitations GI: Denies Nausea, vomiting, diarrhea or constipation Reviewed current in hospital medications with modifications see orders Reviewed Routine labs - Exam Vitals: Temp Pulse Resp BP Pulse Ox 100.1 F H 72 10 133/76 96 07/29/19 07:30 07/29/19 07:30 07/29/19 07:30 07/29/19 07:30 07/29/19 07:30 Exam: GEN: NAD, A&O x3 to self, place, and president but never to year. Pleasant and conversant, at the bedside SKIN: Fair [place] warm acyanotic not jaundice HEART: RRR, no murmurs LUNGS: Diminished with crackles no wheeze, overall non labored ABDOMEN; Soft, non tender or distended, BS x 4 normactive EXT: No LE edema, Pedal pulses 1+, radial pulses 2+ left foot dressing clean dry and intact PSYCH: Mood and affect is appropriate - Assessment and Plan (1) Sepsis Current Visit: Yes Status: Acute Assessment and Plan: Initially improving as such his antimicrobial therapy was de-escalated from vancomycin and Zosyn to just Zosyn based on surgical wound cultures and sensitivity which grew Enterobacter cloacae sensitive to Zosyn. Today patient is febrile overnight and has mild leukocytosis. Given the history of acute stroke aspiration is of concern although he just denies dysphagia thinks he has some Intermittent episodes of choking. We will make patient nothing by mouth pending speech evaluation. Obtain chest x-ray to rule out infiltrates versus atelectasis. Clinically he appears to be much improved. the likely source being his presenting with the gas gangrene of the third toe, initial blood culture on admission has been negative for 2 days patient was already started on empiric antibiotics with vancomycin pharmacy to dose given his CKD and Zosyn hence repeating the blood culture today will be un-yielding. His surgical wound culture does reveal gram-negative radah will await blood cultures to finalize before descalating antibiotics (2) Anemia Current Visit: Yes Status: Acute Assessment and Plan: Hemoglobin has trended down from 9.4 on admission to 7.6 although it is setting of volume resuscitation and recent surgery workup so far reveal B12 deficiency will monitor clinically correlate may need to transfuse in the next 24 hours given his overall comorbid condition, following this morning 7.4 given to his planned for vascular procedure in the upcoming days coupled with his steady decline hemoglobin suspect insidious GI bleed of note he already has vitamin B deficiency for which she is currently being treated will empirically transfuse 2 units packed red blood cell to be typed and crossed this was discussed with the patient and his and he agreed to blood transfusion (3) CVA (cerebral vascular accident) Current Visit: Yes Status: Acute Assessment and Plan: Per recommendation from the neurology's TRUMAN has been ordered. Patient does not have any focal deficit at present, goal is for secondary prevention, he was already on Plavix and aspirin Lipitor 40 mg added although his lipid profile was remarkable for LDL cholesterol of 69 total cholesterol of 125. Carotid duplex revealed 40-59% stenosis of the left ICA with bilateral plaque. His echocardiogram reveals EF of 50% no evidence of PFO with agitated saline. Due to concern for embolic stroke Dr. Ng neurologist recommends transesophageal echocardiogram once the patient is more stable MRI head : 1. Multiple acute right frontal lobe infarctions. No associated hemorrhage. 2. Parenchymal volume loss and sequela of moderate chronic microvascular ischemic changes. Old lacunar infarctions in the infratentorial and supratentorial brain parenchyma. 3. 8 mm soft tissue nodule in the superficial lobe of the right parotid gland may represent intraparotid lymph node versus primary parotid neoplasm. (4) Acute encephalopathy Current Visit: Yes Status: Acute Assessment and Plan: Improving patient a more alert oriented today continue to clinically correlate in the setting of acute stroke, sepsis. CT of the brain yesterday was inconclusive we will obtain MRI of the brain due to concerns of possible acute stroke his ammonia level was within normal limits. Patient is required one-to-one supervision. Patient has been febrile overnight hence sepsis is likely the underlying reason for his altered mentation. He was already on antibiotics status post presentation with gas gangrene of his 3rd toe. We will consider monitoring clinically correlate this morning family members at his bedside-2 sisters, brother and still states that he is not back to baseline (5) Diabetes mellitus Current Visit: Yes Status: Acute Assessment and Plan: A1c 7.3, insulin per protocol. Glycemic control indicated for proper wound healing, on basal and short acting insulin, POC ranged from 68-83 but in the setting of acute encephalopathy and poor oral intake, since he now alert and oriented no dose changes, patient has been made nothing by mouth due to concerns for aspiration as aforementioned was switched to every 6h Accu-Cheks and sliding scale insulin would hold his basal insulin and mealtime insulin, will switch to D5 lactated Ringer's (6) Urinary retention Current Visit: Yes Status: Acute Assessment and Plan: Patient with obstructive uropathy that was being worked up as an outpatient, urine output improved since insertion of [facility] urology consult is pending appreciated input (7) Open fracture Current Visit: Yes Status: Acute Assessment and Plan: Status post incision and drainage below the fascia of the left first toe, left third toe amputation. Stable postop day 3, Ongoing plan per podiatry team appreciate input, Of note- CT of the left foot reveals subacute fracture of the left toe distal to the phalanx with focus of gas. (8) Gas gangrene Current Visit: Yes Status: Acute Assessment and Plan: Wound culture revealed gram-negative rods continue current antibiotic therapy for now pending blood cultures and now Enterobacter clocae susceptible to Zosyn will DC vancomycin Status post incision and drainage below the fascia of the left first toe, left third toe amputation. Stable postop day3, of note CT of the left foot reveals subacute fracture of the left toe distal to the phalanx with focus of gas. He was evaluated by podiatry team we appreciate their input is planned for OR today, on examination appears to have necrotic left 3rd toe with black eschar. Suspect underlying PAD given his tobacco use EDUARDO ordered for tomorrow (9) PAD (peripheral artery disease) Current Visit: Yes Status: Acute Assessment and Plan: Patient was evaluated by the vascular surgeon appreciate input he was planned for arteriogram today. Appears this will be postponed pending his workup for possible acute stroke, patient MRI revealed multiple right frontal lobe infarct. He will be planned for vascular intervention sometime next week preliminary report of the ankle brachial index as follows: RT EDUARDO 0.64 indicating moderate arterial disease by tech data table. LT EDUARDO 0.36 indicating severe arterial disease by tech data table. Vascular surgery consult pending notified vascular surgeon via OR nurse this afternoon (10) Troponin I above reference range Current Visit: Yes Status: Acute Assessment and Plan: Patient still denies chest pain this morning. Patient would need a TRUMAN per discussion with the neurologist as such a automobile relocation engineer consult is pending Troponin 0.06 in the setting of CKD, denies chest pain trend 0.05-0.06. Patient will benefit from either ischemic workup inpatient after his been evaluated by vascular surgeon for his PAD given his critical limb ischemia on an outpatient (11) CKD (chronic kidney disease) Current Visit: Yes Status: Acute Assessment and Plan: Serum creatinine 1.72-1.63-1.52. He is being followed by both urology and nephrology appreciate the input Of note-He was hospitalized in May 2019 for acute renal failure attributed to obstructive uropathy serum creatinine today Is much improved compared to May 2019 we will trend, check PSA, monitor I's and O's equally denies any urinary difficulties, serum creatinine improved from 1.92-1.67, only 0.3 L out so far continue to monitor may be due to bladder scan if urine output does not improve by tomorrow (12) DVT prophylaxis Current Visit: Yes Status: Acute Assessment and Plan: Heparin subcutaneous (13) Tobacco dependency Current Visit: Yes Status: Acute Assessment and Plan: Encouraged tobacco cessation will order nicotine patch and gum, given a diagnosis of PAD with with severe disease of the left lower extremity patient was strongly advised him encouraged to cease tobacco use (14) Hypotension Current Visit: Yes Status: Acute Assessment and Plan: Resolved responded to IV hydration likely due to sepsis Patient has been running low blood pressure in the setting of narcotic analgesia will start him on IV continuous hydration, blood pressure improved with the IV bolus due to concerns for sepsis. His urine output has been oliguric - Time Spent with Patient Total time spent is greater than 50% in coordination of care (as documented) at patient's floor/unit and/or counseling patient: Internal Medicine: Result - Labs CBC & Chem 7: 07/29/19 06:40 07/29/19 06:40 Labs: Short CBC 07/29/19 Range/Units 06:40 WBC 12.2 H (4.3-11.1) K/mcL Hgb 7.4 L (12.9-16.9) g/dL Hct 23.2 L (37.5-50.1) % Plt Count 273 (140-400) K/mcL Neutrophils # 9.9 H (1.6-8.9) K/mcL BMP 07/29/19 06:40 Sodium 140 Potassium 4.0 Chloride 103 Carbon Dioxide 26 BUN 15 Creatinine 1.52 H Glucose 90 Calcium 8.7 - ABG Interpretation ABG results: PT/INR, D-dimer PT 13.2 Seconds (9.4-12.1) H 07/25/19 14:28 - Impressions Impressions Brain MRI 07/27/19 15:58 IMPRESSION: 1. Multiple acute right frontal lobe infarctions. No associated hemorrhage. 2. Parenchymal volume loss and sequela of moderate chronic microvascular ischemic changes. Old lacunar infarctions in the infratentorial and supratentorial brain parenchyma. 3. 8 mm soft tissue nodule in the superficial lobe of the right parotid gland may represent intraparotid lymph node versus primary parotid neoplasm. The findings were sent to the Radiology Results [facility] at 4:02 pm on 07/27/2019to be communicated to a licensed caregiver. D/ / 07/27/2019 16:29:26 Blayne Caldera MD / deondre Interpreting Provider: Blayne Caldera MD Echocardiogram 07/27/19 23:09 Impressions: LVEF 50%. Moderate left ventricular diastolic dysfunction. LV chamber size upper limits of normal. Normal right ventricular structure and function. Moderate mitral regurgitation. A device lead was visualized in the right atrium and right ventricle. No evidence of PFO with agitated saline contrast. No pulmonary hypertension based on TR signal obtained. Left Ventricular Wall Motion: Rest Echo Findings The mid inferior, basal inferior and basal inferior lateral rucker were hypokinetic. All other wall segments showed normal motion. Findings: Study Quality * Technically adequate exam. ECG Findings * Normal sinus rhythm. Left Ventricle * LVEF 50%. * Moderate left ventricular diastolic dysfunction. * LV chamber size upper limits of normal. Right Ventricle * Normal right ventricular structure and function. Left Atrium * Moderately dilated left atrium. Right Atrium * Normal right atrial size. Aortic Valve * No aortic stenosis. * Aortic valve leaflet morphology not well visualized. * Trace aortic regurgitation. Mitral Valve * Normal mitral valve structure. * No mitral stenosis. * Moderate mitral regurgitation. Tricuspid Valve * Tricuspid valve not well visualized. * Estimated RA pressure is 3 mmHg. Pulmonic Valve * Pulmonic valve is not well visualized. * No pulmonic stenosis. * No pulmonic regurgitation. Pulmonary Artery * Pulmonary artery not well visualized. Aorta * Normally sized aortic root. Pericardium * There is no pericardial effusion present. Device lead * A device lead was visualized in the right atrium and right ventricle. Interatrial Septum * No evidence of PFO by color Doppler. * No evidence of PFO with agitated saline contrast. IVC * Normal IVC dimensions and inspiratory collapse. Consult Discharge Plan - Plan Referrals: Jessenia Self MD [Primary Care Provider] - (1) Sepsis Qualifiers: Sepsis type: sepsis due to unspecified organism Sepsis acute organ dysfuncti on status: with acute organ dysfunction Severe sepsis acute organ dysfunction type: encephalopathy Severe sepsis shock status: without septic shock Qualified Code(s): A41.9 - Sepsis, unspecified organism; R65.20 - Severe sepsis without septic shock; G93.40 - Encephalopathy, unspecified (2) Anemia Qualifiers: Anemia type: B12 deficiency Vitamin B12 deficiency anemia type: other B12 deficiency Qualified Code(s): D51.8 - Other vitamin B12 deficiency anemias (3) CVA (cerebral vascular accident) Qualifiers: CVA mechanism: embolism Precerebral and cerebral artery: unspecified cerebral artery Qualified Code(s): I63.40 - Cerebral infarction due to embolism of unspecified cerebral artery (5) Diabetes mellitus Qualifiers: Diabetes mellitus type: type 2 Diabetes mellitus senior care insulin use: without assistant terminal manager use Diabetes mellitus complication status: with hypoglycemia Diabetes mellitus complication detail: without coma Qualified Code(s): E11.649 - Type 2 diabetes mellitus with hypoglycemia without coma (11) CKD (chronic kidney disease) Qualifiers: Chronic kidney disease stage: unspecified stage Qualified Code(s): N18.9 - Chronic kidney disease, unspecified
[2019-07-29] MEDS ORDERED: D5% in Water 1,000 ML IVC PRN (10:03)
[2019-07-29] MEDS ORDERED: *HR* Dextrose 50 % in Water (Syg) 50 ML SYRINGE IVP PRN (10:03)
[2019-07-29] MEDS ORDERED: Dextrose Gel 15 GM/37.5 ML TUBE PO PRN ×2 (10:03)
[2019-07-29] MEDS: Cholecalciferol (D-3) 1,000 UNIT (25MCG) TABLET PO SCH (10:09)
[2019-07-29] MEDS: Cyanocobalamin (B-12) 1,000 MCG TABLET PO SCH (10:09)
[2019-07-29] MEDS: Aspirin Enteric Coated 81 MG Tablet PO SCH (10:09)
[2019-07-29] MEDS: Nicotine 21 MG PATCH.TD24 TD SCH (10:09)
[2019-07-29] MEDS: Piperacillin/Tazobactam 3.375 GM in 0.9 % Sodium Chloride Mini Bag 100 ML IVPB SCH ×2 (10:10→18:19)
[2019-07-29] MEDS ORDERED: D5% in Lactated Ringers 1,000 ML IVC SCH (10:15)
[2019-07-29] MEDS ORDERED: 0.9 % Sodium Chloride 250 ML ONE ×2 (12:22→22:17)
[2019-07-29] MEDS: Insulin LISPRO 300 UNITS/3 ML VIAL SQ SCH ×2 (13:05→17:12)
--- NOTE | 2019-07-29 14:06 | Neurology Progress Note ---
Date of Encounter: 07/29/19 Time of Encounter: 14:01 Assessment and Plan (1) CVA (cerebral vascular accident) Current Visit: Yes Status: Acute Patient with multiple risk factor for strokes including the buccal use, peripheral vascular disease, chronic kidney disease secondary to neuropathy and current sepsis from third toe infection who developed acute onset of altered mental status with positive acute multiple cerebral infarct involving right hemisphere concerning for embolic event. MRI of the brain showed acute signal changes on diffusion-weighted images however, ADC map may indicate subacute nature of these cerebral infarcts. Due to ongoing sepsis secondary to third toe infection I would recommend transesophageal echocardiogram to evaluate the source emboli from a cardiac sources. Would however, not recommend anticoagulation therapy unless definitive source of emboli can be identified. There is also concern of infectious endocarditis due to ongoing history of sepsis therefore no anticoagulation therapy will be recommended at this moment. Would agree to keep him on combination of aspirin and Plavix as secondary stroke prevention and continue statin therapy. Patient does have residual right hemiparesis secondary from prior CVA. Has had bilateral carotid artery stent placement 2016. Please continue medical and supportive care and neurology will certainly follow Qualifiers: CVA mechanism: embolism Precerebral and cerebral artery: unspecified cerebral artery Qualified Code(s): I63.40 - Cerebral infarction due to embolism of unspecified cerebral artery Subjective Principal diagnosis: s/p left 3rd toe amputation, CVA Interval history: Patient is seen and examined at bedside. Patient is doing well and reports no significant discomforts. No headaches and no neck pain. TRUMAN still pending. No Objective - Constitutional Vitals: Temp Pulse Resp BP Pulse Ox 98.8 F 69 16 139/78 96 07/29/19 13:12 07/29/19 13:12 07/29/19 13:12 07/29/19 13:12 07/29/19 13:12 - Neurological Exam Sensorimotor examination: Present: intact Motor Examination: Present: grossly full strength in all extremities Motor examination - right side: 4/5: deltoids, biceps, triceps, wrist flexion, wrist extension, match up worker, hip flexors, tibialis Anterior, quadriceps, toe extension (EHL), plantarflexion Motor examination - left side: 5/5: deltoids, biceps, triceps, wrist flexion, wrist extension, hip flexors, match up worker, quadriceps, tibialis Anterior, toe extension (EHL), plantarflexion Sensation intact: Present: other (Grossly intact) Posture: Present: other (None) Reflexes: Biceps: 1+, Triceps: 1+, Brachioradialis: 1+, Patella: 1+, Achilles: 1+ Mental Status Examination: Present: awake, alert, oriented to person, oriented to place, oriented to time, follows commands appropriately, answers questions appropriately, no agnosia, no aphasia, no aproxia Cranial nerve examination: Present: PERRL, EOMI, visual conner intact, corneal reflexes brisk symmetrically, sensory to face intact, mastication intact, no facial asymmetry is present, no dysarthria, hearing is intact symmetrically, soft palate elevates bilaterally upon phonation, gag reflex intact, flexes SCM and trapezius muscles symmetrically with full power, tongue protrudes midline Results - Laboratory Findings CBC and BMP: 07/29/19 06:40 07/29/19 06:40 Abnormal lab findings: Abnormal lab results WBC 12.2 K/mcL (4.3-11.1) H 07/29/19 06:40 RBC 2.55 M/mcL (4.19-5.50) L 07/29/19 06:40 Hgb 7.4 g/dL (12.9-16.9) L 07/29/19 06:40 Hct 23.2 % (37.5-50.1) L 07/29/19 06:40 Neutrophils # 9.9 K/mcL (1.6-8.9) H 07/29/19 06:40 ESR 112 mm/hr (0-10) H 07/25/19 14:28 PT 13.2 Seconds (9.4-12.1) H 07/25/19 14:28 VBG pO2 57 mmHg (25-50) H 07/25/19 15:43 Sodium 134 mEq/L (136-145) L 07/28/19 04:20 Potassium 3.2 mEq/L (3.5-5.1) L 07/28/19 04:20 BUN 26 mg/dL (8-23) H 07/25/19 14:28 Creatinine 1.52 mg/dL (0.70-1.30) H 07/29/19 06:40 Est GFR ( Amer) 56 (> 60) L 07/29/19 06:40 Est GFR (Non-Af Amer) 47 (> 60) L 07/29/19 06:40 Glucose 69 mg/dL (70-105) L 07/28/19 04:20 POC Glucose 151 mg/dL (70-99) H 07/28/19 16:56 Hemoglobin A1c 7.3 % (-5.6) H 07/25/19 14:31 Calculated Osmolality 278 (280-300) L 07/28/19 04:20 Calcium 8.5 mg/dL (8.6-10.3) L 07/28/19 04:20 Iron 20 mcg/dL (65-175) L 07/26/19 03:07 % Saturation 10 % (20-55) L 07/26/19 03:07 Transferrin 148 mg/dL (203-362) L 07/26/19 03:07 AST 12 Units/L (13-39) L 07/25/19 14:28 Troponin I 0.06 ng/mL (< 0.04) H* 07/26/19 03:07 C-Reactive Protein 90 mg/L (Less than 10) H 07/25/19 14:28 Triglycerides 180 mg/dL (< 150) H 07/28/19 04:20 VLDL Cholesterol, Calc 36 mg/dL (< 31) H 07/28/19 04:20 HDL Cholesterol 20 mg/dL (40-59) L 07/28/19 04:20 Cholesterol/HDL Ratio 6.3 (0-4.9) H 07/28/19 04:20 Vitamin B12 204 pg/mL (250-1100) L 07/26/19 03:07 Beta-Hydroxybutyric Acd 0.28 mmol/L (0.02-0.27) H 07/25/19 15:31 Urine Protein 30 mg/dL (Neg-Trace) H 07/26/19 20:50 Vancomycin Trough 16 mcg/mL (5-10) H 07/28/19 08:58 Crossmatch See Detail 07/29/19 10:47 Consult Discharge Plan - Plan Referrals: Jessenia Self MD [Primary Care Provider] -
[2019-07-29] MEDS ORDERED: Furosemide 20 MG/2 ML VIAL IVP ONE (17:10)
[2019-07-30] MEDS: Insulin LISPRO 300 UNITS/3 ML VIAL SQ SCH ×4 (00:49→17:28)
[2019-07-30] MEDS: Piperacillin/Tazobactam 3.375 GM in 0.9 % Sodium Chloride Mini Bag 100 ML IVPB SCH ×3 (00:54→16:46)
[2019-07-30] MEDS: *HR* Heparin 5,000 UNIT/ML VIAL SQ SCH ×2 (06:11→16:47)
[2019-07-30] MEDS: Nicotine 21 MG PATCH.TD24 TD SCH (08:41)
[2019-07-30] MEDS: Cyanocobalamin (B-12) 1,000 MCG TABLET PO SCH (08:50)
[2019-07-30] MEDS: Aspirin Enteric Coated 81 MG Tablet PO SCH (08:50)
[2019-07-30] MEDS: Cholecalciferol (D-3) 1,000 UNIT (25MCG) TABLET PO SCH (08:50)
[2019-07-30] MEDS ORDERED: Lidocaine Viscous Oral Soln 15 ML SOLUTION MM PRN (09:17)
[2019-07-30] MEDS ORDERED: *HR* Midazolam HCl 5 MG/5 ML VIAL IVP PRN (09:18)
[2019-07-30] MEDS ORDERED: 0.9 % Sodium Chloride 500 ML IVC ONE (09:18)
[2019-07-30] MEDS: *HR* FentaNYL (PF) 100 MCG/2 ML VIAL IVP PRN ×2 (09:55→10:15)
--- NOTE | 2019-07-30 11:42 | Electrocardiograph Report ---
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
--- NOTE | 2019-07-30 12:48 | Podiatry Progress Note ---
Date of Encounter: 07/30/19 Time of Encounter: 12:42 - Assessment and Plan (1) Gas gangrene Current Visit: Yes Status: Acute Assessment: S/P Incision and drainage below fascia, left 3rd toe and left 3rd toe amputation on 07/25/[address] Escobar WBC 12.2 on 07/29/19 Wound dehiscence noted to right 3rd amputation site Surrounding tissue dusky in color Palpable pulses left foot Plan: Patient states he is being transferred to outside facility for other complications Patient will need to follow up with podiatry clinic once discharged from hospital Patient will need vascular surgery consultation for possible angiogram once appropriate Dressing changed to left foot, see below Ambulate in surgical shoe, heel weight bearing only, once cleared to ambulate Cleansed left foot with 0.9 NS [address] calcium alginate to wound bed, covered with 4x4 dry gauze, kerlix and medipore tape Subjective Principal diagnosis: s/p left 3rd toe amputation, CVA Interval history: Patient awake in bed. Alert and oriented. Speech slurred. Patient at bedside. States they are being transferred to outside facility due to vegetation on defibrillator. Denies any fevers, chills, nausea, vomiting, or diarrhea. Denies any calf pain, chest pain, or shortness of breath. Denies ambulating. states he has been pressing foot against bed rail. No other questions or concerns at this time Objective - Vital Signs Vital Signs: Vital Signs Temp Pulse Resp BP Pulse Ox 07/30/19 11:00 97.9 F 74 16 112/66 94 07/30/19 09:33 97.6 F 68 14 145/77 91 07/30/19 06:25 98.8 F 69 16 146/77 95 07/30/19 02:06 98.6 F 72 18 150/74 94 07/29/19 22:50 2 07/29/19 22:40 98.8 F 71 16 128/77 94 07/29/19 22:26 99.5 F 75 16 133/70 93 07/29/19 19:22 98.5 F 84 18 132/64 93 07/29/19 16:40 98.8 F 74 16 149/78 94 07/29/19 13:12 98.8 F 69 16 139/78 96 07/29/19 12:57 98.5 F 68 16 116/57 92 Intake and Output 07/29/19 07/30/19 07/30/19 23:59 07:59 15:59 Intake Total 640 / 740 333 / 520 187 / 520 Output Total 500 / 500 Balance 640 / -160 -167 / 20 187 / 20 Intake: IV Fluids 50 / 150 100 / 287 187 / 287 0.9 % Sodium Chloride 500 ML @ 187 / 187 150 mls/hr IVC .Q3H20M ONE Rx#: [id number] Zosyn 3.375 GM In 0.9 % Sodium 50 / 150 100 / 100 Chloride (Mini-Bag +) 100 ML @ 25 mls/hr IVPB Q8HR [facility] Rx#: [id number] Oral 240 / 240 Blood Product 350 / 350 233 / 233 Rbcs Leuko Poor As-1 Unit 350 / 350 [id number] Rbcs Leuko Poor As-3 Ph Unit 0 / 0 233 / 233 [id number] Output: Straight Cath 500 / 500 Other: Meal Dinner Percent of Meal Consumed 100% Weight 82.554 kg Blood Glucose* 199 149 157 Patient Weight 07/30/19 23:59 Weight 82.554 kg - Exam Exam: Constitiutional: Alert and oriented x 3. Speech slurred. Well nourished. No acute distress noted Vascular: 1/4 DP/PT LLE, CFT <3 sec to all digits LLE, warm to warm from tibia to toes LLE Neurologic: Sensation to touch, normal plantar response Dermatologic: Incision noted to left 3rd amputation site, dehiscence noted, wound bed pink, surrounding tissue dusky in color Musculoskeletal: 3/5 muscle strength and normal tone LLE - Lab Result Diagrams: 07/29/19 06:40 07/29/19 06:40 Labs: Abnormal lab results WBC 12.2 K/mcL (4.3-11.1) H 07/29/19 06:40 RBC 2.55 M/mcL (4.19-5.50) L 07/29/19 06:40 Hgb 7.4 g/dL (12.9-16.9) L 07/29/19 06:40 Hct 23.2 % (37.5-50.1) L 07/29/19 06:40 Neutrophils # 9.9 K/mcL (1.6-8.9) H 07/29/19 06:40 ESR 112 mm/hr (0-10) H 07/25/19 14:28 PT 13.2 Seconds (9.4-12.1) H 07/25/19 14:28 VBG pO2 57 mmHg (25-50) H 07/25/19 15:43 Sodium 134 mEq/L (136-145) L 07/28/19 04:20 Potassium 3.2 mEq/L (3.5-5.1) L 07/28/19 04:20 BUN 26 mg/dL (8-23) H 07/25/19 14:28 Creatinine 1.52 mg/dL (0.70-1.30) H 07/29/19 06:40 Est GFR ( Amer) 56 (> 60) L 07/29/19 06:40 Est GFR (Non-Af Amer) 47 (> 60) L 07/29/19 06:40 Glucose 69 mg/dL (70-105) L 07/28/19 04:20 POC Glucose 158 mg/dL (70-99) H 07/30/19 05:57 Hemoglobin A1c 7.3 % (-5.6) H 07/25/19 14:31 Calculated Osmolality 278 (280-300) L 07/28/19 04:20 Calcium 8.5 mg/dL (8.6-10.3) L 07/28/19 04:20 Iron 20 mcg/dL (65-175) L 07/26/19 03:07 % Saturation 10 % (20-55) L 07/26/19 03:07 Transferrin 148 mg/dL (203-362) L 07/26/19 03:07 AST 12 Units/L (13-39) L 07/25/19 14:28 Troponin I 0.06 ng/mL (< 0.04) H* 07/26/19 03:07 C-Reactive Protein 90 mg/L (Less than 10) H 07/25/19 14:28 Triglycerides 180 mg/dL (< 150) H 07/28/19 04:20 VLDL Cholesterol, Calc 36 mg/dL (< 31) H 07/28/19 04:20 HDL Cholesterol 20 mg/dL (40-59) L 07/28/19 04:20 Cholesterol/HDL Ratio 6.3 (0-4.9) H 07/28/19 04:20 Vitamin B12 204 pg/mL (250-1100) L 07/26/19 03:07 Beta-Hydroxybutyric Acd 0.28 mmol/L (0.02-0.27) H 07/25/19 15:31 Urine Protein 30 mg/dL (Neg-Trace) H 07/26/19 20:50 Vancomycin Trough 16 mcg/mL (5-10) H 07/28/19 08:58 Crossmatch See Detail 07/29/19 10:47 Microbiology, Last 48 Hours 07/25/19 19:14 Anaerobic Culture - Preliminary Left Third Toe Culture is incubating. Consult Discharge Plan - Plan Additional Instructions: Heel weight bearing only, wear surgical shoe when ambulating Follow up with podiatry clinic upon discharge Referrals: Jessenia Self MD [Primary Care Provider] -
--- NOTE | 2019-07-30 12:54 | Neurology Progress Note ---
Date of Encounter: 07/30/19 Time of Encounter: 09:00 Assessment and Plan (1) CVA (cerebral vascular accident) Current Visit: Yes Status: Acute Patient seen today with no focal neurologist deficits. MRI of the brain showed acute signal changes on diffusion-weighted images which given sepsis likely represents septic emboli. 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 Vascular Surgery has been consul marvin. Will defer to Vascular regarding further anticoagulation recommendations. Further recommendations per Dr. Mejía, attending neurologists, addendum. Qualifiers: CVA mechanism: embolism Precerebral and cerebral artery: unspecified cerebral artery Qualified Code(s): I63.40 - Cerebral infarction due to embolism of unspecified cerebral artery Subjective Principal diagnosis: s/p left 3rd toe amputation, CVA Interval history: Mr Swanson was seen at bedside today. He was oriented to person, place, situation, but not time. He denies worsening numbness/tingling, weakness, changes in vision/hearing, and nausea. Patient reports no new complaints. Objective - Constitutional Vitals: Temp Pulse Resp BP Pulse Ox 97.9 F 74 16 112/66 94 07/30/19 11:00 07/30/19 11:00 07/30/19 11:00 07/30/19 11:00 07/30/19 11:00 Exam: GENERAL: Comfortable in no acute distress HEENT: Normal LUNGS: CTA HEART: RRR, S1 S2 Audible, no murmur EXTREMITIES: No Pedal edema. DETAILED NEUROLOGICAL EXAMINATION: MENTAL STATUS: Oriented to person, place, and situation but not date. Memory: knows the President, Aware of recent events Recent Memory Intact, Attention span is normal Cranial Nerve Examination: CN - II: Visual Acuity, Field of Vision Normal, Pupils- size shape reaction to light and accommodation: All normal. CN III, IV, : Limited left lateral gaze in both eyes, Pupils were reactive, Nodrooping of the eyelids CN V: Sensation over the face to light touch and pinprick all normal. Corneal reflexes not tested, jaw jerk normal. CN VII: No facial asymmetry, no flattening of nasolabial folds, no difficulty in closing the eyes, no loss of forehead wrinkles, no difficulty in eye-closure, frowning raising eyebrows. CNVIII: No significant hearing loss CN IX, X: Uvula centralized not deviated, Gag reflex: Not tested CN X1: Sternocleidomastoid, trapezius, normal or evidence of any weakness. CN X11: No Dysarthria, no wasting or fibrillation of tongue muscles, no deviation, tongue muscle strength normal. Motor examination: No hypertrophy, tone was normal Upper limbs Proximal- No difficulty in lifting the arms above the head. Distal- No weakness in distal muscles On formal testing 5/5 all over Lower limbs On formal testing 5/5 all over Coordination: [id number] normal. Target pursuit normal finger tapping normal, Rapid alternating moment of wrist normal Sensory system: Superficial sensations- Touch normal. Pain- Pinprick, Temperature all normal, Deep sensation normal, Joint position sense normal. Cortical sensation, Tactile discrimination, localization and extinction all normal. Deep tendon reflexes. Symmetrical bilateral, No evidence of Babinski. 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, quadriceps, tibialis Anterior, toe extension (EHL), plantarflexion Sensation intact: Present: other (Grossly intact) Posture: Present: other (None) Mental Status Examination: Present: awake, alert, oriented to person, oriented t o place, oriented to time, follows commands appropriately, answers questions appropriately, no agnosia, no aphasia, no aproxia Cranial nerve examination: Present: PERRL, EOMI, visual conner intact, corneal reflexes brisk symmetrically, sensory to face intact, mastication intact, no facial asymmetry is present, no dysarthria, hearing is intact symmetrically, soft palate elevates bilaterally upon phonation, gag reflex intact, flexes SCM and trapezius muscles symmetrically with full power, tongue protrudes midline Results - Laboratory Findings CBC and BMP: 07/29/19 06:40 07/29/19 06:40 Abnormal lab findings: Abnormal lab results WBC 12.2 K/mcL (4.3-11.1) H 07/29/19 06:40 RBC 2.55 M/mcL (4.19-5.50) L 07/29/19 06:40 Hgb 7.4 g/dL (12.9-16.9) L 07/29/19 06:40 Hct 23.2 % (37.5-50.1) L 07/29/19 06:40 Neutrophils # 9.9 K/mcL (1.6-8.9) H 07/29/19 06:40 ESR 112 mm/hr (0-10) H 07/25/19 14:28 PT 13.2 Seconds (9.4-12.1) H 07/25/19 14:28 VBG pO2 57 mmHg (25-50) H 07/25/19 15:43 Sodium 134 mEq/L (136-145) L 07/28/19 04:20 Potassium 3.2 mEq/L (3.5-5.1) L 07/28/19 04:20 BUN 26 mg/dL (8-23) H 07/25/19 14:28 Creatinine 1.52 mg/dL (0.70-1.30) H 07/29/19 06:40 Est GFR ( Amer) 56 (> 60) L 07/29/19 06:40 Est GFR (Non-Af Amer) 47 (> 60) L 07/29/19 06:40 Glucose 69 mg/dL (70-105) L 07/28/19 04:20 POC Glucose 158 mg/dL (70-99) H 07/30/19 05:57 Hemoglobin A1c 7.3 % (-5.6) H 07/25/19 14:31 Calculated Osmolality 278 (280-300) L 07/28/19 04:20 Calcium 8.5 mg/dL (8.6-10.3) L 07/28/19 04:20 Iron 20 mcg/dL (65-175) L 07/26/19 03:07 % Saturation 10 % (20-55) L 07/26/19 03:07 Transferrin 148 mg/dL (203-362) L 07/26/19 03:07 AST 12 Units/L (13-39) L 07/25/19 14:28 Troponin I 0.06 ng/mL (< 0.04) H* 07/26/19 03:07 C-Reactive Protein 90 mg/L (Less than 10) H 07/25/19 14:28 Triglycerides 180 mg/dL (< 150) H 07/28/19 04:20 VLDL Cholesterol, Calc 36 mg/dL (< 31) H 07/28/19 04:20 HDL Cholesterol 20 mg/dL (40-59) L 07/28/19 04:20 Cholesterol/HDL Ratio 6.3 (0-4.9) H 07/28/19 04:20 Vitamin B12 204 pg/mL (250-1100) L 07/26/19 03:07 Beta-Hydroxybutyric Acd 0.28 mmol/L (0.02-0.27) H 07/25/19 15:31 Urine Protein 30 mg/dL (Neg-Trace) H 07/26/19 20:50 Vancomycin Trough 16 mcg/mL (5-10) H 07/28/19 08:58 Crossmatch See Detail 07/29/19 10:47 Consult Discharge Plan - Plan Additional Instructions: Heel weight bearing only, wear surgical shoe when ambulating Follow up with podiatry clinic upon discharge Referrals: Jessenia Self MD [Primary Care Provider] -
--- NOTE | 2019-07-30 16:04 | Discharge Summary ---
- NOTES TO OUTPATIENT PROVIDER Notes to Outpatient Provider: Patient will be transferred to [facility] due to TRUMAN revealed vegetations in his pacemaker leads. Dr Moreau electric razor mechanic is aware and will be removing the pacemaker. Dr Kwame lucero is the accepting physician she was contacted by Dr Moreau after he was briefed of the case and surgical emergency for source control. Orders not resulted at time of discharge: Pending orders 07/25/19 19:14 Culture,Anaerobic [RM] Routine Date of Encounter: 07/30/19 Time of Encounter: 16:01 - Discharge Diagnosis (1) Sepsis Priority: Primary Status: Acute Assessment and Plan: Initially improving as such his antimicrobial therapy was de-escalated from vancomycin and Zosyn to just Zosyn based on surgical wound cultures and sensitivity which grew Enterobacter cloacae sensitive to Zosyn. yesterday patient was febrile overnight and his intially resolved leukocytosis 10.6 trended up 12.2 yesterday, today's lab pending since patient went for TRUMAN this am and was missed for blood draw. TRUMAN revealed-a hyperechoic mobile mass attaching to the high RA portion of RV lead measuring 3 mm x 7 mm concerning for vegetation. Patient will be transferred to [facility] due to TRUMAN revealed vegetations in his pacemaker leads. Dr Moreau electric razor mechanic is aware and will be removing the pacemaker. Dr Kwame lucero is the accepting physician she was contacted by Dr Moreau after he was briefed of the case and surgical emergency for source control. the likely source being his presenting with the gas gangrene of the third toe, initial blood culture on admission has been negative for 2 days patient was already started on empiric antibiotics with vancomycin pharmacy to dose given his CKD and Zosyn hence repeating the blood culture today will be un-yielding. His surgical wound culture does reveal gram-negative radha will await blood cultures to finalize before descalating antibiotics Qualifiers: Sepsis type: sepsis due to unspecified organism Sepsis acute organ dysfunction status: with acute organ dysfunction Severe sepsis acute organ dysfunction type: encephalopathy Severe sepsis shock status: without septic shock Qualified Code(s): A41.9 - Sepsis, unspecified organism; R65.20 - Severe sepsis without septic shock; G93.40 - Encephalopathy, unspecified (2) Anemia Priority: Primary Status: Acute Assessment and Plan: Hemoglobin has trended down from 9.4 on admission to 7.6 although it is setting of volume resuscitation and recent surgery workup so far reveal B12 deficiency will monitor clinically correlate may need to transfuse in the next 24 hours given his overall comorbid condition, following this morning 7.4 given to his planned for vascular procedure in the upcoming days coupled with his steady decline hemoglobin suspect insidious GI bleed of note he already has vitamin B deficiency for which she is currently being treated will empirically transfuse 2 units packed red blood cell to be typed and crossed this was discussed with the patient and his and he agreed to blood transfusion, repeat CBC today is pending Qualifiers: Anemia type: B12 deficiency Vitamin B12 deficiency anemia type: other B12 deficiency Qualified Code(s): D51.8 - Other vitamin B12 deficiency anemias (3) CVA (cerebral vascular accident) Priority: Primary Status: Acute Assessment and Plan: Per recommendation from the neurology's TRUMAN has been ordered. Which revealed a hyperechoic mobile mass attaching to the high RA portion of RV lead measuring 3 mm x 7 mm concerning for vegetation. Patient will be transferred to [facility] due to TRUMAN revealed vegetations in his pacemaker leads. Dr Moreau electric razor mechanic is aware and will be removing the pacemaker. Dr Bertrand- hospitalist is the accepting physician she was contacted by Dr Moreau after he was briefed of the case and surgical emergency for source control. Patient does not have any focal deficit at present, goal is for secondary prevention, he was already on Plavix and aspirin Lipitor 40 mg added although his lipid profile was remarkable for LDL cholesterol of 69 total cholesterol of 125. Carotid duplex revealed 40-59% stenosis of the left ICA with bilateral plaque. His echocardiogram reveals EF of 50% no evidence of PFO with agitated saline. Due to concern for embolic stroke Dr. Ng neurologist recommends transesophageal echocardiogram once the patient is more stable MRI head : 1. Multiple acute right frontal lobe infarctions. No associated hemorrhage. 2. Parenchymal volume loss and sequela of moderate chronic microvascular ischemic changes. Old lacunar infarctions in the infratentorial and supratentorial brain parenchyma. 3. 8 mm soft tissue nodule in the superficial lobe of the right parotid gland may represent intraparotid lymph node versus primary parotid neoplasm. Qualifiers: CVA mechanism: embolism Precerebral and cerebral artery: unspecified cerebral artery Qualified Code(s): I63.40 - Cerebral infarction due to embolism of unspecified cerebral artery (4) Acute encephalopathy Priority: Primary Status: Acute Assessment and Plan: Improving patient a more alert oriented today continue to clinically correlate in the setting of acute stroke, sepsis. CT of the brain yesterday was inconclusive we will obtain MRI of the brain due to concerns of possible acute stroke his ammonia level was within normal limits. Patient is required one-to-one supervision. Patient has been febrile overnight hence sepsis is likely the underlying reason for his altered mentation. He was already on antibiotics status post presentation with gas gangrene of his 3rd toe. We will consider monitoring clinically correlate this morning family members at his bedside-2 sisters, brother and still states that he is not back to baseline (5) Diabetes mellitus Priority: Primary Status: Acute Assessment and Plan: A1c 7.3, insulin per protocol. Glycemic control indicated for proper wound healing, on basal and short acting insulin POC ranged 128 - 199 Qualifiers: Diabetes mellitus type: type 2 Diabetes mellitus retirement insulin use: without retirement use Diabetes mellitus complication status: with hypoglycemia Diabetes mellitus complication detail: without coma Qualified Code(s): E11.649 - Type 2 diabetes mellitus with hypoglycemia without coma (6) Urinary retention Priority: Primary Status: Acute Assessment and Plan: Patient with obstructive uropathy that was being worked up as an outpatient, urine output improved since insertion of Cervantes urology consulted and recommended out patient follow-up and to keep cervantes in place upon discharge (7) Open fracture Priority: Primary Status: Acute Assessment and Plan: Status post incision and drainage below the fascia of the left first toe, left third toe amputation. Stable postop day 3, Ongoing plan per podiatry team appreciate input, Of note- CT of the left foot reveals subacute fracture of the left toe distal to the phalanx with focus of gas. (8) Gas gangrene Priority: Primary Status: Acute Assessment and Plan: Wound culture revealed gram-negative rods continue current antibiotic therapy for now pending blood cultures and now Enterobacter clocae susceptible to Zosyn will DC vancomycin Status post incision and drainage below the fascia of the left first toe, left third toe amputation. Stable postop day3, of note CT of the left foot reveals subacute fracture of the left toe distal to the phalanx with focus of gas. He was evaluated by podiatry team we appreciate their input is planned for OR today, on examination appears to have necrotic left 3rd toe with black eschar. Suspect underlying PAD given his tobacco use EDUARDO ordered for tomorrow (9) PAD (peripheral artery disease) Priority: Primary Status: Acute Assessment and Plan: Notified the physicians at [facility] that the patient would need a vascular surgical consult also Patient was evaluated by the vascular surgeon appreciate input he was planned for arteriogram today. Appears this will be postponed pending his workup for possible acute stroke, patient MRI revealed multiple right frontal lobe infarct. He will be planned for vascular intervention sometime next week preliminary report of the ankle brachial index as follows: RT EDUARDO 0.64 indicating moderate arterial disease by tech data table. LT EDUARDO 0.36 indicating severe arterial disease by tech data table. Vascular surgery consult pending notified vascular surgeon via OR nurse this afternoon (10) Troponin I above reference range Priority: Primary Status: Acute Assessment and Plan: Patient still denies chest pain this morning. Troponin 0.06 in the setting of CKD, denies chest pain trend 0.05-0.06. Patient will benefit from either ischemic workup inpatient after his been evaluated by vascular surgeon for his PAD given his critical limb ischemia on an outpatient (11) CKD (chronic kidney disease) Priority: Primary Status: Acute Assessment and Plan: Serum creatinine 1.72-1.63-1.52. He is being followed by both urology and nephrology appreciate the input Of note-He was hospitalized in May 2019 for acute renal failure attributed to obstructive uropathy serum creatinine today Is much improved compared to May 2019 we will trend, check PSA, monitor I's and O's equally denies any urinary difficulties, serum creatinine improved from 1.92-1.67, only 0.3 L out so far continue to monitor may be due to bladder scan if urine output does not improve by tomorrow Qualifiers: Chronic kidney disease stage: unspecified stage Qualified Code(s): N18.9 - Chronic kidney disease, unspecified (12) DVT prophylaxis Priority: Secondary Status: Acute Assessment and Plan: Heparin subcutaneous (13) Tobacco dependency Priority: Secondary Status: Acute Assessment and Plan: Encouraged tobacco cessation will order nicotine patch and gum, given a diagnosis of PAD with with severe disease of the left lower extremity patient was strongly advised him encouraged to cease tobacco use (14) Hypotension Priority: Secondary Status: Acute Assessment and Plan: Resolved responded to IV hydration likely due to sepsis Patient has been running low blood pressure in the setting of narcotic analgesia will start him on IV continuous hydration, blood pressure improved with the IV bolus due to concerns for sepsis. 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 Swanson is a 64 year old male hospitalized for left third toe pain and cyanosis was diagnosed with gas gangrene of the third left toe as such underwent emergent incision and drainage below fascia of the left first toe, and left 3rd toe amputation on 07/25/2019. This surgery was on complicated however patient was noted to be septic postop day 1 of note he was already on empiric antimicrobial therapy with vancomycin and Zosyn from admission. His surgical wound culture grew Enterobacter cloacae which was susceptible to Zosyn as such as antimicrobial therapy was subsequently Descalated based on culture sensitivities several days later. Also postop day one patient was noted to be mildly confused and also to have urinary retention. Of note patient was hospitalized in May 2019 for obstructive uropathy that was being worked up by urology as scheduled for intervention as an outpatient. His urine output improved with Cervantes catheter insertion. Due to concerns for PAD patient had ankle-brachial index and left extremity arterial physiologic study that revealed the right lower extremity pressures waveforms are consistent with moderate disease, the right ankle-brachial index is 0.64; the left lower extremity pressures waveforms are consistent with severe disease, the left ankle brachial index is 0.36 and was planned for vascular intervention. 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 An MRI was ordered, however patient had a pacemaker which was not compatible with a hospital MRI machine has this study was delayed pending approval from his electric razor mechanic to override his pacemaker and the client service representative of [employer] the pacemaker company to come help with the process coupled with scheduling at the outpatient MRI off site. His brain MRI was finally completed and it revealed - Multiple acute right frontal lobe infarctions. No associated hemorrhage. Parenchymal volume loss and sequela of moderate chronic microvascular ischemic changes. Old lacunar infarctions in the infratentorial and supratentorial brain parenchyma. 3. 8 mm soft tissue nodule in the superficial lobe of the right parotid gland may represent intraparotid lymph node versus primary parotid neoplasm. Clinically patient responded to IV antibiotics and IV fluid infusion, he was noted to steadily drop his hemoglobin and hematocrit 9.4 on admission down to 7.4 workup revealed mild B12 deficiency otherwise unremarkable Iron studies as such she was transfused 2 units of packed red blood cells yesterday in anticipation of his multiple procedures planned for this week. Patient's TRUMAN revealed vegetationsin his pacemaker leads. As such she was deemed candidate for transfer to a tertiary institution capable of removing the pacemaker leads. Patient has been transferred to [facility]. Dr Moreau electric razor mechanic is aware and will be removing the pacemaker. Dr Bertrand- hospitalist is the accepting physician she was contacted by Dr Moreau after he was briefed of the case meeting criteria for surgical emergency for source control. Discharge discussed with: patient, family, nurse, healthcare market consultant (Dr Moreau from [facility]) - Time Spent with Patient Total time spent providing and/or coordinating discharge services: - Discharge Medications Prescriptions: New Nicotine Gum [Nicorette gum] 2 mg BC Q2HWA PRN gum PRN Reason: Nicotine Cravings Nicotine Patch [Nicoderm] 21 mg TD DAILY patch.td24 Heparin 5,000 unit SQ Q12HR vial Atorvastatin [Lipitor] 40 mg PO HS tablet Carvedilol [Coreg] 12.5 mg PO BIDWM tablet Aspirin Enteric Coated [Aspirin EC] 81 mg PO DAILY tablet. Acetaminophen [Tylenol] 650 mg PO Q6HR PRN tablet PRN Reason: Mild Pain/Fever Omeprazole [PriLOSEC] 20 mg PO 0730 capsule. Ondansetron [Zofran] 4 mg IVP Q8HR PRN vial PRN Reason: Nausea And Vomiting Glucagon, Human Recombinant [Glucagen] 1 mg IM ONCE PRN vial PRN Reason: Hypoglycemia Insulin LISPRO [HumaLOG] 0 units SQ Q6HR vial Allopurinol [Zyloprim 100 MG] 100 mg PO DAILY tablet Cholecalciferol (D-3) [Vitamin D] 1,000 unit PO DAILY tablet Cyanocobalamin (B-12) [Vitamin B12] 1,000 mcg PO DAILY tablet Continued Clopidogrel [Plavix] 75 mg PO DAILY Discontinued Carvedilol 12.5 mg PO BID Aspirin [[place] Aspirin EC] 81 mg PO DAILY glipiZIDE [Glipizide] 10 mg PO BID Allopurinol [Zyloprim 100 MG] 100 mg PO DAILY Furosemide [Lasix] 40 mg PO BID Omeprazole [PriLOSEC] 20 mg PO DAILY Cholecalciferol (Vitamin D3) [Vitamin D] 5,000 unit PO DAILY Home Medications: Clopidogrel [Plavix] 75 mg PO DAILY 06/07/19 [History] Acetaminophen [Tylenol] 650 mg PO Q6HR PRN tablet 07/30/19 [Rx] Allopurinol [Zyloprim 100 MG] 100 mg PO DAILY tablet 07/30/19 [Rx] Aspirin Enteric Coated [Aspirin EC] 81 mg PO DAILY tablet. 07/30/19 [Rx] Atorvastatin [Lipitor] 40 mg PO HS tablet 07/30/19 [Rx] Carvedilol [Coreg] 12.5 mg PO BIDWM tablet 07/30/19 [Rx] Cholecalciferol (D-3) [Vitamin D] 1,000 unit PO DAILY tablet 07/30/19 [Rx] Cyanocobalamin (B-12) [Vitamin B12] 1,000 mcg PO DAILY tablet 07/30/19 [Rx] Glucagon, Human Recombinant [Glucagen] 1 mg IM ONCE PRN vial 07/30/19 [Rx] Heparin 5,000 unit SQ Q12HR vial 07/30/19 [Rx] Insulin LISPRO [HumaLOG] 0 units SQ Q6HR vial 07/30/19 [Rx] Nicotine Gum [Nicorette gum] 2 mg BC Q2HWA PRN gum 07/30/19 [Rx] Nicotine Patch [Nicoderm] 21 mg TD DAILY patch.td24 07/30/19 [Rx] Omeprazole [PriLOSEC] 20 mg PO 0730 capsule. 07/30/19 [Rx] Ondansetron [Zofran] 4 mg IVP Q8HR PRN vial 07/30/19 [Rx] Allergies/Adverse Reactions: Allergy/AdvReac Type Severity Reaction Status Date / Time No Known Allergies Allergy Verified 06/21/19 08:20 Date of admission: 07/25/19 17:50 Primary care physician: Jessenia Self Consults: 07/25/19 16:24 Consult to Podiatry [CONS] Stat Consulting Provider: [facility] Reason for Consult: open fracture diabetic foot gangrene Time Notified: 16:25 Call Completed: Yes 07/25/19 20:30 Consult to Perfume Compounder [CONS] Routine Reason for SW Consult: possible dressing change help, home health 07/26/19 12:32 Consult to Vascular Surgery [CONS] Routine Consulting Provider: Vascular Surgery [facility] Reason for Consult: PAD, critical limb Time Notified: 12:33 Call Completed: Yes 07/26/19 20:30 Consult to Urology [CONS] Routine Consulting Provider: Urology [facility] Reason for Consult: Patient sees Dr. Chen. Had an appt. scheduled for today but missed d/t being in hospital. Family concerned he missed appt. Call Completed: Yes 07/26/19 20:32 Consult to Nephrology [CONS] Routine Consulting Provider: [facility]ANTHONY/LALITA/OZ Reason for Consult: Patient sees Dr. Tello and wants him to know that he is currently admitted in the hospital. Call Completed: Yes 07/27/19 16:22 Consult to Neurology [CONS] Routine Consulting Provider: Neurology [facility] Reason for Consult: Acute stroke, history of old lacunar infarct Time Notified: 16:23 Call Completed: Yes Discharging clinician: Ju Gan Anticipated date of discharge: 07/30/19 - Constitutional Vitals: Temp Pulse Resp BP Pulse Ox 97.9 F 74 16 112/66 94 07/30/19 11:00 07/30/19 11:00 07/30/19 11:00 07/30/19 11:00 07/30/19 11:00 Exam: GEN: NAD, A&O x3 to self, place, and president but never to year. Pleasant and conversant, at the bedside SKIN: [place] warm acyanotic not jaundice HEART: RRR, no murmurs LUNGS: Diminished with few scattered crackles no wheeze, overall non labored ABDOMEN; Soft, non tender or distended, BS x 4 normactive EXT: No LE edema, Pedal pulses 1+, radial pulses 2+ left foot dressing clean dry and intact PSYCH: Mood and affect is appropriate - Patient Status Disposition: Transfer Critical Access Hosp Condition: Fair Functional capacity at discharge: independent ambulation Overall status at discharge: patient is progressing back to baseline - Discharge Instructions Follow Up With: Jessenia Self MD [Primary Care Provider] - Additional Instructions: Heel weight bearing only, wear surgical shoe when ambulating Follow up with podiatry clinic upon discharge - Diet and Activity Activity: as per physical therapy Diet: diabetic diet, low fat, low cholesterol, low salt diet
[2019-07-30 16:40] LABS: Basophils # 0.1 K/mcL (0.0-0.2); Basophils % 0.6 %; Eosinophils # 0.3 K/mcL (0.0-0.6); Eosinophils % 2.3 %; Hemoglobin 8.7 g/dL (12.9-16.9); Immature Granulocytes % 1.1 % (0-4); Lymphocytes # 1.3 K/mcL (0.6-4.6); Lymphocytes % 10.7 %; Mean Corpuscular HGB Conc 32.2 g/dL (31.6-35.5); Mean Corpuscular Hemoglobin 29.5 pg (28.0-33.3); Mean Corpuscular Volume 91.5 fL (83.0-100.0); Mean Platelet Volume 9.8 fL (9.4-12.4); Monocytes # 0.9 K/mcL (0.0-1.3); Monocytes % 7.2 %; Neutrophils # 9.4 K/mcL (1.6-8.9); Platelet Count 271 K/mcL (140-400); Red Blood Count 2.95 M/mcL (4.19-5.50); Red Cell Distribution Width 14.2 % (11.5-14.5); Segmented Neutrophils % 78.1 %
[2019-07-30 16:50] LABS: Blood Urea Nitrogen 16 mg/dL (8-23); Calcium 8.2 mg/dL (8.6-10.3); Carbon Dioxide 25 mEq/L (23-29); Chloride 100 mEq/L (98-107); Glucose 252 mg/dL (70-105); Osmolality,Calculated 286 (280-300); Potassium 3.8 mEq/L (3.5-5.1); Sodium 133 mEq/L (136-145)
[2019-07-30 16:53] LABS: BUN/Creatinine Ratio 12 (6-26); eGFR For African Americans > 60 (> 60); eGFR For Non-African Americans 56 (> 60)
--- NOTE | 2019-07-30 18:25 | Vascular/Endovas Progress Note ---
Date of Encounter: 07/30/19 Time of Encounter: 16:50 - Assessment and plan (1) Atherosclerosis of [place] arteries of extremities with gangrene, left leg Current Visit: Yes Status: Chronic The patient has evidence of severe left lower extremity peripheral vascular disease and moderate disease of the right lower extremity. He recently required a left toe amputation. He was scheduled for an angiogram, but due to his recent right hemispheric she will vascular accident is angiogram be postponed. His she will vascular accident the patient is recommended due to vegetations seen on his pacemaker leads. He is currently being transferred to [facility]. (2) Diabetes mellitus Current Visit: Yes Status: Acute Qualifiers: Diabetes mellitus type: type 2 Diabetes mellitus correction insulin use: without middle or intermediate school principal use Diabetes mellitus complication status: with hypoglycemia Diabetes mellitus complication detail: without coma Qualified Code(s): E11. 649 - Type 2 diabetes mellitus with hypoglycemia without coma (3) CKD (chronic kidney disease) Current Visit: Yes Status: Acute Qualifiers: Chronic kidney disease stage: unspecified stage Qualified Code(s): N18.9 - Chronic kidney disease, unspecified (4) Tobacco dependency Current Visit: Yes Status: Acute - Subjective Interval history: The patient is resting comfortably despite recent she will vascular accident. Weekends events have been reviewed. The patient denies any acute illnesses overnight. He denies any chest pain or shortness of breath. He reports adequate pain control. - Physical Examination General: Present: Conversant HEENT: Present: Pupils equal Cardiac: Present: Normal S1 and S2 Lungs: Present: Other (Breath sounds bilaterally) Neuro: Present: Alert and responsive Vascular: Present: Normal capillary refill, Surgical incisions (Amputation site appears viable.). Absent: Cyanosis, Edema Abdomen: Present: Soft Skin: Present: No rashes noted on visualized skin Results 07/30/19 16:14 07/30/19 16:14 Lab Results, Last 24 hours 07/30/19 07/30/19 16:14 16:14 WBC 12.0 H Hgb 8.7 L Hct 27.0 L Plt Count 271 Sodium 133 L Potassium 3.8 Chloride 100 Carbon Dioxide 25 BUN 16 Creatinine 1.30 Glucose 252 H Calcium 8.2 L Consult Discharge Plan - Plan Additional Instructions: Heel weight bearing only, wear surgical shoe when ambulating Follow up with podiatry clinic upon discharge Referrals: Jessenia Self MD [Primary Care Provider] -
[2019-07-30 18:45] VITALS: BP 111/62
== END 2019-07-30 19:16 | disposition critical access hospital (66) | DRG 616 ==
LOC: EMEROOARM 13:51 → SUATTDRO 17:50 → 3NENU 17:50
PROVIDERS: ADMIT Pharmacist; ATTEND Pharmacist

== ENCOUNTER 2019-08-30 12:29 | Observation (INO) ==
[2019-08-30] MEDS ORDERED: Ipratropium/Albuterol Neb 3 ML IH ONE (12:54)
[2019-08-30 13:57] LABS: Basophils # 0.1 K/mcL (0.0-0.2); Basophils % 0.8 %; Eosinophils # 0.3 K/mcL (0.0-0.6); Eosinophils % 3.7 %; Hematocrit 28.2 % (37.5-50.1); Immature Granulocytes % 0.7 % (0-4); Lymphocytes # 1.8 K/mcL (0.6-4.6); Lymphocytes % 20.5 %; Mean Corpuscular HGB Conc 31.9 g/dL (31.6-35.5); Mean Corpuscular Hemoglobin 28.8 pg (28.0-33.3); Mean Corpuscular Volume 90.4 fL (83.0-100.0); Mean Platelet Volume 10.2 fL (9.4-12.4); Monocytes # 0.7 K/mcL (0.0-1.3); Monocytes % 8.1 %; Neutrophils # 5.8 K/mcL (1.6-8.9); Platelet Count 271 K/mcL (140-400); Red Blood Count 3.12 M/mcL (4.19-5.50); Red Cell Distribution Width 15.7 % (11.5-14.5); Segmented Neutrophils % 66.2 %; White Blood Count 8.7 K/mcL (4.3-11.1)
[2019-08-30 14:19] LABS: BUN/Creatinine Ratio 19 (6-26); Blood Urea Nitrogen 23 mg/dL (8-23); Carbon Dioxide 25 mEq/L (23-29); Chloride 102 mEq/L (98-107); Glucose 134 mg/dL (70-105); Osmolality,Calculated 284 (280-300); Potassium 3.7 mEq/L (3.5-5.1); Sodium 134 mEq/L (136-145); Troponin I 0.04 ng/mL (< 0.04); eGFR For African Americans > 60 (> 60); eGFR For Non-African Americans > 60 (> 60)
[2019-08-30] MEDS ORDERED: Nitroglycerin 1 INCH/GM PACKET TP ONE (14:20)
[2019-08-30] MEDS ORDERED: Furosemide 40 MG/4 ML VIAL IVP ONE ×2 (14:20→18:30)
[2019-08-30 14:44] LABS: Alanine Aminotransferase 136 Units/L (7-52); Albumin 3.7 g/dL (3.5-5.7); Albumin/Globulin Ratio 1.4 (1.1-2.2); Alkaline Phosphatase 157 Units/L (34-104); Aspartate Amino Transferase 58 Units/L (13-39); Bilirubin,Direct 0.2 mg/dL (0.0-0.2); Bilirubin,Indirect 0.5 mg/dL (0.0-1.2); Bilirubin,Total 0.7 mg/dL (0.3-1.0); Globulin 2.7 g/dL (2.4-3.5); Lipase 8 Units/L (11-82); Total Protein 6.4 g/dL (6.4-8.9)
[2019-08-30] MEDS ORDERED: Naloxone 0.4 MG/ML INJ IVP PRN (15:12)
[2019-08-30] MEDS ORDERED: Ondansetron 4 MG/2 ML VIAL IVP PRN (15:12)
[2019-08-30] MEDS ORDERED: Albuterol 2.5 MG/3 ML NEBULIZER IH PRN (15:15)
[2019-08-30] MEDS ORDERED: Dextrose Gel 15 GM/37.5 ML TUBE PO PRN ×2 (15:16)
[2019-08-30] MEDS ORDERED: *HR* Dextrose 50 % in Water (Syg) 50 ML SYRINGE IVP PRN (15:16)
[2019-08-30] MEDS ORDERED: D5% in Water 1,000 ML IVC PRN (15:16)
[2019-08-30] MEDS: Insulin LISPRO 300 UNITS/3 ML VIAL SQ SCH ×2 (17:33→20:18)
[2019-08-30] MEDS: *HR* Heparin 5,000 UNIT/ML VIAL SQ SCH (20:26)
[2019-08-30] MEDS: Insulin DETEMIR 100 UNIT/ML X5UNITS SQ SCH (21:41)
[2019-08-31 01:20] LABS: Basophils # 0.1 K/mcL (0.0-0.2); Basophils % 0.6 %; Eosinophils # 0.5 K/mcL (0.0-0.6); Eosinophils % 5.5 %; Hematocrit 28.4 % (37.5-50.1); Hemoglobin 9.2 g/dL (12.9-16.9); Immature Granulocytes % 0.7 % (0-4); Mean Corpuscular HGB Conc 32.4 g/dL (31.6-35.5); Mean Corpuscular Volume 89.6 fL (83.0-100.0); Mean Platelet Volume 10.1 fL (9.4-12.4); Monocytes # 0.7 K/mcL (0.0-1.3); Monocytes % 8.1 %; Neutrophils # 5.7 K/mcL (1.6-8.9); Platelet Count 291 K/mcL (140-400); Red Blood Count 3.17 M/mcL (4.19-5.50); Red Cell Distribution Width 15.6 % (11.5-14.5); Segmented Neutrophils % 63.1 %; White Blood Count 9.1 K/mcL (4.3-11.1)
[2019-08-31 01:22] LABS: BUN/Creatinine Ratio 16 (6-26); Blood Urea Nitrogen 23 mg/dL (8-23); Carbon Dioxide 26 mEq/L (23-29); Chloride 102 mEq/L (98-107); Glucose 133 mg/dL (70-105); Magnesium 1.9 mg/dL (1.6-2.6); Osmolality,Calculated 288 (280-300); Potassium 3.6 mEq/L (3.5-5.1); Sodium 136 mEq/L (136-145); eGFR For African Americans > 60 (> 60); eGFR For Non-African Americans 50 (> 60)
[2019-08-31 01:23] LABS: Albumin 3.7 g/dL (3.5-5.7); Albumin/Globulin Ratio 1.4 (1.1-2.2); Bilirubin,Direct 0.2 mg/dL (0.0-0.2); Bilirubin,Indirect 0.5 mg/dL (0.0-1.2); Bilirubin,Total 0.7 mg/dL (0.3-1.0); Globulin 2.6 g/dL (2.4-3.5); Total Protein 6.3 g/dL (6.4-8.9)
[2019-08-31 01:30] LABS: INR 1.4; Prothrombin Time 15.7 Seconds (9.4-12.1)
[2019-08-31] MEDS: *HR* Heparin 5,000 UNIT/ML VIAL SQ SCH ×3 (05:44→20:47)
[2019-08-31] MEDS: Insulin LISPRO 300 UNITS/3 ML VIAL SQ SCH ×4 (07:22→20:47)
[2019-08-31] MEDS: Aspirin Enteric Coated 81 MG Tablet PO SCH (08:10)
[2019-08-31] MEDS: Furosemide 40 MG/4 ML VIAL IVP SCH ×2 (08:11→17:41)
[2019-08-31] MEDS: Insulin DETEMIR 100 UNIT/ML X5UNITS SQ SCH (20:46)
[2019-09-01 02:09] LABS: Hematocrit 29.6 % (37.5-50.1); Hemoglobin 9.3 g/dL (12.9-16.9); Mean Corpuscular HGB Conc 31.4 g/dL (31.6-35.5); Mean Corpuscular Hemoglobin 28.8 pg (28.0-33.3); Mean Corpuscular Volume 91.6 fL (83.0-100.0); Mean Platelet Volume 10.2 fL (9.4-12.4); Platelet Count 290 K/mcL (140-400); Red Blood Count 3.23 M/mcL (4.19-5.50); Red Cell Distribution Width 15.8 % (11.5-14.5); White Blood Count 9.4 K/mcL (4.3-11.1)
[2019-09-01 02:25] LABS: BUN/Creatinine Ratio 18 (6-26); Blood Urea Nitrogen 25 mg/dL (8-23); Calcium 9.1 mg/dL (8.6-10.3); Carbon Dioxide 27 mEq/L (23-29); Chloride 100 mEq/L (98-107); Glucose 134 mg/dL (70-105); Osmolality,Calculated 292 (280-300); Potassium 3.7 mEq/L (3.5-5.1); Sodium 138 mEq/L (136-145); eGFR For African Americans > 60 (> 60); eGFR For Non-African Americans 51 (> 60)
[2019-09-01] MEDS: *HR* Heparin 5,000 UNIT/ML VIAL SQ SCH (05:46)
[2019-09-01] MEDS: Aspirin Enteric Coated 81 MG Tablet PO SCH (08:03)
[2019-09-01] MEDS: Furosemide 40 MG/4 ML VIAL IVP SCH (08:04)
[2019-09-01] MEDS: Insulin LISPRO 300 UNITS/3 ML VIAL SQ SCH (08:08)
[2019-09-01 08:12] VITALS: BP 142/79
[2019-09-01] MEDS ORDERED: Cholecalciferol (D-3) 1,000 UNIT (25MCG) TABLET PO SCH (09:00)
== END 2019-09-01 10:05 | disposition home or self-care (01) ==
LOC: 3BNU 12:29 → EMEROOARM 12:29 → 3BNU 17:00
PROVIDERS: ADMIT Internal Medicine; ATTEND Internal Medicine

== ENCOUNTER 2019-12-07 11:10 | Inpatient (IN) ==
[2019-12-07] MEDS ORDERED: 0.9 % Sodium Chloride 1,000 ML IVC ONE (11:27)
[2019-12-07 12:29] LABS: Hematocrit 39.8 % (37.5-50.1); Hemoglobin 12.4 g/dL (12.9-16.9); Mean Corpuscular HGB Conc 31.2 g/dL (31.6-35.5); Mean Corpuscular Hemoglobin 26.1 pg (28.0-33.3); Mean Corpuscular Volume 83.6 fL (83.0-100.0); Mean Platelet Volume 9.9 fL (9.4-12.4); Platelet Count 310 K/mcL (140-400); Red Blood Count 4.76 M/mcL (4.19-5.50); Red Cell Distribution Width 18.4 % (11.5-14.5); White Blood Count 11.9 K/mcL (4.3-11.1)
[2019-12-07 12:45] LABS: Albumin 4.2 g/dL (3.5-5.7); Albumin/Globulin Ratio 1.5 (1.1-2.2); Bilirubin,Total 0.6 mg/dL (0.3-1.0); Calcium 9.7 mg/dL (8.6-10.3); Globulin 2.8 g/dL (2.4-3.5); Potassium 5.5 mEq/L (3.5-5.1)
[2019-12-07] MEDS ORDERED: Piperacillin/Tazobactam 3.375 GM in 0.9 % Sodium Chloride Mini Bag 100 ML IVPB ONE (13:01)
[2019-12-07] MEDS ORDERED: SODIUM CHLORIDE 0.9% IVPB ONE (13:01)
[2019-12-07] MEDS ORDERED: VANCOMYCIN IVPB ONE (13:01)
[2019-12-07 14:52] LABS: Bilirubin,Urine Negative (Negative); Blood,Urine Negative (Negative); Clarity,Urine Clear (Clear); Color,Urine Yellow (Yellow); Glucose,Urine (UA) Normal (Normal); Ketones,Urine Negative (Negative); Leukocyte Esterase,Urine Moderate (Negative); Nitrite,Urine Negative (Negative); Protein,Urine 30 mg/dL (Neg-Trace); Specific Gravity,Urine 1.011 (1.010-1.025); Urobilinogen,Urine Normal (Normal)
[2019-12-07 15:04] LABS: Bacteria,Urine None Seen per hpf (None-Few); Hyaline Casts,Urine None Seen per lpf (None-Few); RBC,Urine 0-3 per hpf (0-3); Squamous Epithelial Cell,Urine Many per lpf (None-Few); WBC,Urine 50-100 per hpf (0-3)
[2019-12-07] MEDS ORDERED: *HR* OxyCODONE Immed Rel 5 MG TABLET PO PRN (15:41)
[2019-12-07] MEDS ORDERED: Naloxone 0.4 MG/ML INJ IVP PRN (15:41)
[2019-12-07] MEDS ORDERED: Ondansetron ODT 4 MG TAB.RAPDIS SL PRN (15:41)
[2019-12-07] MEDS ORDERED: *HR* HYDROcodone/Acet 5/325 mg TABLET PO PRN (15:41)
[2019-12-07] MEDS ORDERED: Acetaminophen 325 MG TABLET PO PRN (15:41)
[2019-12-07] MEDS ORDERED: 0.9 % Sodium Chloride 1,000 ML IVC SCH (15:45)
[2019-12-07] MEDS ORDERED: *HR* Dextrose 50 % in Water (Syg) 50 ML SYRINGE IVP PRN (15:52)
[2019-12-07] MEDS ORDERED: D5% in Water 1,000 ML IVC PRN (15:52)
[2019-12-07] MEDS ORDERED: Dextrose Gel 15 GM/37.5 ML TUBE PO PRN ×2 (15:52)
[2019-12-07] MEDS: Insulin LISPRO 300 UNITS/3 ML VIAL SQ SCH (18:33)
[2019-12-07] MEDS: 0.9 % Sodium Chloride 1,000 ML IVC SCH (18:43)
[2019-12-07] MEDS ORDERED: Albuterol 2.5 MG/3 ML NEBULIZER IH PRN (22:00)
[2019-12-08 01:31] LABS: Basophils # 0.1 K/mcL (0.0-0.2); Basophils % 0.5 %; Eosinophils # 0.1 K/mcL (0.0-0.6); Eosinophils % 1.2 %; Hematocrit 34.7 % (37.5-50.1); Hemoglobin 11.4 g/dL (12.9-16.9); Immature Granulocytes % 0.5 % (0-4); Lymphocytes # 0.6 K/mcL (0.6-4.6); Mean Corpuscular HGB Conc 32.9 g/dL (31.6-35.5); Mean Corpuscular Volume 79.2 fL (83.0-100.0); Monocytes # 0.6 K/mcL (0.0-1.3); Neutrophils # 10.3 K/mcL (1.6-8.9); Platelet Count 280 K/mcL (140-400); Red Blood Count 4.38 M/mcL (4.19-5.50); Red Cell Distribution Width 18.5 % (11.5-14.5); Segmented Neutrophils % 87.8 %; White Blood Count 11.8 K/mcL (4.3-11.1)
[2019-12-08 01:51] LABS: Magnesium 2.1 mg/dL (1.6-2.6)
[2019-12-08] MEDS ORDERED: Piperacillin/Tazobactam 3.375 GM in 0.9 % Sodium Chloride Mini Bag 100 ML IVPB SCH (06:00)
[2019-12-08] MEDS: Insulin LISPRO 300 UNITS/3 ML VIAL SQ SCH ×3 (08:39→18:19)
[2019-12-08] MEDS: Cholecalciferol (D-3) 1,000 UNIT (25MCG) TABLET PO SCH (08:57)
[2019-12-08] MEDS: Aspirin Enteric Coated 81 MG Tablet PO SCH (08:57)
[2019-12-08] MEDS: Cefepime HCl 2,000 MG in 0.9 % Sodium Chloride Mini Bag 100 ML IVPB SCH ×2 (11:33→23:13)
[2019-12-08] MEDS: carvediloL 6.25 MG TABLET PO SCH (16:20)
[2019-12-08] MEDS: 0.9 % Sodium Chloride 1,000 ML IVC SCH (16:21)
[2019-12-08] MEDS: MetroNIDAZOLE 500 MG/100 ML 500 MG/100 ML BAG IVPB SCH (16:21)
[2019-12-09] MEDS: MetroNIDAZOLE 500 MG/100 ML 500 MG/100 ML BAG IVPB SCH ×3 (01:22→16:58)
[2019-12-09 03:14] LABS: Basophils # 0.1 K/mcL (0.0-0.2); Basophils % 0.8 %; Eosinophils # 0.4 K/mcL (0.0-0.6); Hemoglobin 10.1 g/dL (12.9-16.9); Immature Granulocytes % 0.7 % (0-4); Lymphocytes # 0.8 K/mcL (0.6-4.6); Lymphocytes % 13.4 %; Mean Corpuscular HGB Conc 30.6 g/dL (31.6-35.5); Mean Corpuscular Hemoglobin 25.8 pg (28.0-33.3); Mean Corpuscular Volume 84.2 fL (83.0-100.0); Monocytes # 0.5 K/mcL (0.0-1.3); Monocytes % 8.4 %; Neutrophils # 4.2 K/mcL (1.6-8.9); Platelet Count 231 K/mcL (140-400); Red Blood Count 3.92 M/mcL (4.19-5.50); Red Cell Distribution Width 18.4 % (11.5-14.5); Segmented Neutrophils % 70.7 %
[2019-12-09 03:31] LABS: Calcium 8.8 mg/dL (8.6-10.3); Potassium 4.5 mEq/L (3.5-5.1)
[2019-12-09] MEDS: carvediloL 6.25 MG TABLET PO SCH ×2 (08:41→16:58)
[2019-12-09] MEDS: Cholecalciferol (D-3) 1,000 UNIT (25MCG) TABLET PO SCH (08:41)
[2019-12-09] MEDS: Insulin LISPRO 300 UNITS/3 ML VIAL SQ SCH ×3 (08:41→16:58)
[2019-12-09] MEDS: Aspirin Enteric Coated 81 MG Tablet PO SCH (08:41)
[2019-12-09] MEDS: Cefepime HCl 2,000 MG in 0.9 % Sodium Chloride Mini Bag 100 ML IVPB SCH ×2 (12:17→23:09)
[2019-12-09] MEDS: *HR* Heparin 5,000 UNIT/ML VIAL SQ SCH (17:01)
[2019-12-10] MEDS: MetroNIDAZOLE 500 MG/100 ML 500 MG/100 ML BAG IVPB SCH ×3 (01:14→17:16)
[2019-12-10 05:15] LABS: Basophils # 0.1 K/mcL (0.0-0.2); Basophils % 0.7 %; Eosinophils # 0.4 K/mcL (0.0-0.6); Hematocrit 34.1 % (37.5-50.1); Immature Granulocytes % 0.6 % (0-4); Lymphocytes # 1.4 K/mcL (0.6-4.6); Lymphocytes % 19.6 %; Mean Corpuscular HGB Conc 32.3 g/dL (31.6-35.5); Mean Corpuscular Hemoglobin 25.7 pg (28.0-33.3); Mean Corpuscular Volume 79.7 fL (83.0-100.0); Monocytes # 0.6 K/mcL (0.0-1.3); Monocytes % 8.5 %; Neutrophils # 4.6 K/mcL (1.6-8.9); Platelet Count 230 K/mcL (140-400); Red Blood Count 4.28 M/mcL (4.19-5.50); Segmented Neutrophils % 65.6 %
[2019-12-10 05:33] LABS: BUN/Creatinine Ratio 24 (6-26); Blood Urea Nitrogen 30 mg/dL (8-23); Calcium 9.1 mg/dL (8.6-10.3); Carbon Dioxide 22 mEq/L (23-29); Chloride 105 mEq/L (98-107); Glucose 137 mg/dL (70-105); Osmolality,Calculated 282 (280-300); Potassium 4.6 mEq/L (3.5-5.1); Sodium 132 mEq/L (136-145); eGFR For African Americans > 60 (> 60); eGFR For Non-African Americans 58 (> 60)
[2019-12-10] MEDS: *HR* Heparin 5,000 UNIT/ML VIAL SQ SCH ×2 (05:43→17:15)
[2019-12-10] MEDS: Insulin LISPRO 300 UNITS/3 ML VIAL SQ SCH ×3 (08:47→17:15)
[2019-12-10] MEDS: Cholecalciferol (D-3) 1,000 UNIT (25MCG) TABLET PO SCH (08:48)
[2019-12-10] MEDS: Aspirin Enteric Coated 81 MG Tablet PO SCH (08:48)
[2019-12-10] MEDS: carvediloL 6.25 MG TABLET PO SCH ×2 (08:48→17:15)
[2019-12-10] MEDS: Cefepime HCl 2,000 MG in 0.9 % Sodium Chloride Mini Bag 100 ML IVPB SCH ×2 (11:42→23:00)
[2019-12-11] MEDS: MetroNIDAZOLE 500 MG/100 ML 500 MG/100 ML BAG IVPB SCH ×2 (01:35→08:37)
[2019-12-11 02:30] LABS: Basophils # 0.1 K/mcL (0.0-0.2); Basophils % 0.8 %; Eosinophils # 0.3 K/mcL (0.0-0.6); Eosinophils % 5.1 %; Hemoglobin 10.6 g/dL (12.9-16.9); Immature Granulocytes % 0.5 % (0-4); Lymphocytes # 1.7 K/mcL (0.6-4.6); Mean Corpuscular HGB Conc 31.2 g/dL (31.6-35.5); Mean Corpuscular Hemoglobin 26.2 pg (28.0-33.3); Mean Platelet Volume 9.5 fL (9.4-12.4); Monocytes # 0.6 K/mcL (0.0-1.3); Monocytes % 9.5 %; Neutrophils # 3.7 K/mcL (1.6-8.9); Platelet Count 211 K/mcL (140-400); Red Blood Count 4.05 M/mcL (4.19-5.50); Red Cell Distribution Width 17.9 % (11.5-14.5); Segmented Neutrophils % 58.1 %; White Blood Count 6.4 K/mcL (4.3-11.1)
[2019-12-11 02:50] LABS: BUN/Creatinine Ratio 25 (6-26); Blood Urea Nitrogen 31 mg/dL (8-23); Calcium 9.1 mg/dL (8.6-10.3); Carbon Dioxide 21 mEq/L (23-29); Chloride 106 mEq/L (98-107); Glucose 178 mg/dL (70-105); Osmolality,Calculated 287 (280-300); Potassium 4.7 mEq/L (3.5-5.1); Sodium 133 mEq/L (136-145); eGFR For African Americans > 60 (> 60); eGFR For Non-African Americans 59 (> 60)
[2019-12-11] MEDS: *HR* Heparin 5,000 UNIT/ML VIAL SQ SCH ×2 (05:36→16:44)
[2019-12-11] MEDS: Insulin LISPRO 300 UNITS/3 ML VIAL SQ SCH ×3 (08:36→16:38)
[2019-12-11] MEDS: Cholecalciferol (D-3) 1,000 UNIT (25MCG) TABLET PO SCH (08:37)
[2019-12-11] MEDS: Aspirin Enteric Coated 81 MG Tablet PO SCH (08:37)
[2019-12-11] MEDS: carvediloL 6.25 MG TABLET PO SCH ×2 (08:37→16:44)
[2019-12-11] MEDS: Cefepime HCl 2,000 MG in 0.9 % Sodium Chloride Mini Bag 100 ML IVPB SCH (11:41)
[2019-12-12 02:08] LABS: Basophils # 0.1 K/mcL (0.0-0.2); Basophils % 0.9 %; Eosinophils # 0.4 K/mcL (0.0-0.6); Eosinophils % 5.1 %; Hematocrit 34.5 % (37.5-50.1); Immature Granulocytes % 0.9 % (0-4); Lymphocytes # 1.9 K/mcL (0.6-4.6); Lymphocytes % 27.5 %; Mean Corpuscular HGB Conc 31.9 g/dL (31.6-35.5); Mean Corpuscular Hemoglobin 25.8 pg (28.0-33.3); Mean Corpuscular Volume 80.8 fL (83.0-100.0); Mean Platelet Volume 9.9 fL (9.4-12.4); Monocytes # 0.6 K/mcL (0.0-1.3); Monocytes % 8.2 %; Neutrophils # 3.9 K/mcL (1.6-8.9); Platelet Count 229 K/mcL (140-400); Red Blood Count 4.27 M/mcL (4.19-5.50); Red Cell Distribution Width 18.4 % (11.5-14.5); Segmented Neutrophils % 57.4 %; White Blood Count 6.8 K/mcL (4.3-11.1)
[2019-12-12 02:22] LABS: Calcium 9.3 mg/dL (8.6-10.3); Potassium 4.6 mEq/L (3.5-5.1)
[2019-12-12] MEDS: *HR* Heparin 5,000 UNIT/ML VIAL SQ SCH (04:53)
[2019-12-12] MEDS ORDERED: *HR* Midazolam HCl 2 MG/2 ML VIAL ONE ×2 (06:50→10:39)
[2019-12-12] MEDS ORDERED: *HR* Propofol 200 MG/20 ML VIAL IVP ONE (06:50)
[2019-12-12] MEDS ORDERED: *HR* FentaNYL (PF) 100 MCG/2 ML VIAL ONE ×2 (06:50→11:00)
[2019-12-12] MEDS ORDERED: Lidocaine -MPF 2% 2 ML VIAL ONE (06:53)
[2019-12-12] MEDS ORDERED: *HR* Rocuronium Bromide 50 MG/5 ML VIAL ONE ×3 (06:53→09:10)
[2019-12-12] MEDS ORDERED: Ondansetron 4 MG/2 ML VIAL ONE (06:53)
[2019-12-12] MEDS ORDERED: Dexamethasone 4 MG/ML VIAL ONE (06:53)
[2019-12-12] MEDS ORDERED: Heparin 1,000 UNITS/500 mL 1,000 ML ONE (07:10)
[2019-12-12] MEDS ORDERED: Isovue-300 150 ML INFUS..BTL ONE (07:12)
[2019-12-12] MEDS ORDERED: Heparin 1,000 UNITS/500 mL 500 ML ONE (07:13)
[2019-12-12] MEDS ORDERED: *HR* Phenylephrine 10 MG/ML VIAL ONE (07:44)
[2019-12-12] MEDS ORDERED: *HR* Heparin 5,000 UNIT/ML VIAL ONE ×2 (09:26→10:30)
[2019-12-12] MEDS ORDERED: Neostigmine Methylsulfate 3 MG/3 ML SYRINGE ONE (10:42)
[2019-12-12] MEDS: Insulin LISPRO 300 UNITS/3 ML VIAL SQ SCH ×2 (11:01→11:20)
[2019-12-12] MEDS: carvediloL 6.25 MG TABLET PO SCH (11:01)
[2019-12-12] MEDS ORDERED: EPHEDrine 50 MG/ML VIAL ONE (11:02)
[2019-12-12] MEDS ORDERED: *HR* HYDROmorphone (PF) 1 MG/ML SYRINGE IVP PRN (11:38)
[2019-12-12] MEDS ORDERED: *HR* OxyCODONE Immed Rel 5 MG TABLET PO PRN ×3 (11:38→13:18)
[2019-12-12] MEDS ORDERED: Ondansetron 4 MG/2 ML VIAL IVP ONE (11:38)
[2019-12-12] MEDS ORDERED: Ringers Solution, Lactated 1,000 ML IVC SCH (11:45)
[2019-12-12] MEDS ORDERED: *HR* Dextrose 50 % in Water (Syg) 50 ML SYRINGE IVP PRN (13:18)
[2019-12-12] MEDS ORDERED: *HR* Acetylcysteine 20% 600 MG/3 ML ORAL SYRINGE PO SCH (13:18)
[2019-12-12] MEDS ORDERED: *HR* Labetalol 20 MG/4 ML SYRINGE IVP PRN (13:18)
[2019-12-12] MEDS ORDERED: 0.9 % Sodium Chloride 500 ML IVC SCH (13:18)
[2019-12-12] MEDS ORDERED: Naloxone 0.4 MG/ML INJ IVP PRN ×2 (13:18)
[2019-12-12] MEDS ORDERED: Albuterol 2.5 MG/3 ML NEBULIZER IH PRN (13:18)
[2019-12-12] MEDS ORDERED: *HR* HYDROcodone/Acet 5/325 mg TABLET PO PRN (13:18)
[2019-12-12] MEDS ORDERED: D5% in Water 1,000 ML IVC PRN (13:18)
[2019-12-12] MEDS ORDERED: Ondansetron 4 MG/2 ML VIAL IVP PRN (13:18)
[2019-12-12] MEDS ORDERED: Acetaminophen 325 MG TABLET PO PRN (13:18)
[2019-12-12] MEDS ORDERED: Ondansetron ODT 4 MG TAB.RAPDIS SL PRN (13:18)
[2019-12-12] MEDS ORDERED: Dextrose Gel 15 GM/37.5 ML TUBE PO PRN ×2 (13:18)
[2019-12-12] MEDS ORDERED: 0.9 % Sodium Chloride 1,000 ML ONE (13:25)
[2019-12-12 13:36] LABS: Hematocrit 26.9 % (37.5-50.1); Hemoglobin 8.6 g/dL (12.9-16.9); Immature Platelets 1.7 % (1.1-6.1); Mean Corpuscular Hemoglobin 26.1 pg (28.0-33.3); Mean Corpuscular Volume 81.5 fL (83.0-100.0); Mean Platelet Volume 9.9 fL (9.4-12.4); Red Blood Count 3.3 M/mcL (4.19-5.50); Red Cell Distribution Width 18.1 % (11.5-14.5); White Blood Count 10.3 K/mcL (4.3-11.1)
[2019-12-12 13:45] LABS: INR 1.3; Prothrombin Time 14.6 Seconds (9.4-12.1)
[2019-12-12 14:28] LABS: BUN/Creatinine Ratio 23 (6-26); Blood Urea Nitrogen 27 mg/dL (8-23); Calcium 8.6 mg/dL (8.6-10.3); Carbon Dioxide 21 mEq/L (23-29); Chloride 108 mEq/L (98-107); Glucose 202 mg/dL (70-105); Osmolality,Calculated 287 (280-300); Potassium 5.4 mEq/L (3.5-5.1); Sodium 133 mEq/L (136-145); eGFR For African Americans > 60 (> 60); eGFR For Non-African Americans > 60 (> 60)
[2019-12-12] MEDS ORDERED: ceFAZolin 2,000 MG in 0.9 % Sodium Chloride 100 ML IVPB SCH (15:00)
[2019-12-12 15:09] VITALS: BP 119/55
[2019-12-12 15:51] LABS: Troponin I 0.03 ng/mL (< 0.04)
[2019-12-12] MEDS ORDERED: Insulin LISPRO 300 UNITS/3 ML VIAL SQ SCH (16:30)
[2019-12-12] MEDS ORDERED: carvediloL 6.25 MG TABLET PO SCH (17:00)
[2019-12-13] MEDS ORDERED: *HR* Heparin 5,000 UNIT/ML VIAL SQ SCH (06:00)
[2019-12-13] MEDS ORDERED: Cholecalciferol (D-3) 1,000 UNIT (25MCG) TABLET PO SCH (09:00)
[2019-12-13] MEDS ORDERED: Aspirin Enteric Coated 81 MG Tablet PO SCH (09:00)
== END 2019-12-12 15:00 | disposition short-term general hospital (02) | DRG 854 ==
LOC: 3NENU 11:10 → EMEROOARM 11:10 → SUATTDRO 15:41 → 3NENU 16:25 → 2NNU 12-12 07:22
PROVIDERS: ADMIT Internal Medicine; ATTEND Family Medicine

== ENCOUNTER 2021-07-28 09:41 | Inpatient (IN) ==
[2021-07-28] MEDS ORDERED: Isovue-370 500 ML BOTTLE IVP ONE ×2 (10:11→20:40)
[2021-07-28 11:15] LABS: Basophils % 0.1 %; Eosinophils % 0.2 %; Hematocrit 26.7 % (37.5-50.1); Hemoglobin 8.6 g/dL (12.9-16.9); Immature Granulocytes % 0.7 % (0-4); Lymphocytes # 1.5 K/mcL (0.6-4.6); Lymphocytes % 6.2 %; Mean Corpuscular HGB Conc 32.2 g/dL (31.6-35.5); Mean Corpuscular Hemoglobin 29.6 pg (28.0-33.3); Mean Corpuscular Volume 91.8 fL (83.0-100.0); Mean Platelet Volume 10.5 fL (9.4-12.4); Monocytes # 1.2 K/mcL (0.0-1.3); Monocytes % 4.8 %; Neutrophils # 21.7 K/mcL (1.6-8.9); Platelet Count 303 K/mcL (140-400); Red Blood Count 2.91 M/mcL (4.19-5.50); Red Cell Distribution Width 15.1 % (11.5-14.5); White Blood Count 24.7 K/mcL (4.3-11.1)
[2021-07-28 11:34] LABS: Eosinophils # 0.1 K/mcL (0.0-0.6)
[2021-07-28 11:36] LABS: Calcium 9.8 mg/dL (8.6-10.3); Potassium 4.6 mEq/L (3.5-5.1)
[2021-07-28] MEDS ORDERED: *HR* Dextrose 50 % in Water (Syg) 50 ML SYRINGE IVP STA (11:36)
[2021-07-28] MEDS ORDERED: *HR* Dextrose 50 % in Water (Syg) 50 ML SYRINGE ONE (11:37)
[2021-07-28 12:20] LABS: Platelet Estimate Normal (Normal)
[2021-07-28] MEDS ORDERED: Cefepime HCl 2,000 MG in 0.9 % Sodium Chloride Mini Bag 100 ML IVPB STA (13:15)
[2021-07-28] MEDS ORDERED: Clindamycin 900 MG/50 ML 900 MG/50 ML IV.SOLN IVPB ONE (13:15)
[2021-07-28] MEDS ORDERED: *HR* Dextrose 50 % in Water (Syg) 50 ML SYRINGE IVP PRN ×2 (14:25→20:40)
[2021-07-28] MEDS ORDERED: D5% in Water 1,000 ML IVC PRN ×2 (14:25→20:40)
[2021-07-28] MEDS ORDERED: Dextrose Gel 15 GM/37.5 ML TUBE PO PRN ×4 (14:25→20:40)
[2021-07-28] MEDS ORDERED: Ringers Solution, Lactated 500 ML IVC ONE ×2 (14:27→20:40)
[2021-07-28] MEDS ORDERED: *HR* OxyCODONE Immed Rel 5 MG TABLET PO PRN ×4 (14:36→20:40)
[2021-07-28] MEDS ORDERED: Ondansetron 4 MG/2 ML VIAL IVP PRN ×2 (14:49→20:40)
[2021-07-28] MEDS ORDERED: *HR* Dextrose 50 % in Water (Syg) 50 ML SYRINGE IVP ONE (15:40)
[2021-07-28] MEDS ORDERED: Clindamycin 900 MG/50 ML 900 MG/50 ML IV.SOLN IVPB SCH (16:00)
[2021-07-28] MEDS ORDERED: Cefepime HCl 2,000 MG in Water for inj. (sterile) 20 ML IVP SCH (16:00)
[2021-07-28] MEDS ORDERED: Piperacillin/Tazobactam 3.375 GM in 0.9 % Sodium Chloride Mini Bag 100 ML IVPB SCH (16:00)
[2021-07-28] MEDS ORDERED: Insulin LISPRO 300 UNITS/3 ML VIAL SUBQ SCH ×2 (16:30→21:00)
[2021-07-28 16:40] LABS: Estimated Average Glucose 140 mg/dl; Hemoglobin A1C 6.5 %
[2021-07-28 16:48] LABS: INR 1.3; Prothrombin Time 14.7 Seconds (9.4-12.1)
[2021-07-28] MEDS ORDERED: *HR* Propofol 200 MG/20 ML VIAL IVP ONE (18:38)
[2021-07-28] MEDS: Insulin LISPRO 300 UNITS/3 ML VIAL SUBQ SCH (20:55)
[2021-07-28] MEDS: *HR* Heparin 5,000 UNIT/ML VIAL SQ SCH (21:20)
[2021-07-28] MEDS ORDERED: *HR* Heparin 5,000 UNIT/ML VIAL SQ SCH (22:00)
[2021-07-28] MEDS: D5% in Lactated Ringers 1,000 ML IVC SCH (23:07)
[2021-07-29] MEDS: Clindamycin 900 MG/50 ML 900 MG/50 ML IV.SOLN IVPB SCH ×3 (00:39→16:28)
[2021-07-29] MEDS ORDERED: 0.9 % Sodium Chloride 250 ML IVC ONE (04:00)
[2021-07-29 08:03] LABS: Hematocrit 22.2 % (37.5-50.1); Hemoglobin 7.1 g/dL (12.9-16.9); Mean Corpuscular Hemoglobin 29.3 pg (28.0-33.3); Mean Corpuscular Volume 91.7 fL (83.0-100.0); Mean Platelet Volume 10.8 fL (9.4-12.4); Platelet Count 252 K/mcL (140-400); Red Blood Count 2.42 M/mcL (4.19-5.50); Red Cell Distribution Width 14.9 % (11.5-14.5); White Blood Count 15.3 K/mcL (4.3-11.1)
[2021-07-29 08:17] LABS: Calcium 8.7 mg/dL (8.6-10.3); Potassium 4.9 mEq/L (3.5-5.1)
[2021-07-29] MEDS: *HR* Heparin 5,000 UNIT/ML VIAL SQ SCH ×3 (08:59→21:00)
[2021-07-29] MEDS: Insulin LISPRO 300 UNITS/3 ML VIAL SUBQ SCH ×4 (09:00→20:53)
[2021-07-29] MEDS ORDERED: 0.9 % Sodium Chloride 1,000 ML IVC SCH (14:45)
[2021-07-29] MEDS ORDERED: 0.9 % Sodium Chloride 500 ML IVC ONE (15:26)
[2021-07-29] MEDS ORDERED: Cefepime HCl 2,000 MG in Water for inj. (sterile) 20 ML IVP SCH (16:00)
[2021-07-29 16:13] LABS: Hematocrit 22.9 % (37.5-50.1); Hemoglobin 7.1 g/dL (12.9-16.9)
[2021-07-29 16:26] LABS: % Iron Saturation 12 % (20-55); Iron 21 mcg/dL (65-175); Transferrin 123 mg/dL (203-362); Vancomycin,Random 15 mcg/mL
[2021-07-29] MEDS: Cefepime HCl 2,000 MG in 0.9 % Sodium Chloride Mini Bag 100 ML IVPB SCH (16:27)
[2021-07-29] MEDS: *HR* Acetylcysteine 20% 600 MG/3 ML ORAL SYRINGE PO SCH ×2 (18:45→23:11)
[2021-07-29] MEDS: D5% in Lactated Ringers 1,000 ML IVC SCH (19:49)
[2021-07-30] MEDS: Clindamycin 900 MG/50 ML 900 MG/50 ML IV.SOLN IVPB SCH ×3 (00:27→15:26)
[2021-07-30] MEDS: D5% in Lactated Ringers 1,000 ML IVC SCH (00:28)
[2021-07-30 02:23] LABS: Basophils % 0.3 %; Eosinophils # 0.2 K/mcL (0.0-0.6); Eosinophils % 1.8 %; Hemoglobin 6.6 g/dL (12.9-16.9); Immature Granulocytes % 0.7 % (0-4); Lymphocytes # 1.6 K/mcL (0.6-4.6); Lymphocytes % 13.9 %; Mean Corpuscular HGB Conc 31.4 g/dL (31.6-35.5); Mean Corpuscular Hemoglobin 29.2 pg (28.0-33.3); Mean Corpuscular Volume 92.9 fL (83.0-100.0); Mean Platelet Volume 10.6 fL (9.4-12.4); Monocytes # 0.8 K/mcL (0.0-1.3); Monocytes % 6.8 %; Platelet Count 236 K/mcL (140-400); Red Blood Count 2.26 M/mcL (4.19-5.50); Red Cell Distribution Width 15.1 % (11.5-14.5); Segmented Neutrophils % 76.5 %; White Blood Count 11.8 K/mcL (4.3-11.1)
[2021-07-30 02:43] LABS: Calcium 8.4 mg/dL (8.6-10.3); Potassium 5.1 mEq/L (3.5-5.1)
[2021-07-30] MEDS: Cefepime HCl 2,000 MG in 0.9 % Sodium Chloride Mini Bag 100 ML IVPB SCH ×2 (02:56→15:25)
[2021-07-30] MEDS ORDERED: 0.9 % Sodium Chloride 1,000 ML IVC SCH ×2 (03:00→14:30)
[2021-07-30] MEDS ORDERED: 0.9 % Sodium Chloride 250 ML IVC SCH (04:30)
[2021-07-30 04:34] LABS: Magnesium 1.7 mg/dL (1.6-2.6)
[2021-07-30] MEDS: *HR* Heparin 5,000 UNIT/ML VIAL SQ SCH ×3 (04:38→19:35)
[2021-07-30] MEDS: *HR* Acetylcysteine 20% 600 MG/3 ML ORAL SYRINGE PO SCH ×2 (07:59→19:47)
[2021-07-30] MEDS: Insulin LISPRO 300 UNITS/3 ML VIAL SUBQ SCH ×4 (10:31→21:39)
[2021-07-30] MEDS ORDERED: *HR* FentaNYL (PF) 100 MCG/2 ML VIAL ONE (11:37)
[2021-07-30] MEDS ORDERED: *HR* Midazolam HCl 2 MG/2 ML VIAL ONE (11:38)
[2021-07-30] MEDS ORDERED: 0.9 % Sodium Chloride 1,000 ML ONE (11:38)
[2021-07-30] MEDS ORDERED: Heparin 1,000 UNITS/500 mL 500 ML ONE (12:47)
[2021-07-30] MEDS ORDERED: *HR* Heparin 10,000 UNIT/10 ML VIAL ONE (12:47)
[2021-07-30 16:49] LABS: Hemoglobin 7.9 g/dL (12.9-16.9)
[2021-07-30] MEDS ORDERED: 0.9 % Sodium Chloride 500 ML IVC ONE ×2 (17:17→22:42)
[2021-07-31] MEDS: Clindamycin 900 MG/50 ML 900 MG/50 ML IV.SOLN IVPB SCH ×4 (01:49→23:08)
[2021-07-31 02:28] LABS: Basophils % 0.3 %; Eosinophils # 0.3 K/mcL (0.0-0.6); Eosinophils % 2.6 %; Hematocrit 26.4 % (37.5-50.1); Hemoglobin 8.5 g/dL (12.9-16.9); Immature Granulocytes % 0.7 % (0-4); Lymphocytes # 1.2 K/mcL (0.6-4.6); Lymphocytes % 9.8 %; Mean Corpuscular HGB Conc 32.2 g/dL (31.6-35.5); Mean Corpuscular Hemoglobin 29.4 pg (28.0-33.3); Mean Corpuscular Volume 91.3 fL (83.0-100.0); Mean Platelet Volume 10.3 fL (9.4-12.4); Monocytes # 0.8 K/mcL (0.0-1.3); Monocytes % 6.3 %; Neutrophils # 9.6 K/mcL (1.6-8.9); Platelet Count 204 K/mcL (140-400); Red Blood Count 2.89 M/mcL (4.19-5.50); Red Cell Distribution Width 14.6 % (11.5-14.5); Segmented Neutrophils % 80.3 %
[2021-07-31 02:32] LABS: Calcium 8.2 mg/dL (8.6-10.3); Potassium 5.3 mEq/L (3.5-5.1)
[2021-07-31] MEDS: Cefepime HCl 2,000 MG in 0.9 % Sodium Chloride Mini Bag 100 ML IVPB SCH ×2 (04:10→15:15)
[2021-07-31] MEDS: *HR* Heparin 5,000 UNIT/ML VIAL SQ SCH ×3 (05:48→22:39)
[2021-07-31] MEDS ORDERED: Cholecalciferol (D-3) 1,000 UNIT (25MCG) TABLET PO SCH (09:00)
[2021-07-31] MEDS ORDERED: allopurinoL 100 MG TABLET PO SCH (09:00)
[2021-07-31] MEDS ORDERED: ceFAZolin 1,000 MG, Sodium Chloride IRRigation 1,000 ML IR ONE ×2 (10:00→21:40)
[2021-07-31] MEDS ORDERED: *HR* Midazolam HCl 2 MG/2 ML VIAL ONE (10:32)
[2021-07-31] MEDS ORDERED: *HR* FentaNYL (PF) 100 MCG/2 ML VIAL ONE ×2 (10:32→13:22)
[2021-07-31] MEDS ORDERED: Lidocaine HCL 4 ML Topical Solution (Laryng-O-Jet Kit Sterile Pak) TP ONE (10:32)
[2021-07-31] MEDS ORDERED: *HR* Succinylcholine 200 MG/10 ML VIAL IVP ONE (10:32)
[2021-07-31] MEDS ORDERED: *HR* Etomidate 40 MG/20 ML VIAL IVP ONE (10:32)
[2021-07-31] MEDS ORDERED: *HR* Phenylephrine 10 MG/ML VIAL ONE ×2 (10:32→17:06)
[2021-07-31] MEDS ORDERED: *HR* Rocuronium Bromide 50 MG/5 ML VIAL ONE ×4 (10:32→20:15)
[2021-07-31] MEDS ORDERED: Ondansetron 4 MG/2 ML VIAL ONE (10:32)
[2021-07-31] MEDS ORDERED: *HR* Propofol 200 MG/20 ML VIAL IVP ONE (10:32)
[2021-07-31] MEDS ORDERED: Lidocaine -MPF 2% 2 ML VIAL ONE (10:32)
[2021-07-31] MEDS ORDERED: *HR* Heparin 5,000 UNIT/ML VIAL ONE ×2 (10:33→15:40)
[2021-07-31] MEDS ORDERED: Heparin 1,000 UNITS/500 mL 500 ML ONE ×2 (10:33→20:54)
[2021-07-31] MEDS ORDERED: EPHEDrine 50 MG/ML VIAL ONE (10:33)
[2021-07-31] MEDS: Insulin LISPRO 300 UNITS/3 ML VIAL SUBQ SCH ×3 (11:15→23:07)
[2021-07-31] MEDS ORDERED: Sodium Bicarbonate 150 MEQ in Water for inj. (sterile) 1,000 ML IVC SCH (11:30)
[2021-07-31] MEDS ORDERED: Ondansetron 4 MG/2 ML VIAL IVP PRN ×2 (11:35→21:40)
[2021-07-31] MEDS ORDERED: *HR* HYDROmorphone PF 0.5 MG/0.5 ML SYRINGE IVP PRN (11:35)
[2021-07-31] MEDS ORDERED: *HR* Meperidine 25 MG/ML SYRINGE IVP PRN (11:35)
[2021-07-31 12:59] LABS: ABG Base Excess -8 mEq/L (-2 to 3); ABG Chloride 114 mEq/L (98-107); ABG Glucose 107 mg/dL (60-95); ABG HCO3 18 mEq/L (21-27); ABG Ionized Calcium 1.27 mmol/L (1.15-1.35); ABG Oxygen Saturation 100 % (95-98); ABG PCO2 37 mmHg (35-45); ABG PH 7.29 pH Units (7.32-7.45); ABG PO2 281 mmHg (85-104); ABG TCO2 19 mEq/L (20-26)
[2021-07-31 17:39] LABS: ABG Base Excess -5 mEq/L (-2 to 3); ABG Chloride 115 mEq/L (98-107); ABG Glucose 172 mg/dL (60-95); ABG HCO3 20 mEq/L (21-27); ABG Ionized Calcium 1.15 mmol/L (1.15-1.35); ABG Oxygen Saturation 100 % (95-98); ABG PCO2 36 mmHg (35-45); ABG PH 7.35 pH Units (7.32-7.45); ABG PO2 351 mmHg (85-104); ABG TCO2 21 mEq/L (20-26)
[2021-07-31] MEDS ORDERED: *HR* Norepinephrine 4 MG/4 ML VIAL IVC ONE (18:16)
[2021-07-31] MEDS ORDERED: *HR* Magnesium Sulfate 1 GM/2 ML VIAL ONE (19:00)
[2021-07-31 19:18] LABS: ABG Base Excess -10 mEq/L (-2 to 3); ABG Chloride 116 mEq/L (98-107); ABG Glucose 253 mg/dL (60-95); ABG HCO3 18 mEq/L (21-27); ABG Ionized Calcium 1.24 mmol/L (1.15-1.35); ABG Oxygen Saturation 100 % (95-98); ABG PCO2 45 mmHg (35-45); ABG PH 7.21 pH Units (7.32-7.45); ABG PO2 318 mmHg (85-104); ABG TCO2 19 mEq/L (20-26)
[2021-07-31 19:55] LABS: ABG Base Excess -8 mEq/L (-2 to 3); ABG Chloride 115 mEq/L (98-107); ABG Glucose 245 mg/dL (60-95); ABG HCO3 19 mEq/L (21-27); ABG Ionized Calcium 1.17 mmol/L (1.15-1.35); ABG Oxygen Saturation 100 % (95-98); ABG PCO2 44 mmHg (35-45); ABG PH 7.25 pH Units (7.32-7.45); ABG PO2 314 mmHg (85-104); ABG TCO2 20 mEq/L (20-26)
[2021-07-31 21:03] LABS: Hematocrit 29.7 % (37.5-50.1)
[2021-07-31 21:04] LABS: Hemoglobin 9.7 g/dL (12.9-16.9); Immature Platelets 2.6 % (1.1-6.1); Mean Corpuscular HGB Conc 32.7 g/dL (31.6-35.5); Mean Corpuscular Volume 88.9 fL (83.0-100.0); Mean Platelet Volume 9.9 fL (9.4-12.4); Red Blood Count 3.34 M/mcL (4.19-5.50); Red Cell Distribution Width 14.5 % (11.5-14.5); White Blood Count 15.2 K/mcL (4.3-11.1)
[2021-07-31] MEDS ORDERED: *HR* Midazolam HCl 5 MG/5 ML VIAL IVP ONE (21:05)
[2021-07-31] MEDS ORDERED: Lacri-Lube 3.5 GM TUBE ONE (21:23)
[2021-07-31] MEDS ORDERED: Dextrose Gel 15 GM/37.5 ML TUBE PO PRN ×2 (21:40)
[2021-07-31] MEDS ORDERED: Naloxone 0.4 MG/ML INJ IVP PRN (21:40)
[2021-07-31] MEDS ORDERED: D5% in Water 1,000 ML IVC PRN (21:40)
[2021-07-31] MEDS ORDERED: *HR* OxyCODONE Immed Rel 5 MG TABLET PO PRN ×2 (21:40)
[2021-07-31] MEDS ORDERED: *HR* Dextrose 50 % in Water (Syg) 50 ML SYRINGE IVP PRN (21:40)
[2021-07-31] MEDS ORDERED: 0.9 % Sodium Chloride 250 ML IVC SCH (21:40)
[2021-07-31] MEDS: 0.9 % Sodium Chloride 500 ML IVC ONE ×2 (22:39→23:08)
[2021-07-31] MEDS: FentaNYL (PF) 1,000 MCG/100 ML IV.SOLN IVC SCH (22:41)
[2021-07-31] MEDS: Midazolam HCl 50 MG/100 ML IV.SOLN IVC SCH (22:41)
[2021-07-31] MEDS: Sodium Bicarbonate 150 MEQ in Water for inj. (sterile) 1,000 ML IVC SCH ×2 (22:42→23:06)
[2021-07-31] MEDS: Norepinephrine 4 MG/254 ML IV.SOLN IVC SCH (22:42)
[2021-07-31 22:49] LABS: Hematocrit 29.7 % (37.5-50.1); Hemoglobin 9.9 g/dL (12.9-16.9); Mean Corpuscular HGB Conc 33.3 g/dL (31.6-35.5); Mean Corpuscular Hemoglobin 30.1 pg (28.0-33.3); Mean Corpuscular Volume 90.3 fL (83.0-100.0); Mean Platelet Volume 10.4 fL (9.4-12.4); Red Blood Count 3.29 M/mcL (4.19-5.50); Red Cell Distribution Width 14.6 % (11.5-14.5); White Blood Count 13.4 K/mcL (4.3-11.1)
[2021-07-31 22:50] LABS: Platelet Count 87 K/mcL (140-400)
[2021-07-31 22:52] LABS: Protein/Creatinine Ratio,Urine 0.62 mg/mg (0.00-0.20); Sodium, Urine 64.2 mEq/L
[2021-07-31 22:52] LABS: ABG Base Excess -4 mEq/L (-2 to 3); ABG HCO3 21 mEq/L (21-27); ABG Oxygen Saturation 100 % (95-98); ABG PCO2 36 mmHg (35-45); ABG PH 7.37 pH Units (7.32-7.45); ABG PO2 252 mmHg (85-104); ABG TCO2 22 mEq/L (20-26); Blood Gas VT 450 cc
[2021-07-31 22:57] LABS: Bacteria,Urine Few per hpf (None-Few); Bilirubin,Urine Negative (Negative); Blood,Urine Trace (Negative); Clarity,Urine Clear (Clear); Color,Urine Light-Yellow (Yellow); Glucose,Urine (UA) 500 mg/dL (Normal); Hyaline Casts,Urine Moderate per lpf (None Seen); Ketones,Urine Negative (Negative); Leukocyte Esterase,Urine Negative (Negative); Mucus,Urine Few per lpf (None-Few); Nitrite,Urine Negative (Negative); PH,Urine 5.5 pH Units (5.0-8.0); Protein,Urine 30 mg/dL (Neg-Trace); RBC,Urine 0-3 per hpf (0-3); Specific Gravity,Urine 1.021 (1.010-1.025); Squamous Epithelial Cell,Urine Few per hpf (None-Few); Urobilinogen,Urine Normal (Normal)
[2021-07-31 23:06] LABS: Alanine Aminotransferase 12 Units/L (7-52); Albumin 2.6 g/dL (3.5-5.7); Albumin/Globulin Ratio 1.6 (1.1-2.2); Alkaline Phosphatase 40 Units/L (34-104); Aspartate Amino Transferase 14 Units/L (13-39); BUN/Creatinine Ratio 23 (6-26); Bilirubin,Total 1.4 mg/dL (0.3-1.0); Blood Urea Nitrogen 32 mg/dL (8-23); Calcium 7.9 mg/dL (8.6-10.3); Carbon Dioxide 21 mEq/L (23-29); Chloride 115 mEq/L (98-107); Globulin 1.6 g/dL (2.4-3.5); Glucose 256 mg/dL (70-105); Magnesium 1.7 mg/dL (1.6-2.6); Osmolality,Calculated 304 (280-300); Potassium 5.6 mEq/L (3.5-5.1); Sodium 139 mEq/L (136-145); Total Protein 4.2 g/dL (6.4-8.9); Troponin I 0.05 ng/mL (< 0.04); eGFR For African Americans > 60 (> 60); eGFR For Non-African Americans 51 (> 60)
[2021-07-31] MEDS: D5% in Lactated Ringers 1,000 ML IVC SCH (23:07)
[2021-08-01] MEDS: Norepinephrine 4 MG/254 ML IV.SOLN IVC SCH (00:27)
[2021-08-01] MEDS: Cefepime HCl 2,000 MG in Water for inj. (sterile) 20 ML IVP SCH ×2 (00:35→13:07)
[2021-08-01] MEDS ORDERED: Artificial Tears SOLN 15 ML BOTTLE BOTH EYES PRN (00:57)
[2021-08-01 04:25] LABS: ABG Base Excess -6 mEq/L (-2 to 3); ABG HCO3 19 mEq/L (21-27); ABG Oxygen Saturation 98 % (95-98); ABG PCO2 32 mmHg (35-45); ABG PH 7.37 pH Units (7.32-7.45); ABG PO2 110 mmHg (85-104); ABG TCO2 20 mEq/L (20-26); Blood Gas VT 450 cc
[2021-08-01] MEDS: Artificial Tears SOLN 15 ML BOTTLE BOTH EYES SCH ×3 (04:39→11:26)
[2021-08-01 05:02] LABS: VBG Ionized Calcium 1.23 mmol/L (1.15-1.35)
[2021-08-01 05:08] LABS: Basophils # 0.1 K/mcL (0.0-0.2); Basophils % 0.3 %; Eosinophils % 0.1 %; Hematocrit 31.2 % (37.5-50.1); Hemoglobin 10.3 g/dL (12.9-16.9); Immature Granulocytes % 3.8 % (0-4); Lymphocytes # 1.3 K/mcL (0.6-4.6); Lymphocytes % 6.3 %; Mean Corpuscular Hemoglobin 29.5 pg (28.0-33.3); Mean Corpuscular Volume 89.4 fL (83.0-100.0); Mean Platelet Volume 10.7 fL (9.4-12.4); Monocytes # 1.1 K/mcL (0.0-1.3); Monocytes % 5.3 %; Neutrophils # 17.5 K/mcL (1.6-8.9); Platelet Count 109 K/mcL (140-400); Red Blood Count 3.49 M/mcL (4.19-5.50); Red Cell Distribution Width 14.7 % (11.5-14.5); Segmented Neutrophils % 84.2 %; White Blood Count 20.8 K/mcL (4.3-11.1)
[2021-08-01 05:26] LABS: Calcium 8.1 mg/dL (8.6-10.3); Magnesium 2.2 mg/dL (1.6-2.6); Phosphorous 3.7 mg/dL (2.7-4.5); Potassium 5.7 mEq/L (3.5-5.1)
[2021-08-01] MEDS: *HR* Heparin 5,000 UNIT/ML VIAL SQ SCH ×3 (06:20→21:51)
[2021-08-01] MEDS: Insulin LISPRO 300 UNITS/3 ML VIAL SUBQ SCH ×3 (07:59→13:42)
[2021-08-01] MEDS: Clindamycin 900 MG/50 ML 900 MG/50 ML IV.SOLN IVPB SCH ×2 (08:09→17:32)
[2021-08-01] MEDS: Chlorhexidine Rinse 15 ML MOUTHWASH MM SCH ×2 (08:14→21:50)
[2021-08-01] MEDS ORDERED: allopurinoL 100 MG TABLET PO SCH (09:00)
[2021-08-01] MEDS ORDERED: Cholecalciferol (D-3) 1,000 UNIT (25MCG) TABLET PO SCH (09:00)
[2021-08-01] MEDS ORDERED: Pantoprazole 40 MG VIAL IVP SCH (09:00)
[2021-08-01] MEDS ORDERED: SODIUM ZIRCONIUM CYCLOSILICATE 5 GM POWD.PACK PO SCH (09:30)
[2021-08-01] MEDS: Sodium Bicarbonate 150 MEQ in Water for inj. (sterile) 1,000 ML IVC SCH (13:20)
[2021-08-01] MEDS ORDERED: Insulin LISPRO 300 UNITS/3 ML VIAL SUBQ SCH (21:00)
[2021-08-01] MEDS: FentaNYL (PF) 1,000 MCG/100 ML IV.SOLN IVC SCH (21:50)
[2021-08-01] MEDS: Midazolam HCl 50 MG/100 ML IV.SOLN IVC SCH (21:51)
[2021-08-02] MEDS: Clindamycin 900 MG/50 ML 900 MG/50 ML IV.SOLN IVPB SCH ×4 (00:27→23:29)
[2021-08-02] MEDS: Cefepime HCl 2,000 MG in Water for inj. (sterile) 20 ML IVP SCH ×2 (00:27→12:55)
[2021-08-02 03:59] LABS: Basophils % 0.2 %; Eosinophils # 0.2 K/mcL (0.0-0.6); Eosinophils % 1.5 %; Hematocrit 25.5 % (37.5-50.1); Immature Granulocytes % 2.5 % (0-4); Lymphocytes # 1.4 K/mcL (0.6-4.6); Lymphocytes % 8.9 %; Mean Corpuscular HGB Conc 31.8 g/dL (31.6-35.5); Mean Corpuscular Hemoglobin 29.2 pg (28.0-33.3); Mean Corpuscular Volume 92.1 fL (83.0-100.0); Mean Platelet Volume 10.3 fL (9.4-12.4); Monocytes % 6.1 %; Neutrophils # 13.1 K/mcL (1.6-8.9); Platelet Count 112 K/mcL (140-400); Red Blood Count 2.77 M/mcL (4.19-5.50); Red Cell Distribution Width 15.2 % (11.5-14.5); Segmented Neutrophils % 80.8 %; White Blood Count 16.2 K/mcL (4.3-11.1)
[2021-08-02 04:02] LABS: Hemoglobin 8.1 g/dL (12.9-16.9)
[2021-08-02 04:14] LABS: Calcium 8.1 mg/dL (8.6-10.3); Potassium 4.6 mEq/L (3.5-5.1)
[2021-08-02] MEDS: Sodium Bicarbonate 150 MEQ in Water for inj. (sterile) 1,000 ML IVC SCH (04:24)
[2021-08-02] MEDS: *HR* Heparin 5,000 UNIT/ML VIAL SQ SCH ×4 (06:24→20:56)
[2021-08-02] MEDS ORDERED: *HR* OxyCODONE Immed Rel 5 MG TABLET PO PRN (07:29)
[2021-08-02] MEDS ORDERED: D5% in Water 1,000 ML IVC PRN (07:29)
[2021-08-02] MEDS ORDERED: Ondansetron 4 MG/2 ML VIAL IVP PRN (07:29)
[2021-08-02] MEDS ORDERED: Naloxone 0.4 MG/ML INJ IVP PRN (07:29)
[2021-08-02] MEDS ORDERED: Dextrose Gel 15 GM/37.5 ML TUBE PO PRN ×2 (07:29)
[2021-08-02] MEDS ORDERED: *HR* Dextrose 50 % in Water (Vial) 50 ML VIAL IVP PRN (07:29)
[2021-08-02] MEDS: Insulin LISPRO 300 UNITS/3 ML VIAL SUBQ SCH ×4 (08:47→20:50)
[2021-08-02] MEDS: *HR* OxyCODONE Immed Rel 5 MG TABLET PO PRN ×3 (08:52→23:27)
[2021-08-02] MEDS: allopurinoL 100 MG TABLET PO SCH (08:56)
[2021-08-02] MEDS: Cholecalciferol (D-3) 1,000 UNIT (25MCG) TABLET PO SCH (08:56)
[2021-08-02] MEDS: Pantoprazole 40 MG VIAL IVP SCH (08:56)
[2021-08-02] MEDS ORDERED: Water for inj. (sterile) 20 ML IV ONE (12:48)
[2021-08-03] MEDS: Cefepime HCl 2,000 MG in Water for inj. (sterile) 20 ML IVP SCH ×2 (02:58→14:45)
[2021-08-03 04:58] LABS: Basophils % 0.2 %; Eosinophils # 0.2 K/mcL (0.0-0.6); Eosinophils % 1.2 %; Hematocrit 23.2 % (37.5-50.1); Hemoglobin 7.5 g/dL (12.9-16.9); Immature Granulocytes % 1.8 % (0-4); Lymphocytes # 1.1 K/mcL (0.6-4.6); Lymphocytes % 7.5 %; Mean Corpuscular HGB Conc 32.3 g/dL (31.6-35.5); Mean Corpuscular Hemoglobin 29.6 pg (28.0-33.3); Mean Corpuscular Volume 91.7 fL (83.0-100.0); Mean Platelet Volume 10.7 fL (9.4-12.4); Monocytes % 6.6 %; Neutrophils # 12.1 K/mcL (1.6-8.9); Platelet Count 130 K/mcL (140-400); Red Blood Count 2.53 M/mcL (4.19-5.50); Red Cell Distribution Width 15.4 % (11.5-14.5); Segmented Neutrophils % 82.7 %; White Blood Count 14.7 K/mcL (4.3-11.1)
[2021-08-03 05:12] LABS: Calcium 8.6 mg/dL (8.6-10.3); Potassium 4.9 mEq/L (3.5-5.1)
[2021-08-03] MEDS: *HR* Heparin 5,000 UNIT/ML VIAL SQ SCH ×3 (05:29→20:48)
[2021-08-03] MEDS: Insulin LISPRO 300 UNITS/3 ML VIAL SUBQ SCH ×4 (08:32→20:47)
[2021-08-03] MEDS: allopurinoL 100 MG TABLET PO SCH (08:52)
[2021-08-03] MEDS: Pantoprazole 40 MG VIAL IVP SCH (08:52)
[2021-08-03] MEDS: Cholecalciferol (D-3) 1,000 UNIT (25MCG) TABLET PO SCH (08:52)
[2021-08-03] MEDS: Clindamycin 900 MG/50 ML 900 MG/50 ML IV.SOLN IVPB SCH ×2 (08:53→15:42)
[2021-08-03] MEDS ORDERED: Famotidine 20 MG/2 ML VIAL IVP ONE (11:06)
[2021-08-03] MEDS ORDERED: Ondansetron 4 MG/2 ML VIAL IVP PRN (11:10)
[2021-08-03] MEDS ORDERED: *HR* HYDROmorphone PF 0.5 MG/0.5 ML SYRINGE IVP PRN (11:10)
[2021-08-03] MEDS ORDERED: *HR* OxyCODONE Immed Rel 5 MG TABLET PO PRN (11:10)
[2021-08-03] MEDS ORDERED: 0.9 % Sodium Chloride 1,000 ML IVC SCH (11:15)
[2021-08-03] MEDS ORDERED: Lidocaine -MPF 2% 2 ML VIAL ONE (13:27)
[2021-08-03] MEDS ORDERED: Ondansetron 4 MG/2 ML VIAL ONE (13:27)
[2021-08-03] MEDS ORDERED: Lidocaine 1% 20 ML MDV ONE (13:39)
[2021-08-03] MEDS ORDERED: *HR* FentaNYL (PF) 100 MCG/2 ML VIAL ONE (14:20)
[2021-08-04] MEDS: Cefepime HCl 2,000 MG in Water for inj. (sterile) 20 ML IVP SCH ×2 (01:08→19:46)
[2021-08-04] MEDS: Clindamycin 900 MG/50 ML 900 MG/50 ML IV.SOLN IVPB SCH ×2 (01:08→08:30)
[2021-08-04 01:50] LABS: Basophils % 0.2 %; Eosinophils # 0.3 K/mcL (0.0-0.6); Hematocrit 20.7 % (37.5-50.1); Hemoglobin 6.6 g/dL (12.9-16.9); Immature Granulocytes % 2.2 % (0-4); Lymphocytes # 1.2 K/mcL (0.6-4.6); Lymphocytes % 9.4 %; Mean Corpuscular HGB Conc 31.9 g/dL (31.6-35.5); Mean Corpuscular Hemoglobin 29.1 pg (28.0-33.3); Mean Corpuscular Volume 91.2 fL (83.0-100.0); Mean Platelet Volume 10.6 fL (9.4-12.4); Monocytes # 0.7 K/mcL (0.0-1.3); Monocytes % 5.4 %; Neutrophils # 10.4 K/mcL (1.6-8.9); Platelet Count 135 K/mcL (140-400); Red Blood Count 2.27 M/mcL (4.19-5.50); Red Cell Distribution Width 15.4 % (11.5-14.5); Segmented Neutrophils % 80.8 %; White Blood Count 12.9 K/mcL (4.3-11.1)
[2021-08-04 02:09] LABS: Calcium 8.1 mg/dL (8.6-10.3); Potassium 4.5 mEq/L (3.5-5.1)
[2021-08-04] MEDS: Pantoprazole 40 MG VIAL IVP SCH (08:29)
[2021-08-04] MEDS: *HR* Heparin 5,000 UNIT/ML VIAL SQ SCH ×3 (08:29→22:32)
[2021-08-04] MEDS: allopurinoL 100 MG TABLET PO SCH (08:30)
[2021-08-04] MEDS: Cholecalciferol (D-3) 1,000 UNIT (25MCG) TABLET PO SCH (08:30)
[2021-08-04] MEDS ORDERED: 0.9 % Sodium Chloride 250 ML ONE (10:42)
[2021-08-04] MEDS: Insulin LISPRO 300 UNITS/3 ML VIAL SUBQ SCH ×4 (11:02→22:31)
[2021-08-04 16:20] LABS: Hematocrit 27.3 % (37.5-50.1)
[2021-08-04 16:21] LABS: Hemoglobin 8.8 g/dL (12.9-16.9)
[2021-08-04] MEDS: metroNIDAZOLE 500 MG TABLET PO SCH (20:26)
[2021-08-05] MEDS: Cefepime HCl 2,000 MG in Water for inj. (sterile) 20 ML IVP SCH ×2 (02:15→15:09)
[2021-08-05] MEDS: *HR* Heparin 5,000 UNIT/ML VIAL SQ SCH ×3 (05:54→20:45)
[2021-08-05 06:20] LABS: Basophils # 0.1 K/mcL (0.0-0.2); Basophils % 0.3 %; Eosinophils # 0.2 K/mcL (0.0-0.6); Eosinophils % 1.6 %; Hematocrit 26.6 % (37.5-50.1); Hemoglobin 8.5 g/dL (12.9-16.9); Immature Granulocytes % 3.7 % (0-4); Lymphocytes # 1.4 K/mcL (0.6-4.6); Lymphocytes % 9.7 %; Mean Corpuscular Hemoglobin 28.7 pg (28.0-33.3); Mean Corpuscular Volume 89.9 fL (83.0-100.0); Mean Platelet Volume 10.9 fL (9.4-12.4); Monocytes # 0.9 K/mcL (0.0-1.3); Monocytes % 5.9 %; Neutrophils # 11.3 K/mcL (1.6-8.9); Nucleated Red Blood Cells 0.1 /100 WBC (0); Platelet Count 166 K/mcL (140-400); Red Blood Count 2.96 M/mcL (4.19-5.50); Red Cell Distribution Width 15.3 % (11.5-14.5); Segmented Neutrophils % 78.8 %; White Blood Count 14.4 K/mcL (4.3-11.1)
[2021-08-05 06:23] LABS: Calcium 8.3 mg/dL (8.6-10.3); Potassium 4.5 mEq/L (3.5-5.1)
[2021-08-05] MEDS: Insulin LISPRO 300 UNITS/3 ML VIAL SUBQ SCH ×4 (08:32→20:44)
[2021-08-05] MEDS: allopurinoL 100 MG TABLET PO SCH (09:16)
[2021-08-05] MEDS: metroNIDAZOLE 500 MG TABLET PO SCH ×3 (09:16→20:57)
[2021-08-05] MEDS: Cholecalciferol (D-3) 1,000 UNIT (25MCG) TABLET PO SCH (09:16)
[2021-08-05] MEDS: Pantoprazole 40 MG VIAL IVP SCH (09:17)
[2021-08-05] MEDS: Aspirin Enteric Coated 81 MG Tablet PO SCH (12:24)
[2021-08-06] MEDS: Cefepime HCl 2,000 MG in Water for inj. (sterile) 20 ML IVP SCH ×2 (02:39→15:19)
[2021-08-06] MEDS: *HR* Heparin 5,000 UNIT/ML VIAL SQ SCH ×3 (05:30→20:57)
[2021-08-06] MEDS ORDERED: polyethylene glycoL 3350 17 GM POWD.PACK PO ONE (08:26)
[2021-08-06] MEDS: Insulin LISPRO 300 UNITS/3 ML VIAL SUBQ SCH ×4 (08:38→20:57)
[2021-08-06] MEDS: Aspirin Enteric Coated 81 MG Tablet PO SCH (08:54)
[2021-08-06] MEDS: allopurinoL 100 MG TABLET PO SCH (08:54)
[2021-08-06] MEDS: metroNIDAZOLE 500 MG TABLET PO SCH ×3 (08:54→20:57)
[2021-08-06] MEDS: Sennosides/Docusate Sodium TABLET PO SCH ×2 (08:54→20:57)
[2021-08-06] MEDS: Cholecalciferol (D-3) 1,000 UNIT (25MCG) TABLET PO SCH (08:55)
[2021-08-06] MEDS: Pantoprazole 40 MG VIAL IVP SCH (08:55)
[2021-08-06] MEDS: Furosemide 40 MG/4 ML VIAL IVP SCH (12:05)
[2021-08-07] MEDS: Cefepime HCl 2,000 MG in Water for inj. (sterile) 20 ML IVP SCH ×2 (02:43→15:14)
[2021-08-07] MEDS: *HR* Heparin 5,000 UNIT/ML VIAL SQ SCH ×3 (07:03→20:42)
[2021-08-07] MEDS: Insulin LISPRO 300 UNITS/3 ML VIAL SUBQ SCH ×4 (07:44→20:42)
[2021-08-07] MEDS: Sennosides/Docusate Sodium TABLET PO SCH ×2 (07:44→20:42)
[2021-08-07] MEDS: Cholecalciferol (D-3) 1,000 UNIT (25MCG) TABLET PO SCH (07:44)
[2021-08-07] MEDS: Aspirin Enteric Coated 81 MG Tablet PO SCH (07:45)
[2021-08-07] MEDS: allopurinoL 100 MG TABLET PO SCH (07:45)
[2021-08-07] MEDS: metroNIDAZOLE 500 MG TABLET PO SCH ×3 (07:45→20:42)
[2021-08-07] MEDS: Furosemide 40 MG/4 ML VIAL IVP SCH (08:00)
[2021-08-07 11:22] LABS: Basophils # 0.1 K/mcL (0.0-0.2); Basophils % 0.4 %; Eosinophils # 0.3 K/mcL (0.0-0.6); Eosinophils % 1.4 %; Hematocrit 29.4 % (37.5-50.1); Hemoglobin 9.7 g/dL (12.9-16.9); Lymphocytes % 5.1 %; Mean Platelet Volume 10.7 fL (9.4-12.4); Neutrophils # 16.6 K/mcL (1.6-8.9); Platelet Count 260 K/mcL (140-400); Red Blood Count 3.34 M/mcL (4.19-5.50); Red Cell Distribution Width 15.1 % (11.5-14.5); Segmented Neutrophils % 85.1 %; White Blood Count 19.5 K/mcL (4.3-11.1)
[2021-08-07 11:37] LABS: Calcium 8.3 mg/dL (8.6-10.3); Magnesium 1.6 mg/dL (1.6-2.6); Potassium 4.2 mEq/L (3.5-5.1)
[2021-08-08] MEDS: Cefepime HCl 2,000 MG in Water for inj. (sterile) 20 ML IVP SCH (02:18)
[2021-08-08] MEDS: *HR* Heparin 5,000 UNIT/ML VIAL SQ SCH (06:16)
[2021-08-08 06:49] LABS: BUN/Creatinine Ratio 20 (6-26); Blood Urea Nitrogen 28 mg/dL (8-23); Calcium 8.3 mg/dL (8.6-10.3); Carbon Dioxide 24 mEq/L (23-29); Chloride 104 mEq/L (98-107); Glucose 118 mg/dL (70-105); Osmolality,Calculated 283 (280-300); Potassium 3.9 mEq/L (3.5-5.1); Sodium 133 mEq/L (136-145); eGFR For African Americans > 60 (> 60); eGFR For Non-African Americans 50 (> 60)
[2021-08-08] MEDS: metroNIDAZOLE 500 MG TABLET PO SCH (08:16)
[2021-08-08] MEDS: Sennosides/Docusate Sodium TABLET PO SCH (08:16)
[2021-08-08] MEDS: Cholecalciferol (D-3) 1,000 UNIT (25MCG) TABLET PO SCH (08:16)
[2021-08-08] MEDS: allopurinoL 100 MG TABLET PO SCH (08:17)
[2021-08-08] MEDS: Insulin LISPRO 300 UNITS/3 ML VIAL SUBQ SCH ×2 (08:17→12:25)
[2021-08-08] MEDS: Aspirin Enteric Coated 81 MG Tablet PO SCH (08:17)
[2021-08-08 11:38] VITALS: BP 87/54; PULSE 70; TEMP 97.7; O2SAT 97
[2021-08-08 11:50] LABS: Adenovirus Not Detected (Not Detect); Bordetella Pertussis Not Detected (Not Detect); Chlamydophila pneumoniae Not Detected (Not Detect); Coronavirus 229E Not Detected (Not Detect); Coronavirus HKU1 Not Detected (Not Detect); Coronavirus NL63 Not Detected (Not Detect); Coronavirus OC43 Not Detected (Not Detect); Human Metapneumovirus Not Detected (Not Detect); Human Rhinovirus/Enterovirus Not Detected (Not Detect); Influenza A Subtype 2009 H1 Not Detected (Not Detect); Influenza B Not Detected (Not Detect); Mycoplasma pneumoniae Not Detected (Not Detect); Parainfluenza Virus 1 Not Detected (Not Detect); Parainfluenza Virus 2 Not Detected (Not Detect); Parainfluenza Virus 3 Not Detected (Not Detect); Parainfluenza Virus 4 Not Detected (Not Detect); Respiratory Syncytial Virus Not Detected (Not Detect); SARS-CoV-2 Not Detected (Not Detect)
== END 2021-08-08 13:00 | DRG 853 ==
LOC: EMEROOARM 09:41 → 4WAOSI 09:41 → SUATTDRO 07-29 16:06 → 4WAOSI 07-29 21:56 → 2NNU 07-31 16:26 → ICNU 07-31 22:13 → 2NNU 08-02 07:00 → 4WAOSI 08-06 09:29
PROVIDERS: ADMIT Internal Medicine; ATTEND Internal Medicine

== ENCOUNTER 2021-08-14 21:22 | Inpatient (IN) ==
[2021-08-15] MEDS ORDERED: Naloxone 0.4 MG/ML INJ IVP PRN (04:27)
[2021-08-15] MEDS ORDERED: D5% in Water 1,000 ML IVC PRN (04:29)
[2021-08-15] MEDS ORDERED: Dextrose Gel 15 GM/37.5 ML TUBE PO PRN ×2 (04:29)
[2021-08-15] MEDS ORDERED: *HR* Dextrose 50 % in Water (Syg) 50 ML SYRINGE IVP PRN (04:29)
[2021-08-15] MEDS: Norepinephrine 4 MG/254 ML IV.SOLN IVC SCH ×3 (05:00→17:41)
[2021-08-15 05:08] LABS: Basophils # 0.1 K/mcL (0.0-0.2); Basophils % 0.5 %; Eosinophils # 0.2 K/mcL (0.0-0.6); Eosinophils % 1.1 %; Hematocrit 28.6 % (37.5-50.1); Hemoglobin 9.2 g/dL (12.9-16.9); Immature Granulocytes % 1.7 % (0-4); Lymphocytes # 0.9 K/mcL (0.6-4.6); Lymphocytes % 4.4 %; Mean Corpuscular HGB Conc 32.2 g/dL (31.6-35.5); Mean Corpuscular Hemoglobin 29.5 pg (28.0-33.3); Mean Corpuscular Volume 91.7 fL (83.0-100.0); Monocytes # 1.3 K/mcL (0.0-1.3); Monocytes % 6.4 %; Neutrophils # 16.8 K/mcL (1.6-8.9); Platelet Count 427 K/mcL (140-400); Red Blood Count 3.12 M/mcL (4.19-5.50); Red Cell Distribution Width 15.7 % (11.5-14.5); Segmented Neutrophils % 85.9 %; White Blood Count 19.5 K/mcL (4.3-11.1)
[2021-08-15 05:13] LABS: VBG Ionized Calcium 1.09 mmol/L (1.15-1.35)
[2021-08-15 05:28] LABS: Magnesium 1.7 mg/dL (1.6-2.6); Phosphorous 2.5 mg/dL (2.7-4.5)
[2021-08-15 05:38] LABS: Albumin 3.2 g/dL (3.5-5.7); Albumin/Globulin Ratio 1.3 (1.1-2.2); Bilirubin,Total 0.6 mg/dL (0.3-1.0); Calcium 8.1 mg/dL (8.6-10.3); Globulin 2.4 g/dL (2.4-3.5); Potassium 3.7 mEq/L (3.5-5.1); Total Protein 5.6 g/dL (6.4-8.9); Troponin I 0.7 ng/mL (< 0.04)
[2021-08-15 05:50] LABS: Thyroid Stimulating Hormone 2.38 mcIU/mL (0.340-5.600)
[2021-08-15] MEDS: D5% in 0.9% NACL 1,000 ML IVC SCH (06:04)
[2021-08-15] MEDS: Calcium Gluconate 1gm/50mL 1 GM/50 ML BAG IVPB SCH ×2 (06:05→10:09)
[2021-08-15] MEDS ORDERED: Perflutren Lipid Microsphere 1.3 ML in 0.9 % Sodium Chloride 8.7 ML IVP PRN (06:11)
[2021-08-15] MEDS: Piperacillin/Tazobactam 3.375 GM in 0.9 % Sodium Chloride Mini Bag 100 ML IVPB SCH ×3 (10:10→22:28)
[2021-08-15] MEDS: Aspirin Enteric Coated 81 MG Tablet PO SCH (10:49)
[2021-08-15 20:56] LABS: Calcium 8.3 mg/dL (8.6-10.3); Potassium 3.7 mEq/L (3.5-5.1)
[2021-08-15 21:02] LABS: Troponin I 1.29 ng/mL (< 0.04)
[2021-08-16 03:24] LABS: Basophils # 0.1 K/mcL (0.0-0.2); Basophils % 0.7 %; Eosinophils # 0.3 K/mcL (0.0-0.6); Eosinophils % 2.7 %; Hematocrit 25.1 % (37.5-50.1); Hemoglobin 8.2 g/dL (12.9-16.9); Immature Granulocytes % 1.6 % (0-4); Lymphocytes # 0.8 K/mcL (0.6-4.6); Lymphocytes % 7.6 %; Mean Corpuscular HGB Conc 32.7 g/dL (31.6-35.5); Mean Corpuscular Hemoglobin 29.8 pg (28.0-33.3); Mean Corpuscular Volume 91.3 fL (83.0-100.0); Mean Platelet Volume 10.3 fL (9.4-12.4); Monocytes # 0.8 K/mcL (0.0-1.3); Monocytes % 7.3 %; Neutrophils # 8.5 K/mcL (1.6-8.9); Platelet Count 318 K/mcL (140-400); Red Blood Count 2.75 M/mcL (4.19-5.50); Segmented Neutrophils % 80.1 %; White Blood Count 10.5 K/mcL (4.3-11.1)
[2021-08-16 03:31] LABS: VBG Ionized Calcium 1.15 mmol/L (1.15-1.35)
[2021-08-16 03:54] LABS: Calcium 8.2 mg/dL (8.6-10.3); Magnesium 2.1 mg/dL (1.6-2.6); Phosphorous 2.5 mg/dL (2.7-4.5); Potassium 3.7 mEq/L (3.5-5.1)
[2021-08-16] MEDS: Piperacillin/Tazobactam 3.375 GM in 0.9 % Sodium Chloride Mini Bag 100 ML IVPB SCH ×2 (04:59→20:11)
[2021-08-16] MEDS ORDERED: Ringers Solution, Lactated 500 ML IVC ONE (05:00)
[2021-08-16] MEDS ORDERED: *HR* Enoxaparin 40 MG/0.4 ML SYRINGE SQ SCH (06:00)
[2021-08-16] MEDS: D5% in 0.9% NACL 1,000 ML IVC SCH (06:11)
[2021-08-16] MEDS: Aspirin Enteric Coated 81 MG Tablet PO SCH (10:06)
[2021-08-16] MEDS ORDERED: Dextrose Gel 15 GM/37.5 ML TUBE PO PRN ×2 (16:01)
[2021-08-16] MEDS ORDERED: *HR* Dextrose 50 % in Water (Syg) 50 ML SYRINGE IVP PRN (16:01)
[2021-08-16] MEDS ORDERED: D5% in Water 1,000 ML IVC PRN (16:01)
[2021-08-16] MEDS ORDERED: Naloxone 0.4 MG/ML INJ IVP PRN (16:01)
[2021-08-16] MEDS ORDERED: *HR* Alteplase (Cathflo) 2 MG VIAL IVP ONE (16:21)
[2021-08-16] MEDS ORDERED: Ringers Solution, Lactated 1,000 ML IVC ONE (20:28)
[2021-08-17] MEDS: Norepinephrine 4 MG/254 ML IV.SOLN IVC SCH ×3 (00:50→20:46)
[2021-08-17] MEDS: Piperacillin/Tazobactam 3.375 GM in 0.9 % Sodium Chloride Mini Bag 100 ML IVPB SCH ×2 (05:45→18:20)
[2021-08-17] MEDS ORDERED: *HR* Enoxaparin 30 MG/0.3 ML SYRINGE SQ SCH ×2 (06:00)
[2021-08-17 07:18] LABS: Basophils # 0.1 K/mcL (0.0-0.2); Basophils % 0.7 %; Eosinophils # 0.1 K/mcL (0.0-0.6); Eosinophils % 0.6 %; Hematocrit 25.8 % (37.5-50.1); Hemoglobin 8.1 g/dL (12.9-16.9); Immature Granulocytes % 2.5 % (0-4); Lymphocytes % 5.7 %; Mean Corpuscular HGB Conc 31.4 g/dL (31.6-35.5); Mean Corpuscular Volume 92.5 fL (83.0-100.0); Mean Platelet Volume 10.1 fL (9.4-12.4); Monocytes # 1.2 K/mcL (0.0-1.3); Neutrophils # 14.5 K/mcL (1.6-8.9); Platelet Count 332 K/mcL (140-400); Red Blood Count 2.79 M/mcL (4.19-5.50); Red Cell Distribution Width 16.1 % (11.5-14.5); Segmented Neutrophils % 83.5 %; White Blood Count 17.4 K/mcL (4.3-11.1)
[2021-08-17 07:19] LABS: VBG Ionized Calcium 1.08 mmol/L (1.15-1.35)
[2021-08-17 07:39] LABS: Calcium 8.3 mg/dL (8.6-10.3); Phosphorous 3.2 mg/dL (2.7-4.5)
[2021-08-17] MEDS ORDERED: Aspirin Enteric Coated 81 MG Tablet PO SCH (09:00)
[2021-08-17] MEDS ORDERED: Nystatin POWDER 30 GM BOTTLE TP SCH (10:15)
[2021-08-17] MEDS ORDERED: SODIUM BICARBONATE IVC SCH (12:45)
[2021-08-17] MEDS ORDERED: SODIUM CHLORIDE 0.45% IVC SCH (12:45)
[2021-08-17] MEDS ORDERED: Sodium Bicarbonate 75 MEQ in 0.45 % Sodium Chloride 1,000 ML IVC SCH (14:15)
[2021-08-17 14:53] LABS: Amorphous Sediment,Urine Few per hpf (None-Few); Bacteria,Urine Few per hpf (None-Few); Bilirubin,Urine Negative (Negative); Blood,Urine Moderate (Negative); Clarity,Urine Turbid (Clear); Color,Urine Yellow (Yellow); Glucose,Urine (UA) 300 mg/dL (Normal); Ketones,Urine Negative (Negative); Leukocyte Esterase,Urine Negative (Negative); Mucus,Urine Few per lpf (None-Few); Nitrite,Urine Negative (Negative); Protein,Urine 200 mg/dL (Neg-Trace); Specific Gravity,Urine 1.018 (1.010-1.025); Squamous Epithelial Cell,Urine Few per hpf (None-Few); Urobilinogen,Urine Normal (Normal)
[2021-08-17] MEDS ORDERED: D5% in Water 1,000 ML IVC PRN (16:26)
[2021-08-17] MEDS ORDERED: *HR* Dextrose 50 % in Water (Syg) 50 ML SYRINGE IVP PRN (16:26)
[2021-08-17] MEDS ORDERED: Dextrose Gel 15 GM/37.5 ML TUBE PO PRN ×2 (16:26)
[2021-08-17] MEDS ORDERED: Naloxone 0.4 MG/ML INJ IVP PRN (16:26)
[2021-08-17] MEDS ORDERED: Piperacillin/Tazobactam 3.375 GM in 0.9 % Sodium Chloride Mini Bag 100 ML IVPB SCH (18:00)
[2021-08-17] MEDS: Nystatin POWDER 30 GM BOTTLE TP SCH (20:42)
[2021-08-17] MEDS: Sodium Bicarbonate 75 MEQ in 0.45 % Sodium Chloride 1,000 ML IVC SCH (20:45)
[2021-08-17] MEDS ORDERED: Famotidine 20 MG TABLET PO SCH (21:00)
[2021-08-17 21:07] LABS: Protein/Creatinine Ratio,Urine 8.27 mg/mg (0.00-0.20)
[2021-08-18] MEDS: Sodium Bicarbonate 75 MEQ in 0.45 % Sodium Chloride 1,000 ML IVC SCH
[2021-08-18] MEDS: Norepinephrine 4 MG/254 ML IV.SOLN IVC SCH ×2 (03:38→20:53)
[2021-08-18 03:43] LABS: Basophils # 0.1 K/mcL (0.0-0.2); Basophils % 0.5 %; Eosinophils # 0.2 K/mcL (0.0-0.6); Eosinophils % 1.1 %; Hematocrit 23.5 % (37.5-50.1); Hemoglobin 7.6 g/dL (12.9-16.9); Immature Granulocytes % 4.3 % (0-4); Lymphocytes # 1.1 K/mcL (0.6-4.6); Lymphocytes % 7.3 %; Mean Corpuscular HGB Conc 32.3 g/dL (31.6-35.5); Mean Corpuscular Hemoglobin 29.7 pg (28.0-33.3); Mean Corpuscular Volume 91.8 fL (83.0-100.0); Mean Platelet Volume 10.6 fL (9.4-12.4); Monocytes # 1.3 K/mcL (0.0-1.3); Monocytes % 8.5 %; Neutrophils # 11.9 K/mcL (1.6-8.9); Nucleated Red Blood Cells 0.3 /100 WBC (0); Platelet Count 297 K/mcL (140-400); Red Blood Count 2.56 M/mcL (4.19-5.50); Segmented Neutrophils % 78.3 %; White Blood Count 15.1 K/mcL (4.3-11.1)
[2021-08-18 03:46] LABS: VBG Ionized Calcium 1.09 mmol/L (1.15-1.35)
[2021-08-18 04:00] LABS: Calcium 7.9 mg/dL (8.6-10.3); Phosphorous 3.3 mg/dL (2.7-4.5); Potassium 3.9 mEq/L (3.5-5.1)
[2021-08-18] MEDS: Piperacillin/Tazobactam 3.375 GM in 0.9 % Sodium Chloride Mini Bag 100 ML IVPB SCH ×2 (05:28→18:00)
[2021-08-18] MEDS ORDERED: *HR* Enoxaparin 30 MG/0.3 ML SYRINGE SQ SCH (06:00)
[2021-08-18] MEDS: Aspirin Enteric Coated 81 MG Tablet PO SCH (07:45)
[2021-08-18] MEDS: Nystatin POWDER 30 GM BOTTLE TP SCH ×2 (07:45→20:52)
[2021-08-18 09:19] LABS: Uric Acid 6.1 mg/dL (2.3-7.6)
[2021-08-18] MEDS ORDERED: Sodium Bicarbonate 75 MEQ in 0.45 % Sodium Chloride 1,000 ML IVC SCH ×2 (10:15→20:15)
[2021-08-18] MEDS ORDERED: Albumin 25% 25gram/100mL 25 GM/100 ML IV.SOLN IVPB SCH (16:00)
[2021-08-18 16:14] LABS: Hepatitis B Surface Antigen Nonreactive (Nonreactive)
[2021-08-18 16:43] LABS: Hepatitis B Core IgM Nonreactive (Nonreactive); Hepatitis C Virus Antibody Nonreactive (Nonreactive)
[2021-08-18 16:45] LABS: Hepatitis A Antibody IgM Nonreactive (Nonreactive)
[2021-08-18] MEDS: Albumin 25% 25gram/100mL 25 GM/100 ML IV.SOLN IVPB SCH (20:51)
[2021-08-19] MEDS: Pantoprazole 40 MG VIAL IVP SCH ×2 (05:02→17:29)
[2021-08-19] MEDS: Albumin 25% 25gram/100mL 25 GM/100 ML IV.SOLN IVPB SCH ×2 (05:02→17:29)
[2021-08-19] MEDS: Piperacillin/Tazobactam 3.375 GM in 0.9 % Sodium Chloride Mini Bag 100 ML IVPB SCH ×2 (05:02→17:29)
[2021-08-19 06:03] LABS: VBG Ionized Calcium 0.69 mmol/L (1.15-1.35)
[2021-08-19 06:58] LABS: Calcium 7.6 mg/dL (8.6-10.3); Phosphorous 3.7 mg/dL (2.7-4.5); Potassium 4.2 mEq/L (3.5-5.1)
[2021-08-19] MEDS: Calcium Gluconate 1gm/50mL 1 GM/50 ML BAG IVPB SCH ×3 (08:00→10:57)
[2021-08-19] MEDS: Aspirin Enteric Coated 81 MG Tablet PO SCH (08:00)
[2021-08-19] MEDS: Nystatin POWDER 30 GM BOTTLE TP SCH ×2 (08:00→20:50)
[2021-08-19 08:41] LABS: Magnesium 1.9 mg/dL (1.6-2.6)
[2021-08-19] MEDS: Norepinephrine 4 MG/254 ML IV.SOLN IVC SCH (09:32)
[2021-08-19 10:29] LABS: Basophils # 0.1 K/mcL (0.0-0.2); Basophils % 0.5 %; Eosinophils # 0.1 K/mcL (0.0-0.6); Eosinophils % 0.3 %; Hematocrit 24.6 % (37.5-50.1); Hemoglobin 7.9 g/dL (12.9-16.9); Immature Granulocytes % 4.2 % (0-4); Lymphocytes # 1.5 K/mcL (0.6-4.6); Lymphocytes % 7.1 %; Mean Corpuscular HGB Conc 32.1 g/dL (31.6-35.5); Mean Corpuscular Hemoglobin 29.9 pg (28.0-33.3); Mean Corpuscular Volume 93.2 fL (83.0-100.0); Mean Platelet Volume 11.2 fL (9.4-12.4); Monocytes # 1.9 K/mcL (0.0-1.3); Neutrophils # 16.3 K/mcL (1.6-8.9); Nucleated Red Blood Cells 1.1 /100 WBC (0); Platelet Count 271 K/mcL (140-400); Red Blood Count 2.64 M/mcL (4.19-5.50); Red Cell Distribution Width 16.4 % (11.5-14.5); Segmented Neutrophils % 78.9 %; White Blood Count 20.7 K/mcL (4.3-11.1)
[2021-08-19] MEDS ORDERED: 0.9 % Sodium Chloride 500 ML ONE (10:36)
[2021-08-19 11:39] LABS: Complement C3 54 mg/dL (87-200); Rheumatoid Factor < 10 IU/mL (Less than 14)
[2021-08-19 12:04] LABS: Vitamin D 25 Hydroxy 27 ng/mL (30-80)
[2021-08-19 12:36] LABS: Total Volume 24 Hour,Urine 0.35 Liters (0.80-1.80)
[2021-08-19] MEDS ORDERED: Lidocaine -MPF 2% 5 ML VIAL ONE (14:01)
[2021-08-19] MEDS ORDERED: *HR* Propofol 200 MG/20 ML VIAL IVP ONE (14:01)
[2021-08-19 17:02] LABS: Sodium, Urine 29.8 mEq/L
[2021-08-19 19:01] LABS: Thyroid Stimulating Hormone 2.668 mcIU/mL (0.340-5.600)
[2021-08-19 21:20] LABS: Bilirubin,Urine Negative (Negative); Blood,Urine Moderate (Negative); Clarity,Urine Turbid (Clear); Color,Urine Yellow (Yellow); Glucose,Urine (UA) Normal (Normal); Hyaline Casts,Urine Few per lpf (None Seen); Ketones,Urine Negative (Negative); Leukocyte Esterase,Urine Negative (Negative); Nitrite,Urine Negative (Negative); Protein,Urine 200 mg/dL (Neg-Trace); RBC,Urine 0-3 per hpf (0-3); Squamous Epithelial Cell,Urine Few per hpf (None-Few); Urobilinogen,Urine Normal (Normal)
[2021-08-19 22:00] LABS: Protein/Creatinine Ratio,Urine 2.66 mg/mg (0.00-0.20)
[2021-08-20] MEDS: Albumin 25% 25gram/100mL 25 GM/100 ML IV.SOLN IVPB SCH ×3 (00:26→18:01)
[2021-08-20] MEDS ORDERED: Piperacillin/Tazobactam 3.375 GM VIAL ONE (04:42)
[2021-08-20] MEDS: Pantoprazole 40 MG VIAL IVP SCH ×2 (05:00→17:59)
[2021-08-20] MEDS: Piperacillin/Tazobactam 3.375 GM in 0.9 % Sodium Chloride Mini Bag 100 ML IVPB SCH (05:02)
[2021-08-20 08:23] LABS: VBG Ionized Calcium 1.06 mmol/L (1.15-1.35)
[2021-08-20 08:25] LABS: Basophils # 0.1 K/mcL (0.0-0.2); Basophils % 0.6 %; Eosinophils # 0.1 K/mcL (0.0-0.6); Eosinophils % 0.3 %; Hematocrit 26.7 % (37.5-50.1); Hemoglobin 8.6 g/dL (12.9-16.9); Immature Granulocytes % 3.3 % (0-4); Lymphocytes % 6.5 %; Mean Corpuscular HGB Conc 32.2 g/dL (31.6-35.5); Mean Corpuscular Hemoglobin 29.2 pg (28.0-33.3); Mean Corpuscular Volume 90.5 fL (83.0-100.0); Mean Platelet Volume 11.2 fL (9.4-12.4); Monocytes # 1.3 K/mcL (0.0-1.3); Monocytes % 8.1 %; Nucleated Red Blood Cells 0.9 /100 WBC (0); Platelet Count 219 K/mcL (140-400); Red Blood Count 2.95 M/mcL (4.19-5.50); Red Cell Distribution Width 16.1 % (11.5-14.5); Segmented Neutrophils % 81.2 %
[2021-08-20 08:27] LABS: Calcium 8.6 mg/dL (8.6-10.3); Phosphorous 4.4 mg/dL (2.7-4.5); Potassium 4.3 mEq/L (3.5-5.1)
[2021-08-20] MEDS: Aspirin Enteric Coated 81 MG Tablet PO SCH (09:04)
[2021-08-20] MEDS: Nystatin POWDER 30 GM BOTTLE TP SCH ×2 (09:06→20:44)
[2021-08-20] MEDS ORDERED: Heparin 1,000 UNITS/500 mL 500 ML ONE (11:27)
[2021-08-20] MEDS ORDERED: Lidocaine/EPI 1:100k 1% 50 ML VIAL ONE (11:27)
[2021-08-20] MEDS ORDERED: 0.9 % Sodium Chloride 250 ML IVC PRN ×2 (11:31→11:34)
[2021-08-20] MEDS ORDERED: *HR* Heparin 10,000 UNIT/10 ML VIAL IV PRN (11:34)
[2021-08-20] MEDS ORDERED: 0.9 % Sodium Chloride 1,000 ML PRIME SCH (11:45)
[2021-08-20] MEDS ORDERED: *HR* Heparin 5,000 UNIT/ML VIAL ONE (12:41)
[2021-08-20] MEDS: Norepinephrine 4 MG/254 ML IV.SOLN IVC SCH (17:54)
[2021-08-21] MEDS: Albumin 25% 25gram/100mL 25 GM/100 ML IV.SOLN IVPB SCH ×3 (01:29→16:13)
[2021-08-21 04:10] LABS: VBG Ionized Calcium 1.08 mmol/L (1.15-1.35)
[2021-08-21 04:21] LABS: Calcium 8.5 mg/dL (8.6-10.3); Phosphorous 3.7 mg/dL (2.7-4.5); Potassium 3.9 mEq/L (3.5-5.1)
[2021-08-21 05:11] LABS: Hematocrit 24.9 % (37.5-50.1); Hemoglobin 7.8 g/dL (12.9-16.9); Mean Corpuscular Hemoglobin 28.9 pg (28.0-33.3); Mean Corpuscular Volume 92.2 fL (83.0-100.0)
[2021-08-21 05:12] LABS: Basophils # 0.1 K/mcL (0.0-0.2); Basophils % 0.5 %; Eosinophils # 0.1 K/mcL (0.0-0.6); Eosinophils % 0.9 %; Immature Granulocytes % 2.2 % (0-4); Lymphocytes # 1.3 K/mcL (0.6-4.6); Lymphocytes % 9.8 %; Mean Corpuscular HGB Conc 31.3 g/dL (31.6-35.5); Mean Platelet Volume 12.1 fL (9.4-12.4); Monocytes # 1.1 K/mcL (0.0-1.3); Monocytes % 8.7 %; Neutrophils # 10.1 K/mcL (1.6-8.9); Platelet Count 150 K/mcL (140-400); Red Cell Distribution Width 17.2 % (11.5-14.5); Segmented Neutrophils % 77.9 %
[2021-08-21] MEDS: Pantoprazole 40 MG VIAL IVP SCH ×2 (06:04→22:04)
[2021-08-21] MEDS ORDERED: 0.9 % Sodium Chloride 250 ML IVC PRN (07:40)
[2021-08-21] MEDS ORDERED: *HR* Heparin 10,000 UNIT/10 ML VIAL IV PRN (07:40)
[2021-08-21] MEDS: Aspirin Enteric Coated 81 MG Tablet PO SCH (08:22)
[2021-08-21] MEDS: Nystatin POWDER 30 GM BOTTLE TP SCH ×2 (08:27→22:04)
[2021-08-21] MEDS: Norepinephrine 4 MG/254 ML IV.SOLN IVC SCH ×2 (08:33→22:05)
[2021-08-21 13:16] LABS: Lambda Qnt Free Light Chains 47.98 mg/L (5.71-26.30)
[2021-08-22] MEDS: Albumin 25% 25gram/100mL 25 GM/100 ML IV.SOLN IVPB SCH ×3 (00:38→17:46)
[2021-08-22 02:45] LABS: VBG Ionized Calcium 1.01 mmol/L (1.15-1.35)
[2021-08-22 02:54] LABS: Calcium 8.6 mg/dL (8.6-10.3); Phosphorous 2.8 mg/dL (2.7-4.5); Potassium 3.9 mEq/L (3.5-5.1)
[2021-08-22 02:55] LABS: Basophils % 0.5 %; Mean Corpuscular Hemoglobin 29.4 pg (28.0-33.3)
[2021-08-22 02:56] LABS: Iron 51 mcg/dL (65-175)
[2021-08-22 02:57] LABS: Basophils # 0.1 K/mcL (0.0-0.2); Eosinophils # 0.1 K/mcL (0.0-0.6); Eosinophils % 0.7 %; Immature Granulocytes % 2.1 % (0-4); Immature Platelets 11.3 % (1.1-6.1); Lymphocytes % 10.5 %; Mean Corpuscular Volume 91.9 fL (83.0-100.0); Mean Platelet Volume 11.9 fL (9.4-12.4); Monocytes # 1.3 K/mcL (0.0-1.3); Neutrophils # 9.8 K/mcL (1.6-8.9); Nucleated Red Blood Cells 1.4 /100 WBC (0); Red Blood Count 2.72 M/mcL (4.19-5.50); Red Cell Distribution Width 17.8 % (11.5-14.5); Segmented Neutrophils % 76.2 %; White Blood Count 12.8 K/mcL (4.3-11.1)
[2021-08-22 03:31] LABS: Lymphocytes # 1.3 K/mcL (0.6-4.6); Platelet Count 95 K/mcL (140-400)
[2021-08-22 03:33] LABS: Large Platelets Present (Not Present); Platelet Estimate Decreased (Normal)
[2021-08-22] MEDS: Pantoprazole 40 MG VIAL IVP SCH ×2 (05:42→17:56)
[2021-08-22] MEDS: Aspirin Enteric Coated 81 MG Tablet PO SCH (07:54)
[2021-08-22] MEDS: Nystatin POWDER 30 GM BOTTLE TP SCH (07:54)
[2021-08-22] MEDS ORDERED: *HR* Heparin 10,000 UNIT/10 ML VIAL IV PRN ×2 (09:01)
[2021-08-22] MEDS ORDERED: 0.9 % Sodium Chloride 250 ML IVC PRN (09:01)
[2021-08-22] MEDS ORDERED: 0.9 % Sodium Chloride 1,000 ML PRIME SCH (09:15)
[2021-08-22 10:25] LABS: ANA IgG by ELISA NONE DETECTED (None Detected); Kappa Qnt Free Light Chains 96.13 mg/L (3.30-19.40)
[2021-08-22] MEDS: Norepinephrine 4 MG/254 ML IV.SOLN IVC SCH (17:45)
[2021-08-23] MEDS: Nystatin POWDER 30 GM BOTTLE TP SCH ×3 (05:04→20:18)
[2021-08-23] MEDS: Albumin 25% 25gram/100mL 25 GM/100 ML IV.SOLN IVPB SCH ×2 (05:07→10:17)
[2021-08-23] MEDS: Pantoprazole 40 MG VIAL IVP SCH ×2 (05:13→16:12)
[2021-08-23 05:36] LABS: Basophils # 0.1 K/mcL (0.0-0.2); Basophils % 0.5 %; Eosinophils # 0.1 K/mcL (0.0-0.6); Eosinophils % 0.6 %; Hematocrit 25.3 % (37.5-50.1); Immature Granulocytes % 1.4 % (0-4); Immature Platelets 11.7 % (1.1-6.1); Lymphocytes # 1.5 K/mcL (0.6-4.6); Lymphocytes % 12.3 %; Mean Corpuscular HGB Conc 31.6 g/dL (31.6-35.5); Mean Corpuscular Hemoglobin 29.3 pg (28.0-33.3); Mean Corpuscular Volume 92.7 fL (83.0-100.0); Mean Platelet Volume 12.2 fL (9.4-12.4); Monocytes # 1.1 K/mcL (0.0-1.3); Monocytes % 9.2 %; Neutrophils # 9.2 K/mcL (1.6-8.9); Nucleated Red Blood Cells 0.7 /100 WBC (0); Red Blood Count 2.73 M/mcL (4.19-5.50); White Blood Count 12.1 K/mcL (4.3-11.1)
[2021-08-23 05:37] LABS: Platelet Count 71 K/mcL (140-400)
[2021-08-23] MEDS: Norepinephrine 4 MG/254 ML IV.SOLN IVC SCH ×2 (10:13→23:06)
[2021-08-23] MEDS: Aspirin Enteric Coated 81 MG Tablet PO SCH (10:18)
[2021-08-23 12:20] LABS: Albumin 4.5 g/dL (3.5-5.7); Albumin/Globulin Ratio 3.8 (1.1-2.2); Calcium 8.8 mg/dL (8.6-10.3); Globulin 1.2 g/dL (2.4-3.5); Total Protein 5.7 g/dL (6.4-8.9)
[2021-08-23 13:55] LABS: Ferritin > 1500 ng/mL (20-250)
[2021-08-24 01:59] LABS: ANCA IFA Titer <1:20 (<1:20)
[2021-08-24 04:06] LABS: Alpha 2 Globulin (PEP) 0.84 g/dL (0.48-1.05); Beta Globulin (PEP) 0.36 g/dL (0.48-1.10)
[2021-08-24] MEDS: Pantoprazole 40 MG VIAL IVP SCH ×2 (06:33→16:48)
[2021-08-24 07:08] LABS: Basophils # 0.1 K/mcL (0.0-0.2); Basophils % 0.4 %; Eosinophils % 0.3 %; Hematocrit 27.2 % (37.5-50.1); Hemoglobin 8.6 g/dL (12.9-16.9); Immature Granulocytes % 1.2 % (0-4); Lymphocytes # 1.7 K/mcL (0.6-4.6); Lymphocytes % 12.3 %; Mean Corpuscular HGB Conc 31.6 g/dL (31.6-35.5); Mean Corpuscular Hemoglobin 29.3 pg (28.0-33.3); Mean Corpuscular Volume 92.5 fL (83.0-100.0); Mean Platelet Volume 12.2 fL (9.4-12.4); Monocytes # 1.3 K/mcL (0.0-1.3); Monocytes % 9.4 %; Nucleated Red Blood Cells 0.5 /100 WBC (0); Red Blood Count 2.94 M/mcL (4.19-5.50); Red Cell Distribution Width 19.7 % (11.5-14.5); Segmented Neutrophils % 76.4 %; White Blood Count 13.7 K/mcL (4.3-11.1)
[2021-08-24 07:10] LABS: Neutrophils # 10.5 K/mcL (1.6-8.9); Platelet Count 83 K/mcL (140-400)
[2021-08-24 07:27] LABS: Albumin 4.2 g/dL (3.5-5.7); Bilirubin,Total 2.3 mg/dL (0.3-1.0); Calcium 8.9 mg/dL (8.6-10.3); Globulin 1.4 g/dL (2.4-3.5); Potassium 4.3 mEq/L (3.5-5.1); Total Protein 5.6 g/dL (6.4-8.9)
[2021-08-24 08:26] LABS: IFE Reflexed IFE Done; Immunoglobulin A 142 mg/dL (68-408); Immunoglobulin G 563 mg/dL (768-1632); Immunoglobulin M 21 mg/dL (35-263)
[2021-08-24 08:27] LABS: ANCA IFA Pattern NONE DETECTED (None Detected); Serine Protease-3 Antibody 1 AU/mL (0-19)
[2021-08-24] MEDS ORDERED: *HR* Heparin 10,000 UNIT/10 ML VIAL IV PRN (08:30)
[2021-08-24] MEDS ORDERED: 0.9 % Sodium Chloride 250 ML IVC PRN (08:30)
[2021-08-24] MEDS ORDERED: 0.9 % Sodium Chloride 1,000 ML PRIME SCH (08:30)
[2021-08-24] MEDS: Nystatin POWDER 30 GM BOTTLE TP SCH ×2 (09:28→19:57)
[2021-08-25] MEDS: Pantoprazole 40 MG VIAL IVP SCH (05:34)
[2021-08-25 06:35] LABS: Basophils # 0.1 K/mcL (0.0-0.2); Basophils % 0.5 %; Eosinophils # 0.1 K/mcL (0.0-0.6); Eosinophils % 0.8 %; Hematocrit 27.7 % (37.5-50.1); Hemoglobin 8.8 g/dL (12.9-16.9); Immature Granulocytes % 0.7 % (0-4); Immature Platelets 15.4 % (1.1-6.1); Lymphocytes # 1.8 K/mcL (0.6-4.6); Lymphocytes % 11.8 %; Mean Corpuscular HGB Conc 31.8 g/dL (31.6-35.5); Mean Corpuscular Volume 91.4 fL (83.0-100.0); Mean Platelet Volume 12.9 fL (9.4-12.4); Monocytes # 1.1 K/mcL (0.0-1.3); Monocytes % 7.5 %; Neutrophils # 11.8 K/mcL (1.6-8.9); Nucleated Red Blood Cells 0.1 /100 WBC (0); Red Blood Count 3.03 M/mcL (4.19-5.50); Red Cell Distribution Width 19.9 % (11.5-14.5); Segmented Neutrophils % 78.7 %
[2021-08-25 06:37] LABS: Platelet Count 51 K/mcL (140-400)
[2021-08-25 06:47] LABS: Albumin/Globulin Ratio 2.9 (1.1-2.2); Calcium 8.9 mg/dL (8.6-10.3); Globulin 1.4 g/dL (2.4-3.5); Potassium 3.9 mEq/L (3.5-5.1); Total Protein 5.4 g/dL (6.4-8.9)
[2021-08-25] MEDS: Nystatin POWDER 30 GM BOTTLE TP SCH ×2 (08:49→19:45)
[2021-08-26 03:05] LABS: Transferrin < 75 mg/dL (203-362)
[2021-08-26 05:55] LABS: Immature Granulocytes % 0.7 % (0-4)
[2021-08-26 05:57] LABS: Basophils # 0.1 K/mcL (0.0-0.2); Basophils % 0.4 %; Eosinophils # 0.2 K/mcL (0.0-0.6); Eosinophils % 1.1 %; Hematocrit 28.6 % (37.5-50.1); Immature Platelets 10.8 % (1.1-6.1); Lymphocytes # 1.7 K/mcL (0.6-4.6); Lymphocytes % 12.4 %; Mean Corpuscular HGB Conc 31.5 g/dL (31.6-35.5); Mean Corpuscular Hemoglobin 29.2 pg (28.0-33.3); Mean Corpuscular Volume 92.9 fL (83.0-100.0); Mean Platelet Volume 12.5 fL (9.4-12.4); Monocytes # 1.1 K/mcL (0.0-1.3); Neutrophils # 10.7 K/mcL (1.6-8.9); Red Blood Count 3.08 M/mcL (4.19-5.50); Red Cell Distribution Width 20.7 % (11.5-14.5); Segmented Neutrophils % 77.4 %; White Blood Count 13.8 K/mcL (4.3-11.1)
[2021-08-26 05:58] LABS: Platelet Count 72 K/mcL (140-400)
[2021-08-26 06:20] LABS: Calcium 9.1 mg/dL (8.6-10.3); Potassium 4.4 mEq/L (3.5-5.1)
[2021-08-26] MEDS ORDERED: *HR* FentaNYL (PF) 100 MCG/2 ML VIAL IVP ONE (08:01)
[2021-08-26] MEDS ORDERED: *HR* Midazolam HCl 2 MG/2 ML VIAL IVP ONE (08:01)
[2021-08-26] MEDS ORDERED: Heparin 1,000 UNITS/500 mL 500 ML ONE (08:04)
[2021-08-26] MEDS ORDERED: Lidocaine/EPI 1:100k 1% 50 ML VIAL ONE (08:04)
[2021-08-26] MEDS ORDERED: 0.9 % Sodium Chloride 500 ML ONE ×2 (08:06→08:12)
[2021-08-26] MEDS: ceFAZolin 1,000 MG in 0.9 % Sodium Chloride Mini Bag 100 ML IVPB SCH ×2 (08:24→08:31)
[2021-08-26] MEDS ORDERED: *HR* Heparin 5,000 UNIT/ML VIAL ONE (08:27)
[2021-08-26] MEDS ORDERED: 0.9 % Sodium Chloride 250 ML IVC PRN (08:47)
[2021-08-26] MEDS ORDERED: *HR* Heparin 10,000 UNIT/10 ML VIAL IV PRN (08:47)
[2021-08-26] MEDS: Nystatin POWDER 30 GM BOTTLE TP SCH ×2 (13:56→20:49)
[2021-08-26] MEDS ORDERED: 0.9 % Sodium Chloride 500 ML IVC SCH (17:15)
[2021-08-26] MEDS: Cefepime HCl 2,000 MG in 0.9 % Sodium Chloride Mini Bag 100 ML IVPB SCH (17:59)
[2021-08-26] MEDS: metroNIDAZOLE 500 MG TABLET PO SCH ×2 (17:59→20:49)
[2021-08-27 01:36] LABS: Hematocrit 28.1 % (37.5-50.1); Hemoglobin 8.9 g/dL (12.9-16.9); Mean Corpuscular HGB Conc 31.7 g/dL (31.6-35.5); Mean Corpuscular Hemoglobin 29.4 pg (28.0-33.3); Mean Corpuscular Volume 92.7 fL (83.0-100.0); Red Blood Count 3.03 M/mcL (4.19-5.50); Red Cell Distribution Width 20.5 % (11.5-14.5); White Blood Count 13.6 K/mcL (4.3-11.1)
[2021-08-27 01:37] LABS: Platelet Count 51 K/mcL (140-400)
[2021-08-27 01:40] LABS: Amorphous Sediment,Urine Few per hpf (None-Few); Bacteria,Urine Few per hpf (None-Few); Bilirubin,Urine Negative (Negative); Blood,Urine Large (Negative); Clarity,Urine Ex.Turbid (Clear); Color,Urine Yellow (Yellow); Glucose,Urine (UA) Normal (Normal); Hyaline Casts,Urine Few per lpf (None Seen); Ketones,Urine Trace mg/dL (Negative); Leukocyte Esterase,Urine Large (Negative); Mucus,Urine Few per lpf (None-Few); Nitrite,Urine Negative (Negative); Protein,Urine >=600 mg/dL (Neg-Trace); RBC,Urine 50-100 per hpf (0-3); Renal Epithelial Cells,Urine Few per hpf (None-Few); Specific Gravity,Urine 1.023 (1.010-1.025); Sperm,Urine Present per hpf (None Seen); Squamous Epithelial Cell,Urine Moderate per hpf (None-Few); Transitional Epi Cells,Urine Few per hpf (None-Few); WBC,Urine TNTC per hpf (0-3)
[2021-08-27 01:49] LABS: Calcium 8.6 mg/dL (8.6-10.3); Potassium 4.4 mEq/L (3.5-5.1)
[2021-08-27 02:17] LABS: Protein/Creatinine Ratio,Urine 5.75 mg/mg (0.00-0.20)
[2021-08-27] MEDS: metroNIDAZOLE 500 MG TABLET PO SCH ×3 (07:57→21:22)
[2021-08-27] MEDS: Nystatin POWDER 30 GM BOTTLE TP SCH ×2 (07:57→21:22)
[2021-08-28 07:16] LABS: Mean Corpuscular Volume 93.9 fL (83.0-100.0)
[2021-08-28 07:17] LABS: Hematocrit 29.2 % (37.5-50.1); Hemoglobin 9.2 g/dL (12.9-16.9); Immature Platelets 11.5 % (1.1-6.1); Mean Corpuscular HGB Conc 31.5 g/dL (31.6-35.5); Mean Corpuscular Hemoglobin 29.6 pg (28.0-33.3); Mean Platelet Volume 12.8 fL (9.4-12.4); Red Blood Count 3.11 M/mcL (4.19-5.50); Red Cell Distribution Width 21.1 % (11.5-14.5); White Blood Count 11.7 K/mcL (4.3-11.1)
[2021-08-28 07:22] LABS: Calcium 9.1 mg/dL (8.6-10.3); Potassium 4.1 mEq/L (3.5-5.1)
[2021-08-28] MEDS: metroNIDAZOLE 500 MG TABLET PO SCH ×3 (07:35→21:02)
[2021-08-28] MEDS: Nystatin POWDER 30 GM BOTTLE TP SCH ×2 (07:36→21:02)
[2021-08-28] MEDS ORDERED: 0.9 % Sodium Chloride 250 ML IVC PRN (08:45)
[2021-08-28] MEDS ORDERED: *HR* Heparin 10,000 UNIT/10 ML VIAL IV PRN (08:45)
[2021-08-28 12:04] LABS: Potassium 3.5 mEq/L (3.5-5.1)
[2021-08-28 12:08] LABS: Troponin I 0.19 ng/mL (< 0.04)
[2021-08-28] MEDS: Cefepime HCl 2,000 MG in 0.9 % Sodium Chloride Mini Bag 100 ML IVPB SCH (16:34)
[2021-08-29] MEDS: metroNIDAZOLE 500 MG TABLET PO SCH ×3 (07:58→20:48)
[2021-08-29] MEDS: Nystatin POWDER 30 GM BOTTLE TP SCH ×2 (09:00→20:50)
[2021-08-30 05:54] LABS: Eosinophils % 1.5 %; Hemoglobin 9.4 g/dL (12.9-16.9); Immature Granulocytes % 0.6 % (0-4); Lymphocytes % 10.6 %
[2021-08-30 05:56] LABS: Basophils # 0.1 K/mcL (0.0-0.2); Basophils % 0.5 %; Eosinophils # 0.2 K/mcL (0.0-0.6); Hematocrit 30.5 % (37.5-50.1); Immature Platelets 11.4 % (1.1-6.1); Lymphocytes # 1.3 K/mcL (0.6-4.6); Mean Corpuscular HGB Conc 30.8 g/dL (31.6-35.5); Mean Corpuscular Hemoglobin 29.3 pg (28.0-33.3); Mean Platelet Volume 12.4 fL (9.4-12.4); Monocytes # 1.1 K/mcL (0.0-1.3); Monocytes % 8.4 %; Neutrophils # 9.8 K/mcL (1.6-8.9); Red Blood Count 3.21 M/mcL (4.19-5.50); Red Cell Distribution Width 21.9 % (11.5-14.5); Segmented Neutrophils % 78.4 %; White Blood Count 12.5 K/mcL (4.3-11.1)
[2021-08-30 06:04] LABS: Platelet Count 89 K/mcL (140-400)
[2021-08-30 06:14] LABS: Calcium 9.4 mg/dL (8.6-10.3); Magnesium 2.1 mg/dL (1.6-2.6); Phosphorous 4.6 mg/dL (2.7-4.5); Potassium 3.9 mEq/L (3.5-5.1)
[2021-08-30] MEDS: metroNIDAZOLE 500 MG TABLET PO SCH ×3 (07:25→19:42)
[2021-08-30] MEDS: Nystatin POWDER 30 GM BOTTLE TP SCH ×2 (09:51→19:42)
[2021-08-31 02:40] LABS: Basophils # 0.1 K/mcL (0.0-0.2); Basophils % 0.4 %; Eosinophils # 0.2 K/mcL (0.0-0.6); Eosinophils % 1.5 %; Hematocrit 28.9 % (37.5-50.1); Hemoglobin 9.2 g/dL (12.9-16.9); Immature Granulocytes % 0.5 % (0-4); Lymphocytes # 1.4 K/mcL (0.6-4.6); Lymphocytes % 12.4 %; Mean Corpuscular HGB Conc 31.8 g/dL (31.6-35.5); Mean Corpuscular Hemoglobin 30.5 pg (28.0-33.3); Mean Corpuscular Volume 95.7 fL (83.0-100.0); Mean Platelet Volume 11.8 fL (9.4-12.4); Monocytes % 8.5 %; Neutrophils # 8.9 K/mcL (1.6-8.9); Platelet Count 117 K/mcL (140-400); Red Blood Count 3.02 M/mcL (4.19-5.50); Red Cell Distribution Width 22.1 % (11.5-14.5); Segmented Neutrophils % 76.7 %; White Blood Count 11.6 K/mcL (4.3-11.1)
[2021-08-31 03:02] LABS: Potassium 4.1 mEq/L (3.5-5.1)
[2021-08-31] MEDS ORDERED: 0.9 % Sodium Chloride 250 ML IVC PRN (09:03)
[2021-08-31] MEDS ORDERED: *HR* Heparin 10,000 UNIT/10 ML VIAL IV PRN (09:03)
[2021-08-31] MEDS: metroNIDAZOLE 500 MG TABLET PO SCH ×3 (09:38→20:17)
[2021-08-31] MEDS: Nystatin POWDER 30 GM BOTTLE TP SCH ×2 (09:40→20:18)
[2021-08-31] MEDS: Cefepime HCl 2,000 MG in 0.9 % Sodium Chloride Mini Bag 100 ML IVPB SCH (18:47)
[2021-09-01 07:04] LABS: Basophils % 0.3 %; Hematocrit 31.4 % (37.5-50.1); Hemoglobin 9.8 g/dL (12.9-16.9); Mean Corpuscular HGB Conc 31.2 g/dL (31.6-35.5)
[2021-09-01 07:06] LABS: Eosinophils # 0.1 K/mcL (0.0-0.6); Eosinophils % 0.8 %; Immature Granulocytes % 0.6 % (0-4); Immature Platelets 12.8 % (1.1-6.1); Lymphocytes # 1.4 K/mcL (0.6-4.6); Mean Corpuscular Hemoglobin 29.8 pg (28.0-33.3); Mean Corpuscular Volume 95.4 fL (83.0-100.0); Mean Platelet Volume 12.2 fL (9.4-12.4); Monocytes % 6.8 %; Neutrophils # 11.7 K/mcL (1.6-8.9); Red Blood Count 3.29 M/mcL (4.19-5.50); Red Cell Distribution Width 22.4 % (11.5-14.5); Segmented Neutrophils % 81.5 %; White Blood Count 14.4 K/mcL (4.3-11.1)
[2021-09-01 07:08] LABS: Platelet Count 62 K/mcL (140-400)
[2021-09-01 07:40] LABS: Calcium 9.2 mg/dL (8.6-10.3); Potassium 4.3 mEq/L (3.5-5.1)
[2021-09-01] MEDS: metroNIDAZOLE 500 MG TABLET PO SCH ×3 (08:38→21:07)
[2021-09-01] MEDS: Nystatin POWDER 30 GM BOTTLE TP SCH ×2 (08:43→21:07)
[2021-09-01 12:42] LABS: Albumin 4.1 g/dL (3.5-5.7); Albumin/Globulin Ratio 2.1 (1.1-2.2); Bilirubin,Direct 0.7 mg/dL (0.0-0.2); Bilirubin,Indirect 1.3 mg/dL (0.0-1.0); Total Protein 6.1 g/dL (6.4-8.9)
[2021-09-01 16:09] LABS: Adenovirus Not Detected (Not Detect); Bordetella Pertussis Not Detected (Not Detect); Chlamydophila pneumoniae Not Detected (Not Detect); Coronavirus 229E Not Detected (Not Detect); Coronavirus HKU1 Not Detected (Not Detect); Coronavirus NL63 Not Detected (Not Detect); Coronavirus OC43 Not Detected (Not Detect); Human Metapneumovirus Not Detected (Not Detect); Human Rhinovirus/Enterovirus Not Detected (Not Detect); Influenza A Subtype 2009 H1 Not Detected (Not Detect); Influenza B Not Detected (Not Detect); Mycoplasma pneumoniae Not Detected (Not Detect); Parainfluenza Virus 1 Not Detected (Not Detect); Parainfluenza Virus 2 Not Detected (Not Detect); Parainfluenza Virus 3 Not Detected (Not Detect); Parainfluenza Virus 4 Not Detected (Not Detect); Respiratory Syncytial Virus Not Detected (Not Detect); SARS-CoV-2 Not Detected (Not Detect)
[2021-09-02 06:36] LABS: Lymphocytes % 11.8 %; Mean Corpuscular HGB Conc 29.9 g/dL (31.6-35.5); Mean Corpuscular Volume 99.4 fL (83.0-100.0)
[2021-09-02 06:38] LABS: Basophils # 0.1 K/mcL (0.0-0.2); Basophils % 0.4 %; Eosinophils # 0.1 K/mcL (0.0-0.6); Hematocrit 33.5 % (37.5-50.1); Immature Granulocytes % 0.7 % (0-4); Immature Platelets 9.1 % (1.1-6.1); Lymphocytes # 1.4 K/mcL (0.6-4.6); Mean Corpuscular Hemoglobin 29.7 pg (28.0-33.3); Mean Platelet Volume 12.7 fL (9.4-12.4); Monocytes # 1.1 K/mcL (0.0-1.3); Monocytes % 9.2 %; Neutrophils # 9.1 K/mcL (1.6-8.9); Red Blood Count 3.37 M/mcL (4.19-5.50); Red Cell Distribution Width 22.7 % (11.5-14.5); Segmented Neutrophils % 76.9 %; White Blood Count 11.8 K/mcL (4.3-11.1)
[2021-09-02 06:40] LABS: Platelet Count 76 K/mcL (140-400)
[2021-09-02] MEDS: Nystatin POWDER 30 GM BOTTLE TP SCH ×2 (08:06→22:00)
[2021-09-02] MEDS: Metoprolol XL (24 HR) Succ 25 MG TAB.ER.24H PO SCH (08:06)
[2021-09-02] MEDS: metroNIDAZOLE 500 MG TABLET PO SCH ×3 (08:06→20:29)
[2021-09-02] MEDS ORDERED: *HR* Heparin 10,000 UNIT/10 ML VIAL IV PRN (08:12)
[2021-09-02] MEDS ORDERED: 0.9 % Sodium Chloride 250 ML IVC PRN (08:12)
[2021-09-02] MEDS ORDERED: Aspirin Enteric Coated 81 MG Tablet PO SCH (09:00)
[2021-09-02] MEDS: Cefepime HCl 2,000 MG in 0.9 % Sodium Chloride Mini Bag 100 ML IVPB SCH (20:36)
[2021-09-03 02:19] LABS: Eosinophils % 0.9 %; Mean Corpuscular Hemoglobin 30.7 pg (28.0-33.3); Monocytes % 6.3 %
[2021-09-03 02:21] LABS: Basophils % 0.2 %; Eosinophils # 0.1 K/mcL (0.0-0.6); Hematocrit 30.3 % (37.5-50.1); Hemoglobin 9.8 g/dL (12.9-16.9); Immature Granulocytes % 0.4 % (0-4); Immature Platelets 13.8 % (1.1-6.1); Lymphocytes # 1.2 K/mcL (0.6-4.6); Lymphocytes % 9.5 %; Mean Corpuscular HGB Conc 32.3 g/dL (31.6-35.5); Mean Platelet Volume 13.9 fL (9.4-12.4); Monocytes # 0.8 K/mcL (0.0-1.3); Neutrophils # 10.5 K/mcL (1.6-8.9); Red Blood Count 3.19 M/mcL (4.19-5.50); Red Cell Distribution Width 22.3 % (11.5-14.5); Segmented Neutrophils % 82.7 %; White Blood Count 12.7 K/mcL (4.3-11.1)
[2021-09-03 02:22] LABS: Platelet Count 46 K/mcL (140-400)
[2021-09-03 02:40] LABS: Calcium 8.5 mg/dL (8.6-10.3); Potassium 3.9 mEq/L (3.5-5.1)
[2021-09-03 03:19] LABS: Calcium 8.7 mg/dL (8.6-10.3)
[2021-09-03] MEDS: metroNIDAZOLE 500 MG TABLET PO SCH ×3 (09:31→21:20)
[2021-09-03] MEDS: Metoprolol XL (24 HR) Succ 25 MG TAB.ER.24H PO SCH (09:31)
[2021-09-03] MEDS: Nystatin POWDER 30 GM BOTTLE TP SCH ×2 (09:32→21:23)
[2021-09-04] MEDS ORDERED: *HR* Heparin 10,000 UNIT/10 ML VIAL IV PRN (08:18)
[2021-09-04] MEDS ORDERED: 0.9 % Sodium Chloride 250 ML IVC PRN (08:18)
[2021-09-04] MEDS: Metoprolol XL (24 HR) Succ 25 MG TAB.ER.24H PO SCH (08:34)
[2021-09-04] MEDS: metroNIDAZOLE 500 MG TABLET PO SCH ×2 (08:34→14:50)
[2021-09-04] MEDS: Nystatin POWDER 30 GM BOTTLE TP SCH (08:38)
[2021-09-04 15:25] VITALS: BP 149/68; PULSE 64; TEMP 97.9; O2SAT 92
== END 2021-09-04 16:56 | DRG 871 ==
LOC: 2NNU → OBSVTOIN 08-15 03:43 → SUATTDRO 08-15 03:43 → 2ANU 08-21 18:43
PROVIDERS: ADMIT Family Medicine; ATTEND Internal Medicine
PROC: ENDOEBX (2021-08-19 14:40)
PROC: IRPERMA (2021-08-26 12:00)

== ENCOUNTER 2021-09-29 15:10 | Observation (INO) ==
[2021-09-29] MEDS ORDERED: *HR* Norepinephrine 4 MG/4 ML VIAL IVC ONE (17:09)
[2021-09-29] MEDS ORDERED: *HR* Amiodarone 150 MG/3 ML VIAL IVPB ONE (17:09)
[2021-09-29] MEDS ORDERED: Norepinephrine 4 MG/254 ML in 0.9% Sodium Chloride IVC ONE (17:09)
[2021-09-29] MEDS ORDERED: *HR* EPINEPHrine 1 MG/10 ML SYRINGE IVP ONE (17:09)
== END 2021-09-29 17:10 | disposition expired ==
LOC: ICNU
PROVIDERS: ADMIT Family Medicine; ATTEND Family Medicine